=== PATIENT | male | born 1980 | race Caucasian/White ===

== ENCOUNTER 2020-10-02 13:58 | Inpatient (IN) | payer MEDICAID, OTHER ==
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
[2020-10-02 14:57] LABS: Appearance,Urine Clear (Clear); Bilirubin,Urine Negative (Negative); Blood,Urine Negative (Negative); Color,Urine Yellow; Glucose,Urine (UA) Negative (Negative); Ketones,Urine Negative (Negative); Leukocyte Esterase,Urine Negative (Negative); Nitrite,Urine Negative (Negative); PH, Urine 5.5 (5.0-8.0); Protein,Urine Negative (Negative); Specific Gravity,Urine 1.016 (1.001-1.035); Urobilinogen,Urine <2.0 mg/dL (<2.0)
[2020-10-02 15:08] LABS: Amphetamine Screen,Urine Not Detected (NotDetected); Benzodiazepines Screen,Urine Not Detected (NotDetected); Cocaine Screen,Urine Detected (NotDetected); Methadone Screen, Urine Detected (NotDetected); Opiate Screen,Urine Detected (NotDetected); Phencyclidine Screen,Urine Not Detected (NotDetected); Tricyclic Antidepressant,Urine Not Detected (NotDetected); Urn Cannabinoid Scrn Not Detected (NotDetected)
[2020-10-02 15:09] LABS: Barbiturate Screen,Urine Detected (NotDetected); Oxycodone Screen, Urine Not Detected (NotDetected)
[2020-10-02] MEDS ORDERED: LORazepam 2 MG/ML INJ IM STA (18:23)
[2020-10-02] MEDS ORDERED: diphenhydrAMINE 50 MG CAP PO STA (21:28)
[2020-10-02] MEDS ORDERED: LORazepam 1 MG TAB PO STA (21:28)
[2020-10-02] MEDS ORDERED: ACETAMINOPHEN TAB 325 MG TAB PO PRN (23:12)
[2020-10-02] MEDS ORDERED: MAG HYDROX/AL HYDROX/SIMETH 30 ML CUP PO PRN (23:12)
[2020-10-02] MEDS ORDERED: MAGNESIUM HYDROXIDE 2,400 MG/10 ML CUP PO PRN (23:12)
[2020-10-02] MEDS ORDERED: HALOPERIDOL LACTATE 5 MG/ML 1 ML VIAL IM PRN (23:15)
[2020-10-03] MEDS: LORazepam 1 MG TAB PO PRN ×3 (06:30→23:02)
[2020-10-03] MEDS: busPIRone HCl 10 MG TAB PO SCH ×2 (08:40→21:05)
[2020-10-03] MEDS: GABAPENTIN 300 MG CAP PO SCH ×3 (08:40→21:06)
[2020-10-03 08:43] LABS: Basophils # (A) 0.1 k/uL (0-0.2); Basophils % (A) 1 %; Eosinophils # (A) 0.1 k/uL (0-0.7); Eosinophils % (A) 1 %; HCT 44.5 % (39.0-53.0); HGB 14.8 gm/dL (13.0-17.5); Lymphocytes # (A) 1.2 k/uL (1.0-4.8); Lymphocytes % (A) 16 %; MCH 29.8 pg (25.0-35.0); MCHC 33.3 g/dL (31.0-37.0); MCV 89.6 fL (80.0-100.0); Mean Platelet Volume 6.5; Monocytes # (A) 0.3 k/uL (0-1.0); Monocytes % (A) 4 %; Neutrophils # (A) 5.9 k/uL (1.3-7.7); Neutrophils % (A) 77 %; Platelet Count 241 k/uL (150-450); RBC 4.97 m/uL (4.30-5.90); WBC 7.6 k/uL (3.8-10.6)
[2020-10-03] MEDS ORDERED: METHADONE HCL 10 MG/ML PO SCH (09:00)
[2020-10-03 09:03] LABS: ALT 24 U/L (4-49); AST 31 U/L (17-59); African American GFR (CKD) >90 (>60 ml/min/1.73 sqM); Albumin 4.4 g/dL (3.5-5.0); Alkaline Phosphatase 56 U/L (38-126); Anion Gap 5 mmol/L; Blood Urea Nitrogen 18 mg/dL (9-20); Calcium 9.3 mg/dL (8.4-10.2); Carbon Dioxide 25 mmol/L (22-30); Chloride 106 mmol/L (98-107); Cholesterol 159 mg/dL (<200); Glucose 122 mg/dL (74-99); HDL Cholesterol 56 mg/dL (40-60); LDL Cholesterol,Calculated 78 mg/dL (0-99); Non-African American GFR(CKD) >90 (>60 ml/min/1.73 sqM); Potassium 4.8 mmol/L (3.5-5.1); Sodium 136 mmol/L (137-145); Total Bilirubin 0.6 mg/dL (0.2-1.3); Total Protein 7.3 g/dL (6.3-8.2); Triglycerides 123 mg/dL (<150)
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
[2020-10-03] MEDS: FLUoxetine HCL 20 MG CAP PO SCH (10:28)
[2020-10-03 11:27] LABS: Appearance,Urine Clear (Clear); Bilirubin,Urine Negative (Negative); Blood,Urine Negative (Negative); Color,Urine Light Yellow; Glucose,Urine (UA) Negative (Negative); Ketones,Urine Negative (Negative); Leukocyte Esterase,Urine Negative (Negative); Nitrite,Urine Negative (Negative); Protein,Urine Negative (Negative); Specific Gravity,Urine 1.006 (1.001-1.035); Urobilinogen,Urine <2.0 mg/dL (<2.0)
[2020-10-03] MEDS: METHADONE 10 MG TAB PO SCH (12:42)
[2020-10-03] MEDS: METHADONE 5 MG TAB PO SCH (12:43)
[2020-10-03] MEDS: NICOTINE 14MG/24HR PATCH TRANSDERM SCH (15:08)
[2020-10-03 15:31] LABS: Hemoglobin A1C 5.6 % (4.0-6.0)
[2020-10-03] MEDS: OLANZapine 2.5 MG TAB PO SCH (21:06)
--- NOTE | 2020-10-04 00:21 | P.MDCNMH ---
History of Present Illness H&P Date: 10/03/20 Chief Complaint: Suicidal ideation 39-year-old male with hepatitis C, bipolar disorder, neuropathy Patient comes in due to suicidal ideation for a few days now he did not try anything however he has relapsed into using drugs again admits to using heroin injecting into to the neck veins. Before that he was clean for over a month, he takes methadone he is on 145 mg. Otherwise he denies any medical complaints at this time denies any symptoms suggestive of URI or GI symptoms denies any chest pain or trouble breathing He claims that his family is and friends are very supportive and he is hoping that he can get better and get rid of his addiction Review of Systems Pertinent positives as noted in HPI. All other systems were reviewed and are negative Past Medical History Additional Past Medical History / Comment(s): hep C History of Any Multi-Drug Resistant Organisms: None Reported Past Surgical History: Hernia Repair Past Psychological History: Anxiety, Depression Smoking Status: Current every day smoker Past Alcohol Use History: None Reported Past Drug Use History: None Reported - Past Family History family Family Medical History: No Reported History Medications and Allergies Home Medications Medication Instructions Recorded Confirmed Type Acetaminophen [Tylenol] 650 mg PO Q6H PRN 10/02/20 10/02/20 History Gabapentin 600 mg PO TID 10/02/20 10/02/20 History Gabapentin [Neurontin] 100 mg PO TID PRN 10/02/20 10/02/20 History Ibuprofen [Advil] 200 mg PO Q6H PRN 10/02/20 10/02/20 History busPIRone HCl [Buspar] 20 mg PO BID 10/02/20 10/02/20 History Methadone HCl [Methadone Intensol] 145 mg PO DAILY 10/03/20 10/03/20 History Allergies Allergy/AdvReac Type Severity Reaction Status Date / Time vancomycin Allergy Rash/Hives/ Verified 10/02/20 15:48 Swelling Physical Exam Vitals: Vital Signs Temp Pulse Resp BP 10/03/20 17:16 98.4 F 10/03/20 06:30 98.6 F 96 16 138/85 Constitutional: No acute distress, conversant, pleasant Eyes: Anicteric sclerae, moist conjunctiva, Pupils equal round reactive to light ENMT: NC/AT Oropharynx clear, no erythema, or exudates Neck: Supple, FROM, no masses, or JVD No carotid bruits No thyromegaly Lungs: Clear to auscultation Clear to percussion Normal respiratory effort, no accessory muscle use Cardiovascular: Heart regular in rate and rhythm, No murmurs, gallops, or rubs No peripheral edema Abdominal: Soft Nontender, no guarding, rebound or rigidity Abdomen moving with respiration Normoactive bowel sounds No hepatomegaly, No splenomegaly No palpable mass No abdominal wall hernia noted Skin: Normal temperature, tone, texture, turgor No induration No subcutaneous nodules No rash, lesions No ulcers Extremities: No digital cyanosis No clubbing Pedal pulses intact and symmetrical Radial pulses intact and symmetrical No calf tenderness Psychiatric: Alert and oriented to person, place and time Depressed affect fair judgement Neuro Muscles Strength 5/5 in all 4 extremities Sensation to light touch grossly present throughout Cranial nerves II-XII grossly intact No focal sensory deficits Lymphatics: no palpable cervical or supraclavicular , or inguinal lymph nodes Cranial Nerve Examination - Cranial Nerves Cranial Nerve II- Optic: Intact Cranial Nerve III- Oculomotor: Intact Cranial Nerve IV- Trochlear: Intact Cranial Nerve V- Trigeminal: Intact Cranial Nerve - Abducens: Intact Cranial Nerve VII- Facial: Intact Cranial Nerve VIII- Auditory: Intact Cranial Nerve IX- Glossopharyngeal: Intact Cranial Nerve X- Vagus: Intact Cranial Nerve XI- Accessory: Intact Cranial Nerve XII- Hypoglossal: Intact Results CBC & Chem 7: 10/03/20 07:57 10/03/20 07:57 Labs: Abnormal Lab Results - Last 24 Hours (Table) 10/03/20 Range/Units 07:57 Sodium 136 L (137-145) mmol/L Glucose 122 H (74-99) mg/dL TSH 0.408 L (0.465-4.680) mIU/L Assessment and Plan Assessment: Bipolar disorder Suicidal ideation Depression Management per psych Peripheral neuropathy Chronic bilateral hand pain Motrin when necessary Hep C Outpatient follow-up Substance abuse Counseled to quit drug of abuse Thank you for allowing us to participate in the care of this patient. We will follow peripherally. Do not hesitate to contact us with questions. Someone can be reached from the [facility] hospitalist group at all hours of the day at [phone].
[2020-10-04] MEDS: GABAPENTIN 300 MG CAP PO SCH ×3 (07:45→21:06)
[2020-10-04] MEDS: IBUPROFEN 600 MG TAB PO PRN (07:46)
[2020-10-04] MEDS: busPIRone HCl 10 MG TAB PO SCH ×3 (07:46→21:06)
[2020-10-04] MEDS: FLUoxetine HCL 20 MG CAP PO SCH (07:46)
[2020-10-04] MEDS: NICOTINE 14MG/24HR PATCH TRANSDERM SCH (07:47)
[2020-10-04] MEDS: METHADONE 10 MG TAB PO SCH (07:47)
[2020-10-04] MEDS: METHADONE 5 MG TAB PO SCH (07:48)
[2020-10-04] MEDS: LORazepam 1 MG TAB PO PRN (09:18)
--- NOTE | 2020-10-04 09:43 | P.PN ---
Progress Note - Text Progress Note Date: 10/04/20 Interval History: Patient was seen [wandering the hallways] and was directable and agreeable to speak with film writer in the office. Patient appears to be more cooperative with the film writer today and claims that his withdrawal symptoms have improved since being restarted on the methadone yesterday. She states that he was able to sleep better last night with the Zyprexa and wants to remain on the same dose. Patient has several questions about his medications and the doses. He claims that he is speaking with other patients on the unit and trying to go to groups as best as he can. He also claims that he spoke with access yesterday over the phone to try to arrange to go to rehab. He claims that his mood has been gradually improving however continues to endorse anxiety on the unit. He states that he has been eating his meals and has been showering. At this time patient denies any suicidal or homical ideations, intent or plan. Patient denies any auditory, visual hallucinations and denies any paranoia or delusions. Patient denies any side effects from the medications and has been compliant with meds. Mental Status Exam: General Appearance: Patient appears to be unwell, stated age is alert, directable, and attempts to cooperate. Patient appears to have improving hygiene and grooming. Behavior: Patient is seated without any agitated behavior. More cooperative today Speech: Patient's speech is fluent and nonpressured. Mood/Affect: Patient reports their mood is anxious, affect is congruent and constricted. Suicidality/Homicidality: Patient denies having any homicidal ideation intent or plan. Denies any suicidal ideations intent or plan Perceptions: Patient denies any visual hallucinations and denies any auditory hallucinations Though content/process: There is no evidence of any delusional thought content and thought process is linear and goal-directed. No delusions. Memory and concentration: AOX3, grossly intact for the purposes of this session Judgment and insight: poor, improving mildly Assessment Depressive disorder unspecified, rule out bipolar depression Opioid dependence, currently on agonist therapy Cocaine abuse Nicotine dependence Plan: -Patient is admitted under voluntary status to MHU for stabilization of psychiatric symptoms and safety. Patient has signed adult voluntary form and medication consent and is placed in patient's chart. -Medications : Will continue with Zyprexa 2.5 mg daily at bedtime for mood stabilization/insomnia. Increased Prozac 40 mg daily for mood. Continue with buspar 20 mg twice a day for anxiety. Added Vistaril every 8 hours 25 mg when necessary for anxiety. -Ativan and Haldol PRN for agitation/aggression -reviewed ekg. Continue with home dosing of methadone from [facility] at 145mg daily. -NRT - nicotine patch -SW on board for discharge planning. Encourage patient to participate in groups to work on coping skills. We'll ask licensed social worker to follow-up with Tal Borrego about possible intake date for patient to go to rehab.
[2020-10-04] MEDS: hydrOXYzine pamoate 25 MG CAP PO PRN (12:01)
[2020-10-04] MEDS: OLANZapine 2.5 MG TAB PO SCH (21:06)
[2020-10-05] MEDS: FLUoxetine HCL 20 MG CAP PO SCH (08:06)
[2020-10-05] MEDS: busPIRone HCl 10 MG TAB PO SCH ×3 (08:06→21:17)
[2020-10-05] MEDS: NICOTINE 14MG/24HR PATCH TRANSDERM SCH (08:06)
[2020-10-05] MEDS: METHADONE 10 MG TAB PO SCH (08:07)
[2020-10-05] MEDS: GABAPENTIN 300 MG CAP PO SCH ×3 (08:07→21:16)
[2020-10-05] MEDS: METHADONE 5 MG TAB PO SCH (08:09)
[2020-10-05] MEDS: IBUPROFEN 600 MG TAB PO PRN (08:09)
[2020-10-05] MEDS: LORazepam 1 MG TAB PO PRN ×2 (08:10→15:34)
--- NOTE | 2020-10-05 10:30 | P.PN ---
Progress Note - Text Progress Note Date: 10/05/20 Interval History: Patient was seen sitting in a group this morning and was directable and agreea ble to speak with newswriter in the office. Patient appears to be more cooperative with the newswriter today. He claims that he is doing overall better with regards to his medications however continues to state that he is been having racing thoughts and even an increase in goal-directed thinking. For example he spoke about wanting tasks the nurses for "cleaning supplies so I can clean the whole unit throughout the night". He states that he has not done this however has had continued struggles with racing thoughts. He was requesting to have his methadone decreased by 5 mg for tomorrow and states that his ultimate goal will be to decrease his methadone dose as low as he can. He states that he was able to sleep approximately 6 hours last night and claims that he woke up early and continued to have racing thoughts. He states that he has been trying to go to groups and participate as best as he can. He claims that he has not heard an update from access about his rehab placement. He claims that his mood has been gradually improving however continues to endorse anxiety on the unit. He states that he has been eating his meals and has been showering. At this time patient denies any suicidal or homical ideations, intent or plan. Patient denies any auditory, visual hallucinations. Patient denies any side effects from the medications and has been compliant with meds. Mental Status Exam: General Appearance: Patient appears to be stated age is alert, directable, and attempts to cooperate. Patient appears to have improving hygiene and grooming. Behavior: Patient is seated without any agitated behavior. More cooperative today Speech: Patient's speech is fluent and nonpressured. Mood/Affect: Patient reports their mood is anxious and depressed, affect is congruent and constricted. Suicidality/Homicidality: Patient denies having any homicidal ideation intent or plan. Denies any suicidal ideations intent or plan Perceptions: Patient denies any visual hallucinations and denies any auditory hallucinations Though content/process: There is no evidence of any delusional thought content and thought process is linear and goal-directed. No delusions. Racing thoughts and flight of ideas. Memory and concentration: AOX3, grossly intact for the purposes of this session Judgment and insight: poor, improving mildly Assessment Bipolar disorder, currently depressed Opioid dependence, currently on agonist therapy Cocaine abuse Nicotine dependence Plan: -Patient is admitted under voluntary status to MHU for stabilization of psychiatric symptoms and safety. Patient has signed adult voluntary form and medication consent and is placed in patient's chart. -Medications : Will increase Zyprexa 5 mg daily at bedtime for mood stabilization/insomnia. Increased Prozac 40 mg daily for mood. Continue with buspar 20 mg twice a day for anxiety. Continue with Vistaril every 8 hours 25 mg when necessary for anxiety. -Ativan and Haldol PRN for agitation/aggression -reviewed ekg. decreased methadone at patient's request to 140 mg daily. -NRT - nicotine patch -SW on board for discharge planning. Encourage patient to participate in groups to work on coping skills. We'll ask social media project manager to follow-up with [facility] about possible intake date for patient to go to rehab. likely discharge early next week.
[2020-10-05] MEDS: OLANZapine 5 MG TAB PO SCH (21:16)
[2020-10-05] MEDS: hydrOXYzine pamoate 25 MG CAP PO PRN (21:17)
[2020-10-06] MEDS: NICOTINE 14MG/24HR PATCH TRANSDERM SCH (07:44)
[2020-10-06] MEDS: FLUoxetine HCL 20 MG CAP PO SCH (07:44)
[2020-10-06] MEDS: busPIRone HCl 10 MG TAB PO SCH ×3 (07:44→20:51)
[2020-10-06] MEDS: GABAPENTIN 300 MG CAP PO SCH ×3 (07:44→20:51)
[2020-10-06] MEDS: METHADONE 10 MG TAB PO SCH (07:45)
[2020-10-06] MEDS: IBUPROFEN 600 MG TAB PO PRN (08:26)
[2020-10-06] MEDS: hydrOXYzine pamoate 25 MG CAP PO PRN ×2 (08:27→20:52)
--- NOTE | 2020-10-06 10:47 | P.PN ---
Progress Note - Text Progress Note Date: 10/06/20 Interval History: Patient was seen wandering the hallways this morning and was directable and ag reeable to speak with policy writer in the office. Patient appears to be more cooperative with the policy writer today. He claims that he is feeling much better today with regard to his mood and anxiety. He states that he feels more optimistic about the future as he was able to get into [facility] on Thursday. He states that his father will be coming to pick him up and taken straight from the hospital. He states that he was able to sleep approximately 9 hours last night on the Zyprexa and wanted to remain at the same dose. He states that he has been trying to go to groups and participate as best as he can. He states that he has been eating his meals and has been showering. At this time patient denies any suicidal or homical ideations, intent or plan. Patient denies any auditory, visual hallucinations. Patient denies any side effects from the medications and has been compliant with meds. Mental Status Exam: General Appearance: Patient appears to be stated age is alert, directable, and attempts to cooperate. Patient appears to have improving hygiene and grooming. Behavior: Patient is seated without any agitated behavior. More cooperative today Speech: Patient's speech is fluent and nonpressured. Mood/Affect: Patient reports their mood is improving, affect is congruent and constricted. Suicidality/Homicidality: Patient denies having any homicidal ideation intent or plan. Denies any suicidal ideations intent or plan Perceptions: Patient denies any visual hallucinations and denies any auditory hallucinations Though content/process: There is no evidence of any delusional thought content and thought process is linear and goal-directed. No delusions. More future oriented. Memory and concentration: AOX3, grossly intact for the purposes of this session Judgment and insight: improving mildly Assessment Bipolar disorder, currently depressed Opioid dependence, currently on agonist therapy Cocaine abuse Nicotine dependence Plan: -Patient is admitted under voluntary status to MHU for stabilization of psychiatric symptoms and safety. Patient has signed adult voluntary form and medication consent and is placed in patient's chart. -Medications : Will continue with Zyprexa 5 mg daily at bedtime for mood stabilization/insomnia. Continue with Prozac 40 mg daily for mood. Continue with buspar 20 mg twice a day for anxiety. Continue with Vistaril every 8 hours 25 mg when necessary for anxiety. -Ativan and Haldol PRN for agitation/aggression -reviewed ekg. continue with methadone at 140 mg daily. -NRT - nicotine patch -SW on board for discharge planning. Encourage patient to participate in groups to work on coping skills. Patient apparently has a bed at [facility] on Thursday and his father will be able to pick him up and drive him to the intake appointment.
[2020-10-06] MEDS: LORazepam 1 MG TAB PO PRN (13:26)
[2020-10-06] MEDS: OLANZapine 5 MG TAB PO SCH (20:51)
[2020-10-07] MEDS: METHADONE 10 MG TAB PO SCH (07:47)
[2020-10-07] MEDS: FLUoxetine HCL 20 MG CAP PO SCH (07:48)
[2020-10-07] MEDS: NICOTINE 14MG/24HR PATCH TRANSDERM SCH (07:48)
[2020-10-07] MEDS: GABAPENTIN 300 MG CAP PO SCH ×3 (07:48→20:42)
[2020-10-07] MEDS: busPIRone HCl 10 MG TAB PO SCH ×3 (07:48→20:42)
[2020-10-07] MEDS: IBUPROFEN 600 MG TAB PO PRN (08:29)
[2020-10-07] MEDS: LORazepam 1 MG TAB PO PRN ×3 (08:29→23:16)
[2020-10-07] MEDS: hydrOXYzine pamoate 25 MG CAP PO PRN ×2 (12:18→20:43)
--- NOTE | 2020-10-07 12:43 | P.PN ---
Progress Note - Text Progress Note Date: 10/07/20 Interval History: Patient was seen taking part in group this morning and was directable and agre eable to speak with sba underwriter in the office. Patient appears to be more cooperative with the sba underwriter today. He states that he was very thankful for getting treatment on the unit and claims that he is feeling much better terms of his anxiety and depression. He states that he still continues to deal with anxiety while being here on the unit however does state that the BuSpar and Vistaril have been helping and is going to take the Vistaril more frequently throughout the day. He states that he has been going to groups and participate as best as he can. He states that he feels more optimistic about the future as he was able to get into [facility] on Thursday. He had several questions about his medications and what he'll be taking at [facility]. He states that his father will be coming to pick him up and taken straight from the hospital. He states that he slept well last night throughout the night. He states that he has been eating his meals and has been showering. At this time patient denies any suicidal or homical ideations, intent or plan. Patient denies any auditory, visual hallucinations. Patient denies any side effects from the medications and has been compliant with meds. Mental Status Exam: General Appearance: Patient appears to be stated age is alert, directable, and attempts to cooperate. Patient appears to have improving hygiene and grooming. Behavior: Patient is seated without any agitated behavior. More cooperative today Speech: Patient's speech is fluent and nonpressured. Mood/Affect: Patient reports their mood is improving, affect is congruent and constricted. Suicidality/Homicidality: Patient denies having any homicidal ideation intent or plan. Denies any suicidal ideations intent or plan Perceptions: Patient denies any visual hallucinations and denies any auditory hallucinations Though content/process: There is no evidence of any delusional thought content and thought process is linear and goal-directed. No delusions. More future oriented. Memory and concentration: AOX3, grossly intact for the purposes of this session Judgment and insight: improving mildly Assessment Bipolar disorder, currently depressed Opioid dependence, currently on agonist therapy Cocaine abuse Nicotine dependence Plan: -Patient is admitted under voluntary status to MHU for stabilization of psychiatric symptoms and safety. Patient has signed adult voluntary form and medication consent and is placed in patient's chart. -Medications : Will continue with Zyprexa 5 mg daily at bedtime for mood stabilization/insomnia. Continue with Prozac 40 mg daily for mood. Continue with buspar 20 mg twice a day for anxiety. Continue with Vistaril every 8 hours 25 mg when necessary for anxiety. -Ativan and Haldol PRN for agitation/aggression -reviewed ekg. continue with methadone at 140 mg daily. -NRT - nicotine patch -SW on board for discharge planning. Encourage patient to participate in groups to work on coping skills. Patient apparently has a bed at [facility] on Thursday and his father will be able to pick him up and drive him to the intake appointment.
[2020-10-07] MEDS: OLANZapine 5 MG TAB PO SCH (20:42)
[2020-10-08] MEDS: GABAPENTIN 300 MG CAP PO SCH (08:01)
[2020-10-08] MEDS: busPIRone HCl 10 MG TAB PO SCH (08:01)
[2020-10-08] MEDS: NICOTINE 14MG/24HR PATCH TRANSDERM SCH (08:01)
[2020-10-08] MEDS: METHADONE 10 MG TAB PO SCH (08:02)
[2020-10-08] MEDS: FLUoxetine HCL 20 MG CAP PO SCH (08:02)
[2020-10-08 08:10] VITALS: BP 145/85; PULSE 89; RESP 20; TEMP 98.1
[2020-10-08] MEDS: IBUPROFEN 600 MG TAB PO PRN (08:50)
[2020-10-08] MEDS: hydrOXYzine pamoate 25 MG CAP PO PRN (08:51)
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
== END 2020-10-08 10:15 | DRG 885 ==
LOC: EC 13:58 → 3MHU 22:59
PROVIDERS: ADMIT Psychiatry & Neurology Psychiatry; ATTEND Psychiatry & Neurology Psychiatry
DX: F31.30 Bipolar disorder, current episode depressed, mild or moderate severity, unspecified (principal); F11.20 Opioid dependence, uncomplicated; R45.851 Suicidal ideations; F15.10 Other stimulant abuse, uncomplicated; F14.10 Cocaine abuse, uncomplicated; Z20.828 Contact with and (suspected) exposure to other viral communicable diseases; G62.9 Polyneuropathy, unspecified; G47.00 Insomnia, unspecified; F41.9 Anxiety disorder, unspecified; F17.200 Nicotine dependence, unspecified, uncomplicated; Z79.899 Other long term (current) drug therapy; Z71.41 Alcohol abuse counseling and surveillance of alcoholic; Z71.51 Drug abuse counseling and surveillance of drug abuser; Z71.6 Tobacco abuse counseling; Z87.19 Personal history of other diseases of the digestive system; Z98.890 Other specified postprocedural states; Z59.0 Homelessness; Z91.410 Personal history of adult physical and sexual abuse; Z91.411 Personal history of adult psychological abuse; W22.8XXA Striking against or struck by other objects, initial encounter; Z88.1 Allergy status to other antibiotic agents; Z81.8 Family history of other mental and behavioral disorders
CPT/HCPCS: 80053; 80061; 80306; 81003; 82075; 83036; 84439; 84443; 85025; 87635; 93005; 96372; 99285

== ENCOUNTER 2020-10-31 12:50 | Emergency (ER) | payer OTHER ==
--- NOTE | 2020-10-31 13:14 | ED ---
General Adult HPI - General Stated complaint: Mental Health Time Seen by Provider: 10/31/20 12:50 Source: patient, RN notes reviewed, old records reviewed - History of Present Illness Initial comments: This is a 39-year-old male who presents emergency Department with a past medical history significant for heroin abuse and methadone addiction. Patient states he went to [facility] about 22 days ago to get off of methadone. Patient states over the last 3 days he's been having suicidal thoughts and was thinking of stabbing himself with a scissors. Patient states today he felt like he might do something so he turned his physician and let them know he was having suicidal thoughts. Patient states in the past he tried overdosing on drugs and kill himself but he has never done anything else. Patient states he was here recently to mental health facility multiple medications but he doesn't believe they're working. Patient denies any physical complaints today. Patient denies any fever chills or cough. Patient denies any chest pain difficulty breathing or abdominal pain. - Related Data Home Medications Medication Instructions Recorded Confirmed Calcium/Magnesium/Zinc 2 tab PO TID PRN 10/31/20 10/31/20 [Vphpkwz-Yjilsxhlp-Xfac Tablet] Chlorpheniramine Maleate 4 mg PO Q4H PRN 10/31/20 10/31/20 [Chlor-Trimeton] Ibuprofen [Motrin] 600 mg PO Q6H PRN 10/31/20 10/31/20 Multivitamins, Thera [Multivitamin 1 tab PO DAILY 10/31/20 10/31/20 (formulary)] Thiamine [Vitamin B-1] 100 mg PO DAILY 10/31/20 10/31/20 Zofran 2mg/Ml 4 mg IM Q6H PRN 10/31/20 10/31/20 busPIRone HCl [Buspar] 10 mg PO TID PRN 10/31/20 10/31/20 cloNIDine HCL [Catapres] 0.1 mg PO Q4H PRN 10/31/20 10/31/20 ondansetron HCL [Zofran] 8 mg PO Q6H PRN 10/31/20 10/31/20 traZODone HCL 50 - 150 mg PO HS 10/31/20 10/31/20 Previous Rx's Medication Instructions Recorded Acetaminophen Tab [Tylenol] 650 mg PO Q4HR PRN tab 10/07/20 Allergies Allergy/AdvReac Type Severity Reaction Status Date / Time vancomycin Allergy Rash/Hives/ Verified 10/31/20 14:16 Swelling Review of Systems ROS Statement: Those systems with pertinent positive or pertinent negative responses have been documented in the HPI. ROS Other: All systems not noted in ROS Statement are negative. Past Medical History Additional Past Medical History / Comment(s): hep C History of Any Multi-Drug Resistant Organisms: None Reported Past Surgical History: Hernia Repair Past Psychological History: Anxiety, Depression Smoking Status: Current every day smoker Past Alcohol Use History: None Reported Past Drug Use History: None Reported - Past Family History family Family Medical History: No Reported History General Exam - General Exam Comments Initial Comments: GENERAL: Patient is well-developed and well-nourished. Patient is nontoxic and well- hydrated and is in no acute distress. ENT: Neck is soft and supple. No significant lymphadenopathy is noted. Oropharynx is clear. Moist mucous membranes. Neck has full range of motion without eliciting any pain. EYES: The sclera were anicteric and conjunctiva were pink and moist. Extraocular movements were intact and pupils were equal round and reactive to light. Eyelids were unremarkable. PULMONARY: Unlabored respirations. Good breath sounds bilaterally. No audible rales rhonchi or wheezing was noted. CARDIOVASCULAR: Femoral pulses are equal bilaterally ABDOMEN: Soft and nontender with normal bowel sounds. SKIN: Skin is clear with no lesions or rashes and otherwise unremarkable. NEUROLOGIC: Patient is alert and oriented x3. Cranial nerves II through XII are grossly intact. Motor and sensory are also intact. Normal speech, volume and content. Symmetrical smile. MUSCULOSKELETAL: Normal extremities with adequate strength and full range of motion. No lower extremity swelling or edema. No calf tenderness. LYMPHATICS: No significant lymphadenopathy is noted PSYCHIATRIC: Patient's having suicidal thoughts. Course Vital Signs 10/31/20 13:03 Temperature 98.4 F Pulse Rate 99 Respiratory 18 Rate Blood Pressure 142/81 O2 Sat by Pulse 99 Oximetry Medical Decision Making - Medical Decision Making Patient was evaluated by EPS and it was determined that the patient with the psychiatrist input that the patient could be followed up outpatient. The patient himself was comfortable with this and stated that it he is not suicidal at this time. - Lab Data Lab Results 12/30/20 Range/Units 13:31 Urine Opiates Screen Not Detected (NotDetected) Ur Oxycodone Screen Not Detected (NotDetected) Urine Methadone Screen Detected H (NotDetected) Ur Propoxyphene Screen Not Detected (NotDetected) Ur Barbiturates Screen Not Detected (NotDetected) U Tricyclic Antidepress Not Detected (NotDetected) Ur Phencyclidine Scrn Not Detected (NotDetected) Ur Amphetamines Screen Not Detected (NotDetected) U Methamphetamines Scrn Not Detected (NotDetected) U Benzodiazepines Scrn Not Detected (NotDetected) Urine Cocaine Screen Not Detected (NotDetected) U Marijuana (THC) Screen Not Detected (NotDetected) Disposition Clinical Impression: Depression Disposition: HOME SELF-CARE Condition: Good Instructions (If sedation given, give patient instructions): Depression (ED) Is patient prescribed a controlled substance at d/c from ED?: No Referrals: None,Stated [Primary Care Provider] - 1-2 days Time of Disposition: 17:02
[2020-10-31 13:51] LABS: Amphetamine Screen,Urine Not Detected (NotDetected); Barbiturate Screen,Urine Not Detected (NotDetected); Benzodiazepines Screen,Urine Not Detected (NotDetected); Cocaine Screen,Urine Not Detected (NotDetected); Methadone Screen, Urine Detected (NotDetected); Opiate Screen,Urine Not Detected (NotDetected); Oxycodone Screen, Urine Not Detected (NotDetected); Phencyclidine Screen,Urine Not Detected (NotDetected); Tricyclic Antidepressant,Urine Not Detected (NotDetected); Urn Cannabinoid Scrn Not Detected (NotDetected)
[2020-10-31] MEDS ORDERED: LORazepam 1 MG TAB PO STA (16:19)
[2020-10-31 17:43] VITALS: BP 123/83; PULSE 79; RESP 16; TEMP 97.7
== END 2020-10-31 17:44 | disposition home or self-care (01) ==
LOC: EC 12:50
DX: F32.9 Major depressive disorder, single episode, unspecified (principal); F41.9 Anxiety disorder, unspecified; F17.200 Nicotine dependence, unspecified, uncomplicated; Z79.899 Other long term (current) drug therapy; Z88.1 Allergy status to other antibiotic agents
CPT/HCPCS: 80306; 82075; 99285

== ENCOUNTER 2020-11-12 17:14 | Inpatient (IN) | payer MEDICAID, OTHER ==
[2020-11-12] MEDS ORDERED: ceFAZolin 1,000 MG VIAL (IM USE) IM STA (17:47)
[2020-11-12] MEDS ORDERED: LORazepam 2 MG/ML INJ IM STA (17:48)
[2020-11-12 18:21] LABS: Amphetamine Screen,Urine Detected (NotDetected); Barbiturate Screen,Urine Not Detected (NotDetected); Benzodiazepines Screen,Urine Not Detected (NotDetected); Cocaine Screen,Urine Detected (NotDetected); Methadone Screen, Urine Not Detected (NotDetected); Opiate Screen,Urine Detected (NotDetected); Oxycodone Screen, Urine Not Detected (NotDetected); Phencyclidine Screen,Urine Not Detected (NotDetected); Tricyclic Antidepressant,Urine Not Detected (NotDetected); Urn Cannabinoid Scrn Detected (NotDetected)
--- NOTE | 2020-11-12 19:12 | ED ---
Psych HPI - General Chief Complaint: Psychiatric Symptoms Stated Complaint: EPS eval Time Seen by Provider: 11/12/20 17:21 Source: patient Mode of arrival: ambulatory - History of Present Illness Initial Comments: This 39-year-old male presents complaining of depression with suicidal ideations. He states that he has had thoughts of overdosing on drugs as well as cutting himself as a plan to kill himself. He states that he has had these thoughts for the past several days. He relates a significant history of drug abuse. He currently is abusing methamphetamines, heroin, and cocaine. He states that he has been shooting up heroin intravenously all throughout his body and is complaining of some pain and swelling and his left hand where he was shooting up. He denies any injuries. He does feel as though he is going through some withdrawals. He does complain of anxiety as well. He denies any other complaints or modifying factors. - Related Data Home Medications Medication Instructions Recorded Confirmed busPIRone HCl [Buspar] 20 mg PO TID PRN 10/31/20 11/12/20 FLUoxetine HCL [PROzac] 40 mg PO DAILY 11/12/20 11/12/20 Gabapentin [Neurontin] 100 mg PO TID 11/12/20 11/12/20 Gabapentin [Neurontin] 300 mg PO BID PRN 11/12/20 11/12/20 Nicotine 14Mg/24Hr Patch [Habitrol] 1 patch TOPICAL DAILY 11/12/20 11/12/20 OLANZapine [ZyPREXA] 5 mg PO HS 11/12/20 11/12/20 hydrOXYzine pamoate [hydrOXYzine 25 mg PO TID PRN 11/12/20 11/12/20 PAMOATE] Allergies Allergy/AdvReac Type Severity Reaction Status Date / Time vancomycin Allergy Rash/Hives/ Verified 11/12/20 20:15 Swelling Review of Systems ROS Statement: Those systems with pertinent positive or pertinent negative responses have been documented in the HPI. ROS Other: All systems not noted in ROS Statement are negative. Past Medical History Additional Past Medical History / Comment(s): hep C History of Any Multi-Drug Resistant Organisms: None Reported Past Surgical History: Hernia Repair Past Psychological History: Anxiety, Depression Smoking Status: Current some day smoker Past Alcohol Use History: Occasional Past Drug Use History: Heroin, Methamphetamine - Past Family History family Family Medical History: No Reported History General Exam - General Exam Comments Initial Comments: Constitutional: Alert and oriented, no apparent distress Vitals: Reviewed, please see nursing notes HEENT: No gross trauma identified, trachea midline, no respiratory distress Neck: No tenderness, good range of motion Heart: Regular rate and rhythm without murmur Lungs: Clear to auscultation bilaterally, no wheezing rhonchi or rales Abdomen: No tenderness or peritoneal signs noted, nondistended Back: No tenderness Neurologic: No gross sensory or motor deficits identified Integumentary: There is erythema and slight swelling noted to the left hand more on the dorsal aspect proximal to the left metacarpophalangeal joint. No abscess is identified. There are multiple track alarcon noted into the hands, right neck, arms, and feet. Psychiatric: Alert and oriented, appears anxious. Limitations: no limitations Course Vital Signs 11/12/20 17:16 Temperature 99.5 F Pulse Rate 122 H Respiratory 18 Rate Blood Pressure 133/76 O2 Sat by Pulse 97 Oximetry Medical Decision Making - Medical Decision Making The patient was seen and examined. All diagnostics were reviewed. The urine drug screen is positive for cocaine, opiates, amphetamines, methamphetamines, and marijuana. It is felt as though he is cleared for further psychiatric evaluation. He is given Ancef 1 g IM as well as Ativan 1 mg IM. It is felt as though his left hand cellulitis is not severe and there is no evidence of abscess. It is felt as though this can be treated with oral antibiotics if inpatient psychiatric admission warranted. He is counseled regarding substance abuse. The psychiatric team evaluated the patient and case is discussed with the psychiatric nurse. They would like to admit him to the psychiatric unit for further treatment. It is felt as though he is medically cleared for this. It is felt as though he would benefit from antibiotic treatment for the left hand cellulitis and this will be ordered. - Lab Data Lab Results 11/12/20 Range/Units 17:35 Urine Opiates Screen Detected H (NotDetected) Ur Oxycodone Screen Not Detected (NotDetected) Urine Methadone Screen Not Detected (NotDetected) Ur Propoxyphene Screen Not Detected (NotDetected) Ur Barbiturates Screen Not Detected (NotDetected) U Tricyclic Antidepress Not Detected (NotDetected) Ur Phencyclidine Scrn Not Detected (NotDetected) Ur Amphetamines Screen Detected H (NotDetected) U Methamphetamines Scrn Detected H (NotDetected) U Benzodiazepines Scrn Not Detected (NotDetected) Urine Cocaine Screen Detected H (NotDetected) U Marijuana (THC) Screen Detected H (NotDetected) Disposition Clinical Impression: Suicidal ideation, Major depression, Polysubstance abuse, Cellulitis of left hand Disposition: ADMITTED IP TO THIS [facility] Condition: Fair Is patient prescribed a controlled substance at d/c from ED?: No Time of Disposition: 20:46 Decision Date: 11/12/20 Decision Time: 20:46
[2020-11-12] MEDS ORDERED: SULFAMETHOX-TMP 800-160MG 1 EACH TAB PO STA (20:46)
[2020-11-12] MEDS: SULFAMETHOX-TMP 800-160MG 1 EACH TAB PO SCH (21:04)
[2020-11-12] MEDS: CEPHALEXIN 500 MG CAP PO SCH (22:01)
[2020-11-12] MEDS ORDERED: MAGNESIUM HYDROXIDE 2,400 MG/10 ML CUP PO PRN (22:57)
[2020-11-12] MEDS ORDERED: MAG HYDROX/AL HYDROX/SIMETH 30 ML CUP PO PRN (22:57)
[2020-11-12] MEDS ORDERED: HALOPERIDOL LACTATE 5 MG/ML 1 ML VIAL IM PRN (22:59)
[2020-11-12] MEDS ORDERED: haloperidoL 5 MG TAB PO PRN (22:59)
[2020-11-12] MEDS ORDERED: LORazepam 2 MG/ML INJ IM PRN (23:15)
[2020-11-12] MEDS: NICOTINE 14MG/24HR PATCH TRANSDERM SCH (23:28)
[2020-11-13] MEDS: NICOTINE 14MG/24HR PATCH TRANSDERM SCH (08:17)
[2020-11-13] MEDS: SULFAMETHOX-TMP 800-160MG 1 EACH TAB PO SCH ×2 (08:17→20:55)
[2020-11-13] MEDS: CEPHALEXIN 500 MG CAP PO SCH ×4 (08:17→20:55)
[2020-11-13] MEDS ORDERED: ONDANSETRON 4 MG TAB PO PRN (09:35)
[2020-11-13] MEDS ORDERED: DIPHENOX-ATROP 2.5-0.025 MG 1 EACH TAB PO PRN (09:36)
[2020-11-13] MEDS: FLUoxetine HCL 20 MG CAP PO SCH (09:46)
[2020-11-13] MEDS: busPIRone HCl 10 MG TAB PO SCH ×2 (09:46→20:55)
[2020-11-13] MEDS: ACETAMINOPHEN TAB 325 MG TAB PO PRN ×2 (11:25→18:22)
[2020-11-13] MEDS: hydrOXYzine pamoate 25 MG CAP PO PRN ×2 (11:27→20:56)
--- NOTE | 2020-11-13 11:30 | P.HP ---
Psychiatric H&P - . H&P Date: 11/13/20 History & Physical: IDENTIFYING DATA: He is a 39-year-old male who presented to the psychiatric unit voluntarily with complaints of opiate withdrawal and suicidal thoughts. HISTORY OF PRESENT ILLNESS: We discharged him on 10/08/2020 with the diagnoses of bipolar disorder current episode depressed, opiate dependence on agonist therapy, and cocaine abuse. His discharge medications included BuSpar 20 mg 3 times a day, methadone 140 mg daily, Neurontin 600 mg 3 times a day, Prozac 40 mg daily, Vistaril 25 mg 3 times a day when necessary for anxiety and olanzapine 5 mg at bedtime. We assist him with admission to [facility] for treatment of his opiate use disorder including detoxification from chronic methadone use. He was in the [facility] program for 22 days during which she was tapered off methadone and prescribed Suboxone for opiate withdrawal symptoms. He stated that he was referred to a [facility] [place] after he left [facility] and was allegedly living in this [facility] until 3 days prior to admission. He presented to the ED on 10/31/2020 with complaints of suicidal ideation. According to medical record he told EPS nurse that he was meeting with his therapist, grabbed appear scissors and threatened to cut his thigh to stop "feeling the pain withdrawal." He returned the scissors to the therapist and apologize for behaviors. He told EPS nurse that he was anxious about going to the [facility] and "not having access to his medications." He withdrew his complaint of suicidal ideation during his conversation with EPS nurse and agreed to a safety plan. He would not explain why he left the [facility] 3 days ago. Since he left the [facility] he is been "living in the [facility]", injecting heroin, methamphetamine and cocaine. He is been purchasing drugs using his unemployment benefits. He presented to the ED on 11/12/2020 with complaints with complaints of suicidal ideation and thoughts of overdosing on drugs as well as cutting himself. In the ED was diagnosed with cellulitis of the hand and given Ancef 1 mg IM and prescribed Bactrim DS 1 tablet by mouth twice a day and Keflex 500 mg 4 times a day. During our interview he was markedly distressed, irritable and demanding. She was in obvious withdrawals with an elevated pulse rate (111-121), sweating, restlessness, tremor, irritability and piloerection. However, he denied that he is having withdrawal symptoms and was not interested in medications for opiate withdrawal with the exception of Ativan. He insisted on resuming his outpatient medications Prozac, Zyprexa, Vistaril and BuSpar. He became angry when I declined his request for Neurontin. I explained that there is no psychiatric indication for medication at this time. He complained of feeling depressed, anxious and "suicidal". He did not express a specific suicidal plan. He denied auditory, visual or olfactory hallucinations, ideas reference, thought insertion, thought broadcasting or thought control. His UDS was positive for opiates, amphetamines, methamphetamines, cocaine and marijuana. His breath alcohol level was 0. PAST PSYCHIATRIC HISTORY: He had one prior admission to this unit as described above. He alleged a history of bipolar illness and anxiety. He denied history of suicide attempts. PAST MEDICAL HISTORY: hepatitis C ALLERGIES: vancomycin SUBSTANCE USE HISTORY: I was unable to obtain a comprehensive substance abuse history. According to record he has a history of opiate, cocaine and marijuana use. He had been treated with methadone through [facility] where he was receiving 140 mg daily. According to the record he was discharged from another [facility] [place] due to behavioral problems. FAMILY PSYCHIATRIC/SUBSTANCE USE HISTORY: Depressive disorder LEGAL HISTORY: He is not on probation, parole or has pending charges. SOCIAL HISTORY: Since his discharge he has been unemployed and receiving unemployment assistance. Since he left [facility] he has had no stable housing. MENTAL STATUS EXAM: He presented as a disheveled, irritable and anxious 39-year-old male. He came to my office reluctantly. He made intermittent eye contact. He had a slight hand tremor and mild piloerection. Both his hands were swollen and erythematous with multiple punctate lesions. He had a distressed facial expression. He was alert and oriented to person, place and time. He was restless and tremulous. His speech was spontaneous with decreased rate and rhythm. His affect was irritable. He did not express suicidal ideation or wishes. He denied homicidal ideation. He complained of feeling hopeless, helpless and worthless. He did not express ideas reference, paranoid ideation or delusions. His thinking was concrete but his associations were coherent, logical and goal directed. He denied hallucinations did not appear to responding to internal stimuli. Global impression of intellect was average. He is aware of his illness and need for treatment. STRENGTHS: Stable income, past engagement with substance abuse services WEAKNESSES: Chronic substance use problems, lack of housing IMPRESSION: He is 39-year-old male who presented with complaints of suicidal ideation and relapse to heroin, methamphetamine and cocaine. His UDS on presentation to the ED was positive for opiates, amphetamines, methamphetamine, cocaine and marijuana. He had moderate opiate withdrawal symptoms with elevated resting pulse, sweating, restlessness, tremor irritability and piloerection. Since his discharge from our unit in October 2020 he spent 20 days at a residential substance abuse treatment program where he was detoxified from methadone. He was released to a [facility] and either left or was dismissed from the program 3 days prior to this admission. He should be treated inpatient basis with combination psychopharmacology and multimodal therapy. PRINCIPLE DIAGNOSIS: Opiate withdrawal, opiate use disorder severe, methamphetamine withdrawal, methamphetamine use disorder, cocaine use disorder, cannabis use disorder, substance-induced mood disorder, rule out bipolar disorder current episode depressed, lack of housing, possible antisocial p ersonality RECOMMENDATION: Admitted the psychiatric unit. Safety precautions. Consult medicine for initial physical exam and medical history. pillar worker to obtain initial psychosocial assessment and coordinate discharge and aftercare. Continue Bactrim DS 1 tablet by mouth twice a day and is Keflex 500 mg by mouth 4 times a day for treatment of cellulitis. Resume Zyprexa 5 mg at bedtime, Vistaril 25 mg by mouth 3 times a day when necessary for anxiety, BuSpar 10 mg twice a day, and fluoxetine 20 mg daily. Prescribed clonidine 0.2 mg 4 times a day when necessary, Lomotil one by mouth every 6 hours when necessary and Zofran 4 mg every 8 for opiate withdrawal symptoms. Encourage participation in therapeutic groups and activities. Evaluate clinical status response to treatment daily basis. Allergies Allergy/AdvReac Type Severity Reaction Status Date / Time vancomycin Allergy Rash/Hives/ Verified 11/12/20 20:15 Swelling Vital Signs Temp 98.5 F 11/12/20 22:54 Pulse 101 H 11/12/20 22:54 Resp 18 11/12/20 22:54 BP 140/78 11/12/20 22:54 Pulse Ox 96 11/12/20 22:54 Intake & Output 11/12/20 11/13/20 11/13/20 18:59 06:59 18:59 Weight 83.461 kg Laboratory Last Values Urine Opiates Screen Detected (NotDetected) H 11/12/20 17:35 Ur Oxycodone Screen Not Detected (NotDetected) 11/12/20 17:35 Urine Methadone Screen Not Detected (NotDetected) 11/12/20 17:35 Ur Propoxyphene Screen Not Detected (NotDetected) 11/12/20 17:35 Ur Barbiturates Screen Not Detected (NotDetected) 11/12/20 17:35 U Tricyclic Antidepress Not Detected (NotDetected) 11/12/20 17:35 Ur Phencyclidine Scrn Not Detected (NotDetected) 11/12/20 17:35 Ur Amphetamines Screen Detected (NotDetected) H 11/12/20 17:35 U Methamphetamines Scrn Detected (NotDetected) H 11/12/20 17:35 U Benzodiazepines Scrn Not Detected (NotDetected) 11/12/20 17:35 Urine Cocaine Screen Detected (NotDetected) H 11/12/20 17:35 U Marijuana (THC) Screen Detected (NotDetected) H 11/12/20 17:35 Coronavirus (PCR) Not Detected (Not Detectd) 11/12/20 20:41 11/13/20 08:59 11/13/20 11:24
[2020-11-13] MEDS: cloNIDine HCL 0.2 MG TAB PO PRN ×2 (18:22→23:29)
[2020-11-13] MEDS: LORazepam 1 MG TAB PO PRN (18:25)
[2020-11-13] MEDS: OLANZapine 5 MG TAB PO SCH (20:55)
--- NOTE | 2020-11-13 23:41 | P.MDCNMH ---
History of Present Illness H&P Date: 11/13/20 Chief Complaint: medical evaluation 39 year old male with depression patient comes in with depression and suicidal ideation for few days, he admits to polysubstance abuse, he shoot, meth , heroin, and cocain all over his body, he comes in with swollen hands with multiple red papules of injection sites. reports no numbness or tingling over his hands, but limited range of motion of the hand due to swelling. however, Per RN the erythema and range of motion is improving , no fever or chills. patient otherwise denies any URI symptoms, or GI changes he was started on keflex and bactrim in the ED and admitted to the Mental health unit Review of Systems Pertinent positives as noted in HPI. All other systems were reviewed and are negative Past Medical History Additional Past Medical History / Comment(s): hep C History of Any Multi-Drug Resistant Organisms: None Reported Past Surgical History: Hernia Repair Past Psychological History: Anxiety, Depression Smoking Status: Current some day smoker Past Alcohol Use History: Occasional Past Drug Use History: Heroin, Methamphetamine - Past Family History family Family Medical History: No Reported History Medications and Allergies Home Medications Medication Instructions Recorded Confirmed Type busPIRone HCl [Buspar] 20 mg PO TID PRN 10/31/20 11/12/20 History FLUoxetine HCL [PROzac] 40 mg PO DAILY 11/12/20 11/12/20 History Gabapentin [Neurontin] 100 mg PO TID 11/12/20 11/12/20 History Gabapentin [Neurontin] 300 mg PO BID PRN 11/12/20 11/12/20 History Nicotine 14Mg/24Hr Patch [Habitrol] 1 patch TOPICAL DAILY 11/12/20 11/12/20 History OLANZapine [ZyPREXA] 5 mg PO HS 11/12/20 11/12/20 History hydrOXYzine pamoate [hydrOXYzine 25 mg PO TID PRN 11/12/20 11/12/20 History PAMOATE] Allergies Allergy/AdvReac Type Severity Reaction Status Date / Time vancomycin Allergy Rash/Hives/ Verified 11/12/20 20:15 Swelling Physical Exam Vitals: Vital Signs Temp Pulse BP 11/13/20 23:31 97.8 F 95 132/70 11/13/20 18:23 109 H 133/80 11/13/20 18:15 98.2 F Constitutional: No acute distress, conversant, pleasant Eyes: Anicteric sclerae, moist conjunctiva, Pupils equal round reactive to light ENMT: NC/AT Oropharynx clear, no erythema, or exudates Neck: Supple, FROM, no masses, or JVD No carotid bruits No thyromegaly Lungs: Clear to auscultation Clear to percussion Normal respiratory effort, no accessory muscle use Cardiovascular: Heart regular in rate and rhythm, No murmurs, gallops, or rubs No peripheral edema Abdominal: Soft Nontender, no guarding, rebound or rigidity Abdomen moving with respiration Normoactive bowel sounds No hepatomegaly, No splenomegaly No palpable mass No abdominal wall hernia noted Skin: Normal temperature, tone, texture, turgor erythema over the dorsum of the left hand, with multiple red papular lesion (injection sites ) over his bilateral hands and left ankle , capillary refill is immediate, limited range of motion due to swelling. (per RN overall erythema is improving compared to yesterday ) Extremities: No digital cyanosis No clubbing Pedal pulses intact and symmetrical Radial pulses intact and symmetrical No calf tenderness Psychiatric: Alert and oriented to person, place and time depressed affect fair judgement Neuro Muscles Strength 5/5 in all 4 extremities (limited over the hand due to swelling ) Sensation to light touch grossly present throughout Cranial nerves II-XII grossly intact No focal sensory deficits Lymphatics: no palpable cervical or supraclavicular , or inguinal lymph nodes Cranial Nerve Examination - Cranial Nerves Cranial Nerve II- Optic: Intact Cranial Nerve III- Oculomotor: Intact Cranial Nerve IV- Trochlear: Intact Cranial Nerve V- Trigeminal: Intact Cranial Nerve - Abducens: Intact Cranial Nerve VII- Facial: Intact Cranial Nerve VIII- Auditory: Intact Cranial Nerve IX- Glossopharyngeal: Intact Cranial Nerve X- Vagus: Intact Cranial Nerve XI- Accessory: Intact Cranial Nerve XII- Hypoglossal: Intact Assessment and Plan Assessment: bilateral hand cellulitis left worse than right, erythema and swelling improving over all per RN continue bactrim and keflex check blood culture check CBC , cmp tylenol for fever afebrile motrin and warm compressors for pain and swelling PPI daily neurovascular monitoring of the hands depression and suicidal ideation management per psych polysubstance abuse counseled to quit drug of abuse nicotine replacement therapy follow up labs will follow up tomorrow to measure improvement in his hand swelling and erythema if patient becomes febrile or erythema and swelling worsens , will move to the medical side for IV antibiotics Thank you for allowing us to participate in the care of this patient. Do not hesitate to contact us with questions. Someone can be reached from the [facility] hospitalist group at all hours of the day at [phone].
--- NOTE | 2020-11-13 23:42 | P.PN ---
Progress Note - Text Progress Note Date: 11/13/20 notified of new consult , patient is currently medicated and sleeping
[2020-11-14] MEDS: IBUPROFEN 600 MG TAB PO SCH ×4 (00:04→21:02)
[2020-11-14 00:53] LABS: Basophils # (A) 0.1 k/uL (0-0.2); Basophils % (A) 1 %; Eosinophils # (A) 0.2 k/uL (0-0.7); Eosinophils % (A) 4 %; HCT 38.6 % (39.0-53.0); HGB 13.4 gm/dL (13.0-17.5); Lymphocytes # (A) 1.6 k/uL (1.0-4.8); Lymphocytes % (A) 31 %; MCH 30.1 pg (25.0-35.0); MCHC 34.6 g/dL (31.0-37.0); MCV 86.8 fL (80.0-100.0); Mean Platelet Volume 6.4; Monocytes # (A) 0.4 k/uL (0-1.0); Monocytes % (A) 8 %; Neutrophils # (A) 2.8 k/uL (1.3-7.7); Neutrophils % (A) 54 %; Platelet Count 217 k/uL (150-450); RBC 4.45 m/uL (4.30-5.90); RDW 13.7 % (11.5-15.5); WBC 5.2 k/uL (3.8-10.6)
[2020-11-14 00:59] LABS: ALT 74 U/L (4-49); AST 91 U/L (17-59); African American GFR (CKD) >90 (>60 ml/min/1.73 sqM); Albumin 3.4 g/dL (3.5-5.0); Alkaline Phosphatase 55 U/L (38-126); Anion Gap 6 mmol/L; Blood Urea Nitrogen 14 mg/dL (9-20); Calcium 8.6 mg/dL (8.4-10.2); Carbon Dioxide 24 mmol/L (22-30); Chloride 105 mmol/L (98-107); Glucose 103 mg/dL (74-99); Non-African American GFR(CKD) >90 (>60 ml/min/1.73 sqM); Potassium 3.8 mmol/L (3.5-5.1); Sodium 135 mmol/L (137-145); Total Bilirubin 0.4 mg/dL (0.2-1.3); Total Protein 6.2 g/dL (6.3-8.2)
[2020-11-14] MEDS: CEPHALEXIN 500 MG CAP PO SCH ×4 (08:31→21:03)
[2020-11-14] MEDS: FLUoxetine HCL 20 MG CAP PO SCH (08:31)
[2020-11-14] MEDS: PANTOPRAZOLE 40 MG TABLET PO SCH (08:31)
[2020-11-14] MEDS: NICOTINE 14MG/24HR PATCH TRANSDERM SCH (08:31)
[2020-11-14] MEDS: SULFAMETHOX-TMP 800-160MG 1 EACH TAB PO SCH ×2 (08:31→20:05)
[2020-11-14] MEDS: busPIRone HCl 10 MG TAB PO SCH ×2 (08:31→20:05)
[2020-11-14] MEDS: LORazepam 1 MG TAB PO PRN ×3 (08:33→23:34)
[2020-11-14] MEDS: cloNIDine HCL 0.2 MG TAB PO PRN ×2 (08:40→21:10)
--- NOTE | 2020-11-14 11:19 | P.PN ---
Progress Note - Text Progress Note Date: 11/14/20 Clinical Problems: Opiate withdrawal, opiate use disorder severe, methamphetamine withdrawal, methamphetamine use disorder, cocaine use disorder, cannabis use disorder, substance-induced mood disorder, rule out bipolar disorder current episode depressed, lack of housing Interim history: I reviewed the medical record, interviewed the patient and discussed his treatment and treatment plan during team meeting. Medical assessment appreciated. He complained of feeling anxious and experiencing heroin withdrawal. He complained of GI upset but denied nausea, loose stools, vomiting or diarrhea. He acknowledges that he was injecting heroin into his hands and feet. He denied that he was sharing needles during the 3 day. She participated as admission but admitted that he had shared needles with other users "recently." He alleged that he left a [facility] because the program did not offer therapeutic services. He complained that there are no groups and meetings. Ativan and Catapres have been effective in suppressing the withdrawal symptoms. We discussed aftercare and he expressed an interest in re-entering a residential substance abuse treatment program. She knew the telephone number to [facility] and made a phone call after our interview. He also again requested prescription for Neurontin. 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 After considerable discussion we agreed to begin duloxetine in place of Prozac. Mental status exam: He presented as a pale appearing moderately obese 39-year-old male who is irritable but cooperative. His pulse rate this morning was 100. He made eye contact and attended the interview. His hands were swollen and had multiple punctate lesions. He was not tremulous, restless or diaphoretic. He had punctate lesions on his feet but there is no evidence of infection. He had a angry facial expression. He showed psychomotor retardation but no abnormal movements. His speech was spontaneous with decreased rate and rhythm. His affect was depressed. He denied suicidal ideation and wishes. He expressed feelings of hopelessness and helplessness regarding his substance abuse. He ruminated about medications. He did not express ideas reference, paranoid ideation or delusions. His thinking was concrete but his associations were coherent, logical and goal directed. He denied experiencing hallucinations and did not appear to be responding to internal stimuli. Assessment: He is showing mild to moderate opiate withdrawal symptoms that respond to symptomatic treatment with Ativan and Catapres. He recognizes that he has substance abuse problem and expressed an interest in entering a treatment program. Plan: Continue inpatient treatment. Safety precautions. Close titrate fluoxetine with duloxetine. Continue other psychotropic medications-BuSpar 10 mg twice a day, Vistaril 25 mg every 8 hours when necessary for anxiety, Zyprexa 5 mg at bedtime. Continue Ativan, Catapres, Lomotil and Zofran for opiate with drawal symptoms. Ativan 1 mg IM/by mouth and/or Haldol 5 mg IM/by mouth for agitation or aggression. Social work to assist him with admission to a substance abuse treatment program. Encourage participation in therapeutic groups and activities. Evaluate clinical status response to treatment daily basis.
[2020-11-14] MEDS: hydrOXYzine pamoate 25 MG CAP PO PRN ×2 (13:07→21:07)
[2020-11-14] MEDS: ACETAMINOPHEN TAB 325 MG TAB PO PRN (13:08)
[2020-11-14 19:56] LABS: Hepatitis A Antibody IgM Non-Reactive (Non-Reactive); Hepatitis B Core IgM Non-Reactive (Non-Reactive); Hepatitis B Surface Antigen Non-Reactive (Non-Reactive); Hepatitis C IgG Antibody Reactive (Non-Reactive)
[2020-11-14] MEDS: OLANZapine 5 MG TAB PO SCH (20:05)
[2020-11-14 22:29] LABS: HIV 2 AB Non-Reactive (Non-Reactive); HIV AB P24 Non-Reactive (Non-Reactive); HIV P24 AG Non-Reactive (Non-Reactive)
--- NOTE | 2020-11-15 00:01 | P.PN ---
Subjective Progress Note Date: 11/14/20 Principal diagnosis: follow up for cellulitis of bilateral hands patient was seen and examined, no new complaints, swelling improving, range of motion improving , erythema almost gone, no fever over night , denies any numbness or tingling on his fingers Objective - Vital Signs Vital signs: Vital Signs Temp 98.4 F 11/14/20 18:28 Pulse 81 11/14/20 23:35 Resp 18 11/12/20 22:54 BP 113/59 11/14/20 23:35 Pulse Ox 96 11/12/20 22:54 - Exam Constitutional: vital signs stable, Not in acute distress, pleasant, conversant Lungs: Clear to auscultation bilaterally Cardiovascular: Regular rate and rhythm, no murmurs, no gallops, no rubs, no peripheral edema Extremities: swelling of bilateral hands, with improved range of motion over bilateral hands, no tenderness to passive or active range of motion, erythema resolved, capillary refill immediate over the fingers bilaterally , radial pulses palpable bilaterally and equal . bilateral erythematus papules unchanged , no discharge Psych: Alert, oriented to place, person and time, - Labs CBC & Chem 7: 11/14/20 00:36 11/14/20 00:36 Labs: Abnormal Lab Results - Last 24 Hours (Table) 11/14/20 11/14/20 11/14/20 Range/Units 00:36 00:36 00:36 Hct 38.6 L (39.0-53.0) % Sodium 135 L (137-145) mmol/L Glucose 103 H (74-99) mg/dL AST 91 H (17-59) U/L ALT 74 H (4-49) U/L Total Protein 6.2 L (6.3-8.2) g/dL Albumin 3.4 L (3.5-5.0) g/dL Hep C IgG Ab Reactive A (Non-Reactive) Assessment and Plan Assessment: bilateral hand cellulitis left worse than right, erythema and swelling improving over all continue bactrim and keflex blood culture no results yet no leukocytosis , no fever tylenol for fever as needed motrin and warm compressors for pain and swelling PPI daily neurovascular monitoring of the hands depression and suicidal ideation management per psych polysubstance abuse counseled to quit drug of abuse nicotine replacement therapy
[2020-11-15] MEDS: CEPHALEXIN 500 MG CAP PO SCH ×4 (07:41→21:39)
[2020-11-15] MEDS: NICOTINE 14MG/24HR PATCH TRANSDERM SCH (07:41)
[2020-11-15] MEDS: cloNIDine HCL 0.2 MG TAB PO PRN (07:41)
[2020-11-15] MEDS: LORazepam 1 MG TAB PO PRN ×3 (07:41→22:31)
[2020-11-15] MEDS: IBUPROFEN 600 MG TAB PO SCH ×3 (07:41→21:38)
[2020-11-15] MEDS: PANTOPRAZOLE 40 MG TABLET PO SCH (07:41)
[2020-11-15] MEDS: DULoxetine HCL 30 MG CAPSULE.DR PO SCH (07:42)
[2020-11-15] MEDS: busPIRone HCl 10 MG TAB PO SCH ×2 (07:42→20:48)
[2020-11-15] MEDS: SULFAMETHOX-TMP 800-160MG 1 EACH TAB PO SCH ×2 (07:43→20:48)
[2020-11-15] MEDS: FLUoxetine HCL 20 MG CAP PO SCH (07:43)
--- NOTE | 2020-11-15 11:03 | P.PN ---
Progress Note - Text Progress Note Date: 11/15/20 Clinical Problems: Opiate withdrawal, opiate use disorder severe, methamphetamine withdrawal, methamphetamine use disorder, cocaine use disorder, cannabis use disorder, substance-induced mood disorder, cellulitis of both hands improving, lack of housing Interim history: I reviewed the medical record, interviewed the patient and discussed his treatment and treatment plan during team meeting. Medical consult appreciated. He denied problems or concerns other than discharge. He completed the substance abuse access interview on Thursday and yesterday received an admission date for [facility] on 11/19/2019. He has minimum was signs and symptoms of opiate withdrawal he has "some" diarrhea and "occasionally" feels nauseous. Over the last 24 hours his pulse this range from 81-88. He continues to complain of anxiety and received Ativan and Catapres when necessary. He denied any side effects to the initial dose of Cymbalta. The first blood culture came back negative. Hepatitis C IgM antibody, hepatitis B surface antigen, hepatitis B core IgM antibody, HIV antigen/antibody were all negative. His hepatitis C IgG antibody was reactive. Mental status exam: He presented as a pale appearing moderately obese 39-year-old male who was superficially cooperative. He made eye contact and attended the interview. His hands were not recommended or inflamed. He was not tremulous, restless or diaphoretic. He had a blunted facial expression. He showed psychomotor retardation but no abnormal movements. His speech was spontaneous with decreased rate and rhythm. His affect was blunted. He denied suicidal ideation and wishes. He expressed feelings of hopelessness and helplessness regarding his substance abuse. He did not express ideas reference, paranoid ideation or delusions. His thinking was concrete but his associations were coherent, logical and goal directed. He denied experiencing hallucinations and did not appear to be responding to internal stimuli. Assessment: He is showing minimal opiate withdrawal symptoms that respond to symptomatic treatment with Ativan and Catapres. He has hepatitis C. He recognizes that he has substance abuse problem and expressed an interest in entering a treatment program. Plan: Discharge home on 11/16/2020. Safety precautions. Close titrate fluoxetine with duloxetine. Continue other psychotropic medications-BuSpar 10 mg twice a day, Vistaril 25 mg every 8 hours when necessary for anxiety, Zyprexa 5 mg at bedtime. Continue Ativan, Catapres, Lomotil and Zofran for opiate withdrawal symptoms. Ativan 1 mg IM/by mouth and/or Haldol 5 mg IM/by mouth for agitation or aggression. Social work to assist him with admission to a substance abuse treatment program. Encourage participation in therapeutic groups and activities. Evaluate clinical status response to treatment daily basis.
[2020-11-15] MEDS: hydrOXYzine pamoate 25 MG CAP PO PRN ×2 (12:50→20:49)
[2020-11-15] MEDS: OLANZapine 5 MG TAB PO SCH (20:48)
--- NOTE | 2020-11-16 00:25 | P.PN ---
Subjective Progress Note Date: 11/15/20 [place] patient [place] [facility] [place]. The patient noted that his hands continue to improve daily and that his ROM and swelling are significantly better. Denied fever, chills, nausea, vomiting. Objective - Vital Signs Vital signs: Vital Signs Temp 98.0 F 11/15/20 18:31 Pulse 88 11/15/20 07:46 Resp 16 11/15/20 07:16 BP 131/70 11/15/20 07:46 Pulse Ox 96 11/12/20 22:54 - Exam General: Non-toxic, in no acute distress, appears stated age, normal weight HEENT: NC/AT, anicteric sclerae, moist conjunctiva, no lid-lag, PERRLA Cardiovascular: S1/S2 wnl, no murmurs, rubs, or gallops Lungs: Clear to auscultation, normal respiratory effort, no accessory muscle use Abdominal: Soft, non-tender, non-distended, no guarding, rebound, or rigidity Extremities: Ari hand mild swelling, to mid-forearm, capillary refill intact of fingers ari, no erythema noted, needle alarcon of hands bis Psychiatric: Alert and oriented to person, place and time, appropriate affect Neuro: CN II-XII grossly intact, Strength 5/5 in all 4 extremities, Speech intact, Sensation to light touch grossly intact throughout - Labs CBC & Chem 7: 11/14/20 00:36 11/14/20 00:36 Labs: Microbiology - Last 24 Hours (Table) 11/14/20 00:36 Blood Culture - Preliminary Blood No Growth after 24 hours Assessment and Plan Plan: Ari hand cellulitis, improving -The patient had reportedly used standing puddle water when he tried to inject heroin -Strongly advised patient on importance of cessation from IVDU -C/w Keflex and Bactrim to complete 7 day course -No documented fevers -C/w neurovascular assessment of hands Depression and suicidal ideation -As per psychiatry
[2020-11-16 06:01] VITALS: TEMP 98.3
[2020-11-16] MEDS: CEPHALEXIN 500 MG CAP PO SCH (08:14)
[2020-11-16] MEDS: DULoxetine HCL 30 MG CAPSULE.DR PO SCH (08:14)
[2020-11-16] MEDS: NICOTINE 14MG/24HR PATCH TRANSDERM SCH (08:14)
[2020-11-16] MEDS: busPIRone HCl 10 MG TAB PO SCH (08:14)
[2020-11-16] MEDS: FLUoxetine HCL 20 MG CAP PO SCH (08:14)
[2020-11-16] MEDS: PANTOPRAZOLE 40 MG TABLET PO SCH (08:14)
[2020-11-16] MEDS: IBUPROFEN 600 MG TAB PO SCH (08:15)
[2020-11-16] MEDS: SULFAMETHOX-TMP 800-160MG 1 EACH TAB PO SCH (08:15)
[2020-11-16] MEDS: LORazepam 1 MG TAB PO PRN (08:16)
[2020-11-16 08:17] VITALS: BP 129/73; PULSE 92; RESP 20
--- NOTE | 2020-11-16 09:19 | P.DS ---
Providers Date of admission: 11/12/20 22:50 Expected date of discharge: 11/16/20 Attending physician: Richard Garcia MD Consults: 11/12/20 22:57 Consult Physician Routine Consulting Provider: Zachariah Enriquez Consult Reason/Comments: H&P and medical and cellulitis Do you want consulting provider notified?: Yes Primary care physician: Stated None - Discharge Diagnosis(es) (1) Bipolar disorder current episode depressed Current Visit: Yes Status: Acute Priority: High (2) Opioid use disorder Current Visit: Yes Status: Acute Priority: High (3) Methamphetamine abuse Current Visit: Yes Status: Acute Priority: High (4) Cocaine abuse Current Visit: Yes Status: Acute Priority: High (5) Lack of housing Current Visit: Yes Status: Acute Priority: Medium Hospital Course: Admission HPI: Admission note was completed by Dr. Garcia "He is a 39-year-old male who presented to the psychiatric unit voluntarily with complaints of opiate withdrawal and suicidal thoughts. We discharged him on 10/08/2020 with the diagnoses of bipolar disorder current episode depressed, opiate dependence on agonist therapy, and cocaine abuse. His discharge medications included BuSpar 20 mg 3 times a day, methadone 140 mg daily, Neurontin 600 mg 3 times a day, Prozac 40 mg daily, Vistaril 25 mg 3 times a day when necessary for anxiety and olanzapine 5 mg at bedtime. We assist him with admission to [facility] for treatment of his opiate use disorder including detoxification from chronic methadone use. He was in the [facility] program for 22 days during which she was tapered off methadone and prescribed Suboxone for opiate withdrawal symptoms. He stated that he was referred to a [facility] [place] after he left [facility] and was allegedly living in this [facility] house until 3 days prior to admission. He presented to the ED on 10/31/2020 with complaints of suicidal ideation. According to medical record he told EPS nurse that he was meeting with his therapist, grabbed appear scissors and threatened to cut his thigh to stop "feeling the pain withdrawal." He returned the scissors to the therapist and apologize for behaviors. He told EPS nurse that he was anxious about going to the [facility] house and "not having access to his medications." He withdrew his complaint of suicidal ideation during his conversation with EPS nurse and agreed to a safety plan. He would not explain why he left the [facility] house 3 days ago. Since he left the [facility] house he is been "living in the [facility]", injecting heroin, methamphetamine and cocaine. He is been purchasing drugs using his unemployment benefits. He presented to the ED on 11/12/2020 with complaints with complaints of suicidal ideation and thoughts of overdosing on drugs as well as cutting himself. In the ED was diagnosed with cellulitis of the hand and given Ancef 1 mg IM and prescribed Bactrim DS 1 tablet by mouth twice a day and Keflex 500 mg 4 times a day. During our interview he was markedly distressed, irritable and demanding. She was in obvious withdrawals with an elevated pulse rate (111-121), sweating, restlessness, tremor, irritability and piloerection. However, he denied that he is having withdrawal symptoms and was not interested in medications for opiate withdrawal with the exception of Ativan. He insisted on resuming his outpatient medications Prozac, Zyprexa, Vistaril and BuSpar. He became angry when I declined his request for Neurontin. I explained that there is no psychiatric indication for medication at this time. He complained of feeling depressed, anxious and "suicidal". He did not express a specific suicidal plan. He denied auditory, visual or olfactory hallucinations, ideas reference, thought insertion, thought broadcasting or thought control. His UDS was positive for opiates, amphetamines, methamphetamines, cocaine and marijuana. His breath alcohol level was 0." Hospital course: Upon admission to the unit patient was initially depressed and going through substance withdrawal. Patient was however directable and agreeable to commence treatment and signed adult voluntary form. Patient got along well with other patients on the unit and followed unit protocol. Patient was compliant with the medications and denied any side effects throughout hospital course. Patient was started on Cymbalta 30 mg daily and was titrated off of Prozac while on the unit. Patient was also started on Zyprexa 5 mg daily at bedtime for mood stabilization/insomnia, BuSpar 10 mg twice a day for anxiety, Vistaril 25 mg when necessary for anxiety, Catapres, Ativan, Lomotil and Zofran for opiate withdrawal symptoms. Patient spoke of his stressors and engaged in therapy both group and individual. Patient was also seen by medical team for history and physical exam. Patient had bilateral hand cellulitis from intravenous drug use and was seen by internal medicine and started on Bactrim and Keflex, this had improved while on the unit and patient was asked to continue on the antibiotic and follow-up with his PCP. Throughout the course of the hospitalization patient gradually improved with regards to mood, anxiety, sleep and became more future oriented with improved insight and judgment. On the day of discharge patient denied any suicidal or homicidal ideations intent or plan denied any auditory or visual hallucinations. Patient endorsed wanting to live for his future and his sobriety. The patient denied any access to guns or weapons. Evelin ferreira denied any paranoia and did not endorse any delusions. Patient does have a significant history of substance abuse and was counseled on abstaining from all substances including alcohol and marijuana. Patient was offered inpatient substance rehab and agreed and will be going to [facility] for his intake appointment on Thursday. Patient was also counseled on the medications and need for regular compliance and was encouraged to follow-up with their outpatient appointment for mental health and also for primary care. Prior to discharge a family meeting will be arranged by sr. social media & mobile manager to answer any questions and ensure safety upon discharge. Mental status exam: General Appearance: Patient appears to be normal stature, stated age is alert, pleasant, and cooperative. Patient is in no acute distress and has improved hygiene and grooming Behavior: Patient is calmly seated without any agitated behavior. Cooperative. Speech: Patient's speech is fluent and nonpressured. Mood/Affect: Patient reports their mood is "better", affect is congruent Suicidality/Homicidality: Patient denies having any suicidal or homicidal ideation intent or plan. Perceptions: Patient denies any auditory or visual hallucinations. Though content/process: There is no evidence of any delusional thought content and thought process is linear and goal-directed. more future oriented Memory and concentration: AOX3, grossly intact for the purposes of this session. Can spell "WORLD" backwards correctly. Judgment and insight: chronically poor, however has improved with guarded prognosis Impression: Opiate use disorder severe, methamphetamine use disorder, cocaine use disorder, cannabis use disorder, bipolar disorder current episode depressed, lack of housing Plan: -Continue with discharge today as patient has improved and stabilized psychiatrically and is not currently an imminent threat to himself and/or others. Patient will remain at chronically elevated risk for harm to self and/or others due to his impulsivity and polysubstance abuse. -Continue medications: Continue with Cymbalta 30 mg daily for mood/anxiety, BuSpar 10 mg twice a day for anxiety, Vistaril when necessary for anxiety, Zyprexa 5 mg daily at bedtime for mood stabilization/insomnia. Patient will also continue on Bactrim and Keflex antibiotics for bilateral hand cellulitis as recommended by internal medicine and patient will be following up with his PCP for this and seek urgent medical attention if this worsens. -Patient was counseled on the need for medication compliance and appropriate follow-up at mental health and also primary care for medical issues. Patient verbalized understanding and agreed. -Social work to arrange for and conduct family meeting to ensure safety upon discharge and answer any questions/concerns. Social work also to arrange for patients follow up appointments for psychiatric care along with follow up with primary care provider. -Patient counseled on abstaining from recreational drugs and marijuana and alcohol. Was informed/educated on the adverse effects on their physical and mental health. Patient verbally agreed and understood. Patient will be going to [facility] for rehab on Thursday and will be driven there by his mother. -Patient will be discharged to his mother's home today -Patient was instructed to return to the hospital or seek immediate medical care if their psychiatric or medical symptoms do worsen or reoccur. Allergies Allergy/AdvReac Type Severity Reaction Status Date / Time vancomycin Allergy Rash/Hives/ Verified 11/12/20 20:15 Swelling Laboratory Results WBC 5.2 k/uL (3.8-10.6) 11/14/20 00:36 RBC 4.45 m/uL (4.30-5.90) 11/14/20 00:36 Hgb 13.4 gm/dL (13.0-17.5) 11/14/20 00:36 Hct 38.6 % (39.0-53.0) L 11/14/20 00:36 MCV 86.8 fL (80.0-100.0) 11/14/20 00:36 MCH 30.1 pg (25.0-35.0) 11/14/20 00:36 MCHC 34.6 g/dL (31.0-37.0) 11/14/20 00:36 RDW 13.7 % (11.5-15.5) 11/14/20 00:36 Plt Count 217 k/uL (150-450) 11/14/20 00:36 MPV 6.4 11/14/20 00:36 Neutrophils % 54 % 11/14/20 00:36 Lymphocytes % 31 % 11/14/20 00:36 Monocytes % 8 % 11/14/20 00:36 Eosinophils % 4 % 11/14/20 00:36 Basophils % 1 % 11/14/20 00:36 Neutrophils # 2.8 k/uL (1.3-7.7) 11/14/20 00:36 Lymphocytes # 1.6 k/uL (1.0-4.8) 11/14/20 00:36 Monocytes # 0.4 k/uL (0-1.0) 11/14/20 00:36 Eosinophils # 0.2 k/uL (0-0.7) 11/14/20 00:36 Basophils # 0.1 k/uL (0-0.2) 11/14/20 00:36 Sodium 135 mmol/L (137-145) L 11/14/20 00:36 Potassium 3.8 mmol/L (3.5-5.1) 11/14/20 00:36 Chloride 105 mmol/L (98-107) 11/14/20 00:36 Carbon Dioxide 24 mmol/L (22-30) 11/14/20 00:36 Anion Gap 6 mmol/L 11/14/20 00:36 BUN 14 mg/dL (9-20) 11/14/20 00:36 Creatinine 0.82 mg/dL (0.66-1.25) 11/14/20 00:36 Est GFR (CKD-EPI)AfAm >90 (>60 ml/min/1.73 sqM) 11/14/20 00:36 Est GFR (CKD-EPI)NonAf >90 (>60 ml/min/1.73 sqM) 11/14/20 00:36 Glucose 103 mg/dL (74-99) H 11/14/20 00:36 Calcium 8.6 mg/dL (8.4-10.2) 11/14/20 00:36 Total Bilirubin 0.4 mg/dL (0.2-1.3) 11/14/20 00:36 AST 91 U/L (17-59) H 11/14/20 00:36 ALT 74 U/L (4-49) H 11/14/20 00:36 Alkaline Phosphatase 55 U/L (38-126) 11/14/20 00:36 Total Protein 6.2 g/dL (6.3-8.2) L 11/14/20 00:36 Albumin 3.4 g/dL (3.5-5.0) L 11/14/20 00:36 Urine Opiates Screen Detected (NotDetected) H 11/12/20 17:35 Ur Oxycodone Screen Not Detected (NotDetected) 11/12/20 17:35 Urine Methadone Screen Not Detected (NotDetected) 11/12/20 17:35 Ur Propoxyphene Screen Not Detected (NotDetected) 11/12/20 17:35 Ur Barbiturates Screen Not Detected (NotDetected) 11/12/20 17:35 U Tricyclic Antidepress Not Detected (NotDetected) 11/12/20 17:35 Ur Phencyclidine Scrn Not Detected (NotDetected) 11/12/20 17:35 Ur Amphetamines Screen Detected (NotDetected) H 11/12/20 17:35 U Methamphetamines Scrn Detected (NotDetected) H 11/12/20 17:35 U Benzodiazepines Scrn Not Detected (NotDetected) 11/12/20 17:35 Urine Cocaine Screen Detected (NotDetected) H 11/12/20 17:35 U Marijuana (THC) Screen Detected (NotDetected) H 11/12/20 17:35 Coronavirus (PCR) Not Detected (Not Detectd) 11/12/20 20:41 Hepatitis A IgM Ab Non-Reactive (Non-Reactive) 11/14/20 00:36 Hep Bs Antigen Non-Reactive (Non-Reactive) 11/14/20 00:36 Hep B Core IgM Ab Non-Reactive (Non-Reactive) 11/14/20 00:36 Hep C IgG Ab Reactive (Non-Reactive) A 11/14/20 00:36 HIV-1 Antibody Non-Reactive (Non-Reactive) 11/14/20 00:36 HIV Ag/Ab Interpret 11/14/20 00:36 HIV p24 Antibody Non-Reactive (Non-Reactive) 11/14/20 00:36 HIV-2 Antibody Non-Reactive (Non-Reactive) 11/14/20 00:36 HIV P24 Antigen Non-Reactive (Non-Reactive) 11/14/20 00:36 Vital Signs Temp 98.3 F 11/16/20 05:37 Pulse 92 11/16/20 08:17 Resp 20 11/16/20 08:17 BP 129/73 11/16/20 08:17 Pulse Ox 96 11/12/20 22:54 Patient Condition at Discharge: Stable Plan - Discharge Summary New Discharge Prescriptions: New Sulfamethox-Tmp 800-160Mg [Bactrim DS 800-160 mg] 1 each PO BID #28 tab busPIRone HCl [Buspar] 10 mg PO BID #60 tab DULoxetine HCL [Cymbalta] 30 mg PO DAILY #30 capsule. Cephalexin [Keflex] 500 mg PO QID #56 cap hydrOXYzine pamoate [Vistaril] 25 mg PO Q8HR PRN #90 cap PRN Reason: Anxiety Continue Nicotine 14Mg/24Hr Patch [Habitrol] 1 patch TOPICAL DAILY OLANZapine [ZyPREXA] 5 mg PO HS #30 tab Discontinued busPIRone HCl [Buspar] 20 mg PO TID PRN PRN Reason: Anxiety Gabapentin [Neurontin] 100 mg PO TID hydrOXYzine pamoate [hydrOXYzine PAMOATE] 25 mg PO TID PRN PRN Reason: Anxiety FLUoxetine HCL [PROzac] 40 mg PO DAILY Gabapentin [Neurontin] 300 mg PO BID PRN PRN Reason: Pain Discharge Medication List Nicotine 14Mg/24Hr Patch [Habitrol] 1 patch TOPICAL DAILY 11/12/20 [History] Cephalexin [Keflex] 500 mg PO QID #56 cap 11/15/20 [Rx] DULoxetine HCL [Cymbalta] 30 mg PO DAILY #30 capsule. 11/15/20 [Rx] OLANZapine [ZyPREXA] 5 mg PO HS #30 tab 11/15/20 [Rx] Sulfamethox-Tmp 800-160Mg [Bactrim DS 800-160 mg] 1 each PO BID #28 tab 11/15/20 [Rx] busPIRone HCl [Buspar] 10 mg PO BID #60 tab 11/15/20 [Rx] hydrOXYzine pamoate [Vistaril] 25 mg PO Q8HR PRN #90 cap 11/15/20 [Rx] Follow up Appointment(s)/Referral(s): [facility] [Outside] - 11/19/20 11:45 am Patient Instructions/Handouts: How to Stop Smoking (DC), Bipolar Disorder (DC), Depression (DC) Activity/Diet/Wound Care/Special Instructions: Activity and diet as tolerated. Avoid the use of street drugs and alcohol. Take all medications as prescribed. When you are in need of refills on your medications please contact your medical provider and/or outpatient psychiatrist to have this done. Please go to scheduled outpatient appointment for aftercare treatment. If symptoms return or become worse, call the crisis line at and/or go to the nearest emergency room for evaluation. Discharge Disposition: HOME SELF-CARE
== END 2020-11-16 09:56 | disposition home or self-care (01) | DRG 897 ==
LOC: EC 17:14 → 3MHU 22:50
PROVIDERS: ADMIT Psychiatry & Neurology Psychiatry; ATTEND Psychiatry & Neurology Psychiatry
DX: F11.23 Opioid dependence with withdrawal (principal); R45.851 Suicidal ideations; F31.30 Bipolar disorder, current episode depressed, mild or moderate severity, unspecified; L03.114 Cellulitis of left upper limb; L03.113 Cellulitis of right upper limb; F19.94 Other psychoactive substance use, unspecified with psychoactive substance-induced mood disorder; F15.13 Other stimulant abuse with withdrawal; F14.10 Cocaine abuse, uncomplicated; Z20.822 Contact with and (suspected) exposure to COVID-19; F17.200 Nicotine dependence, unspecified, uncomplicated; F41.9 Anxiety disorder, unspecified; B19.20 Unspecified viral hepatitis C without hepatic coma; F12.10 Cannabis abuse, uncomplicated; G47.00 Insomnia, unspecified; R45.87 Impulsiveness; Z79.899 Other long term (current) drug therapy; Z98.890 Other specified postprocedural states; Z56.0 Unemployment, unspecified; Z59.0 Homelessness; Z88.1 Allergy status to other antibiotic agents; Z81.8 Family history of other mental and behavioral disorders
CPT/HCPCS: 80053; 80074; 80306; 82075; 85025; 87040; 87390; 87635; 96372; 99285

== ENCOUNTER 2020-12-12 20:05 | Inpatient (IN) | payer MEDICAID, OTHER ==
--- NOTE | 2020-12-12 20:57 | ED ---
Psych HPI - General Chief Complaint: Psychiatric Symptoms Stated Complaint: Mental Health Time Seen by Provider: 12/12/20 20:14 Source: patient Mode of arrival: ambulatory - History of Present Illness Initial Comments: 39 year-old male patient presents to the emergency department for evaluation of suicidal ideation. Patient states he has been trying to kill himself for the last three days by overdosing on heroin. Patient admits to IV injection of heroin, cocaine, and methamphetamines. His any hallucinations. Patient states he lost his position at a [employer] and is now homeless which is making him feel like he wants to . Patient states he feels like he has nothing to live for. Patient has been admitted to mental health unit in the past. Denies currently taking any medications for depression or other medical conditions. Denies any current injuries or wounds. Patient denies any recent rash, fever, chills, cough, shortness of breath, chest pain, abdominal pain, nausea, vomiting, diarrhea, constipation, back pain, numbness, tingling, dizziness, weakness, hematuria, dysuria, urinary urgency, urinary frequency, headache, visual changes, or any other complaints. - Related Data Home Medications Medication Instructions Recorded Confirmed Nicotine 14Mg/24Hr Patch [Habitrol] 1 patch TOPICAL DAILY 11/12/20 12/12/20 Gabapentin [Neurontin] 100 mg PO TID 12/12/20 12/12/20 Previous Rx's Medication Instructions Recorded DULoxetine HCL [Cymbalta] 30 mg PO DAILY #30 capsule. 11/15/20 OLANZapine [ZyPREXA] 5 mg PO HS #30 tab 11/15/20 busPIRone HCl [Buspar] 10 mg PO BID #60 tab 11/15/20 hydrOXYzine pamoate [Vistaril] 25 mg PO Q8HR PRN #90 cap 11/15/20 Allergies Allergy/AdvReac Type Severity Reaction Status Date / Time vancomycin Allergy Rash/Hives/ Verified 12/12/20 20:09 Swelling Review of Systems ROS Statement: Those systems with pertinent positive or pertinent negative responses have been documented in the HPI. ROS Other: All systems not noted in ROS Statement are negative. Past Medical History Additional Past Medical History / Comment(s): hep C History of Any Multi-Drug Resistant Organisms: None Reported Past Surgical History: Hernia Repair Past Psychological History: Anxiety, Depression Smoking Status: Current every day smoker Past Alcohol Use History: None Reported, Occasional Past Drug Use History: Cocaine, Heroin, Methamphetamine - Past Family History family Family Medical History: No Reported History General Exam Limitations: no limitations General appearance: alert, in no apparent distress, other (This is a well- developed, well-nourished adult male patient in mild distress related to anxiety. Vital signs upon presentation are temperature 98.6F, pulse 105, respirations 18, blood pressure 160/79, pulse ox 95% on room air.) Eye exam: Present: normal appearance, PERRL, EOMI. Absent: scleral icterus, conjunctival injection, periorbital swelling ENT exam: Present: normal exam, normal oropharynx, mucous membranes moist Neck exam: Present: other (track alarcon over the bilateral external jugular region) Respiratory exam: Present: normal lung sounds bilaterally. Absent: respiratory distress, wheezes, rales, rhonchi, stridor Cardiovascular Exam: Present: regular rate, normal rhythm, normal heart sounds. Absent: systolic murmur, diastolic murmur, rubs, gallop, clicks GI/Abdominal exam: Present: soft, normal bowel sounds. Absent: distended, tenderness, guarding, rebound, rigid Neurological exam: Present: alert, oriented X3, CN II-XII intact Psychiatric exam: Present: depressed, anxious, suicidal ideation. Absent: homicidal ideation Skin exam: Present: warm, dry, intact, normal color. Absent: rash Course Vital Signs 12/12/20 20:10 Temperature 98.6 F Pulse Rate 105 H Respiratory 18 Rate Blood Pressure 160/79 O2 Sat by Pulse 95 Oximetry Medical Decision Making - Medical Decision Making 39-year-old male patient presents to the emergency department today for evalu ation of suicidal ideation. Patient's plan is to overdose on street drugs. Patient was cleared medically. Evaluated by emergency psychiatric services. He will be admitted to the hospital for detox and mental health treatment. He is agreeable this plan. My attending is Dr. Emanuel. Disposition Clinical Impression: Suicidal ideation, Polysubstance abuse Disposition: TRANSFER TO PSYCH HOSP/UNIT Condition: Serious Referrals: None,Stated [Primary Care Provider] - 1-2 days - Out of Hospital Transfer - Req. Specs Out of Hospital Transfer - Requested Specifics: Psychiatric Non-ICU ([facility])
[2020-12-12] MEDS ORDERED: LORazepam 1 MG TAB PO STA (22:50)
[2020-12-13 00:51] LABS: Amphetamine Screen,Urine Not Detected (NotDetected); Barbiturate Screen,Urine Not Detected (NotDetected); Benzodiazepines Screen,Urine Not Detected (NotDetected); Cocaine Screen,Urine Detected (NotDetected); Methadone Screen, Urine Not Detected (NotDetected); Opiate Screen,Urine Detected (NotDetected); Oxycodone Screen, Urine Not Detected (NotDetected); Phencyclidine Screen,Urine Not Detected (NotDetected); Tricyclic Antidepressant,Urine Not Detected (NotDetected); Urn Cannabinoid Scrn Not Detected (NotDetected)
[2020-12-13] MEDS ORDERED: MAGNESIUM HYDROXIDE 2,400 MG/10 ML CUP PO PRN (01:51)
[2020-12-13] MEDS ORDERED: MAG HYDROX/AL HYDROX/SIMETH 30 ML CUP PO PRN (01:51)
[2020-12-13] MEDS ORDERED: haloperidoL 5 MG TAB PO PRN (01:58)
[2020-12-13] MEDS ORDERED: HALOPERIDOL LACTATE 5 MG/ML 1 ML VIAL IM PRN (01:58)
[2020-12-13] MEDS ORDERED: ONDANSETRON 4 MG TAB PO PRN (02:00)
[2020-12-13] MEDS ORDERED: LOPERAMIDE 2 MG CAP PO PRN (02:01)
--- NOTE | 2020-12-13 04:02 | P.CONS ---
History of Present Illness - Reason for Consult Consult date: 12/13/20 medical eval Requesting physician: Richard Garcia - Chief Complaint medical eval - History of Present Illness 39-year-old male with polysubstance abuse and IV drug abuse Patient well-known to this unit this is his fourth visit over the past few months. This time he comes in with his brother as he found him and one of the abandoned houses in [place] so he brought him to the hospital for evaluation patient is known to have depression and IV drug abuse patient is homeless. He currently is sedated and medicated unable to provide any meaningful history However he does have a lump over his right neck due to IV drug abuse he currently denies any fevers chills chest pain or trouble breathing Review of Systems ROS unobtainable: due to mental status Past Medical History Additional Past Medical History / Comment(s): hep C History of Any Multi-Drug Resistant Organisms: None Reported Past Surgical History: Hernia Repair Past Psychological History: Anxiety, Depression Smoking Status: Current every day smoker Past Alcohol Use History: None Reported, Occasional Past Drug Use History: Cocaine, Heroin, Methamphetamine - Past Family History family Family Medical History: No Reported History Medications and Allergies Home Medications Medication Instructions Recorded Confirmed Type Nicotine 14Mg/24Hr Patch [Habitrol] 1 patch TOPICAL DAILY 11/12/20 12/12/20 History DULoxetine HCL [Cymbalta] 30 mg PO DAILY #30 capsule. 11/15/20 12/12/20 Rx OLANZapine [ZyPREXA] 5 mg PO HS #30 tab 11/15/20 12/12/20 Rx busPIRone HCl [Buspar] 10 mg PO BID #60 tab 11/15/20 12/12/20 Rx hydrOXYzine pamoate [Vistaril] 25 mg PO Q8HR PRN #90 cap 11/15/20 12/12/20 Rx Gabapentin [Neurontin] 100 mg PO TID 12/12/20 12/12/20 History Allergies Allergy/AdvReac Type Severity Reaction Status Date / Time vancomycin Allergy Rash/Hives/ Verified 12/12/20 20:09 Swelling Physical Exam Vitals: Vital Signs Temp Pulse Resp BP Pulse Ox 12/12/20 20:10 98.6 F 105 H 18 160/79 95 Intake and Output 12/12/20 12/12/20 12/13/20 14:59 22:59 06:59 Other: Weight 83.915 kg Limited exam due to patient mental status is currently very sedated I examined the lump over the right neck, felt like firm lump over the right anterior triangle of the neck attached to the skin mobile slightly tender no drainage erythematous with slight induration, the lump measures 2 x 2 centimeter. no open wounds or cuts no drainage no palpable lymph nodes there is similar fullness to the left anterior neck triangle to a lesser degree which is also an area where the patient uses to inject IV drugs No leg edema bilaterally no calf muscle tenderness Lungs clear to auscultation bilaterally no wheezes rhonchi or rales Cardiovascular capillary refill is immediate over bilateral fingers and toes, normal S1 and S2 regular rate and rhythm no murmurs gallops or rubs Results Labs: Abnormal Lab Results - Last 24 Hours (Table) 12/12/20 Range/Units 21:10 Urine Opiates Screen Detected H (NotDetected) Urine Cocaine Screen Detected H (NotDetected) Assessment and Plan Assessment: Polysubstance abuse IV drug abuse Lump over his right anterior triangle of the neck suspicious for cellulitis Patient recently admitted to the hospital with cellulitis of bilateral hand due to IV drug abuse We'll start the patient on Bactrim double strength twice a day Monitor for fever Follow-up labs Check blood culture depression homeless management per psych Thank you for allowing us to participate in the care of this patient. We will follow peripherally. Do not hesitate to contact us with questions. Someone can be reached from the [facility] hospitalist group at all hours of the day at [phone].
[2020-12-13] MEDS: NICOTINE 14MG/24HR PATCH TRANSDERM SCH (08:35)
[2020-12-13] MEDS: ACETAMINOPHEN TAB 325 MG TAB PO PRN ×3 (08:35→16:34)
[2020-12-13] MEDS: SULFAMETHOX-TMP 800-160MG 1 EACH TAB PO SCH ×2 (08:35→21:46)
[2020-12-13] MEDS: LORazepam 1 MG TAB PO PRN ×3 (08:37→21:47)
[2020-12-13] MEDS: FLUoxetine HCL 20 MG CAP PO SCH (13:27)
[2020-12-13] MEDS: busPIRone HCl 10 MG TAB PO SCH ×2 (13:27→21:47)
[2020-12-13] MEDS: cloNIDine HCL 0.1 MG TAB PO PRN (13:28)
[2020-12-13 16:52] LABS: Basophils % (A) 1 %; Eosinophils # (A) 0.2 k/uL (0-0.7); Eosinophils % (A) 5 %; HGB 13.9 gm/dL (13.0-17.5); Lymphocytes # (A) 1.6 k/uL (1.0-4.8); Lymphocytes % (A) 35 %; MCH 28.9 pg (25.0-35.0); MCHC 33.1 g/dL (31.0-37.0); MCV 87.3 fL (80.0-100.0); Mean Platelet Volume 6.4; Monocytes # (A) 0.4 k/uL (0-1.0); Monocytes % (A) 9 %; Neutrophils # (A) 2.3 k/uL (1.3-7.7); Neutrophils % (A) 49 %; Platelet Count 229 k/uL (150-450); RBC 4.82 m/uL (4.30-5.90); RDW 13.8 % (11.5-15.5); WBC 4.6 k/uL (3.8-10.6)
[2020-12-13 16:56] LABS: ALT 23 U/L (4-49); AST 29 U/L (17-59); African American GFR (CKD) >90 (>60 ml/min/1.73 sqM); Albumin 3.6 g/dL (3.5-5.0); Alkaline Phosphatase 53 U/L (38-126); Anion Gap 5 mmol/L; Blood Urea Nitrogen 13 mg/dL (9-20); Calcium 8.9 mg/dL (8.4-10.2); Carbon Dioxide 29 mmol/L (22-30); Chloride 104 mmol/L (98-107); Glucose 121 mg/dL (74-99); Non-African American GFR(CKD) >90 (>60 ml/min/1.73 sqM); Potassium 4.1 mmol/L (3.5-5.1); Sodium 138 mmol/L (137-145); Total Bilirubin 0.3 mg/dL (0.2-1.3); Total Protein 6.1 g/dL (6.3-8.2)
--- NOTE | 2020-12-13 17:10 | HP ---
HISTORY AND PHYSICAL DATE OF SERVICE: 12/13/2020 IDENTIFYING DATA: Donell Benítez is a male who is currently homeless, has a history of polysubstance abuse and bipolar disorder. HISTORY OF PRESENT ILLNESS: This patient was hospitalized several times within the past 2 months for psychiatric issues, including bipolar disorder and relapsing on polysubstances. The patient was recently discharged last month and apparently had been in rehab at [place]; however, had relapsed once again and then got kicked out. The patient's UDS was positive for cocaine and heroin. The patient was seen today by investment underwriter and agreeable to speak in the office. Patient appeared to be going through opiate withdrawal and appeared to be visibly ill and lethargic. He states that he is feeling anxious and depressed along with having suicidal thoughts for the past few days. He states that he has had poor sleep as well for the past 3 days. He claims that he was having an increase in his back pain and apparently "self-medicated with heroin." He states that he was kicked out of the [address] [place] [address] in November and has been homeless since. He states that his medications were not helping him and specifically pointed out the Cymbalta, which he was started on in his previous admission. He claims that he has been using heroin and crack cocaine. He also states that he has been using a "research chemical like methamphetamine." He states that his sleep has been poor and he has poor energy level. He claims that he is "sick of using drugs." At this time he is denying any suicidal or homicidal ideation, intent or plan. He is denying any auditory or visual hallucinations. MENTAL STATUS EXAM: The patient appears to be visibly ill and malnourished. He appears to be disheveled in appearance and lethargic. The patient has been attempting to cooperate with interview; however, he was irritable at times. Patient's speech is fluent and concrete. His thought process is logical and he is preoccupied with his medications and using drugs. He is denying any delusions or paranoia at this time. He is denying any auditory or visual hallucinations and denying any suicidal or homicidal ideations, intent or plan. He claims that his mood is "depressed" and is admitting to anxiety at this time. Affect is congruent. The patient's judgment and insight are poor/impulsive. He is alert and oriented x3 with fair concentration. PAST PSYCHIATRIC HISTORY: The patient has a reported history of bipolar disorder, depression and anxiety. He was previously on Lexapro, Cymbalta, Effexor. He has been hospitalized several times in the past 2 months, with his last psychiatric admission being in November 2020. The patient is following up with [facility] at this time. He denies any history of suicide attempts. PAST MEDICAL HISTORY: Hernia repair. FAMILY HISTORY: He claims that his father has depression. SOCIAL HISTORY: He states that he was born and raised in [place], [place], and also claims that he moved to [place]. He states that he completed high school and some college. He is currently homeless and is single and denying any legal history. Strengths: The patient does have access to health care and supportive family. Weaknesses: The patient has chronic mental illness and polysubstance abuse and is impulsive. IMPRESSION: 1. Major depressive disorder, recurrent, severe, without psychotic features. 2. Cocaine abuse. 3. Opioid dependence. 4. Nicotine dependence. PLAN: At this time the patient is admitted under voluntary status to the mental health unit for psychiatric treatment. The patient signed medication consent and voluntary form. Will start patient on Prozac 20 mg daily for mood/anxiety. Patient is also agreeable to start Zyprexa 5 mg at bedtime for mood stabilization/depression/insomnia. The patient also is agreeable to start BuSpar b.i.d. for anxiety. Started clonidine 0.1 mg t.i.d. p.r.n. for opioid withdrawal. Internal Medicine for history and physical exam. Counseled patient on substance abuse, and patient claims that he would like to either go to rehab at [place] versus going to [facility] upon discharge and stabilization. Encourage patient to attend groups and participate in milieu. Haldol and Ativan p.o. and IM p.r.n. for agitation/psychosis. MMSWATIL / ARELYN: [id number] /
[2020-12-13] MEDS ORDERED: OLANZapine 5 MG TAB PO SCH (21:00)
[2020-12-14] MEDS: SULFAMETHOX-TMP 800-160MG 1 EACH TAB PO SCH ×2 (08:25→20:36)
[2020-12-14] MEDS: busPIRone HCl 10 MG TAB PO SCH (08:25)
[2020-12-14] MEDS: FLUoxetine HCL 20 MG CAP PO SCH (08:25)
[2020-12-14] MEDS: NICOTINE 14MG/24HR PATCH TRANSDERM SCH (08:25)
[2020-12-14] MEDS: LORazepam 1 MG TAB PO PRN ×3 (08:27→22:53)
[2020-12-14] MEDS: GABAPENTIN 300 MG CAP PO SCH (09:35)
[2020-12-14] MEDS: cloNIDine HCL 0.1 MG TAB PO PRN (09:38)
--- NOTE | 2020-12-14 10:11 | P.PN ---
Progress Note - Text Progress Note Date: 12/14/20 Interval history: Patient was seen wandering the hallways and was directable and agreeable to s peak with development writer. Patient continues to appear to look like he is in mild distress secondary to withdrawal from polysubstances. He states that he was going to get clonidine from the medication window as he is feeling withdrawal symptoms. He states that he had a difficult time sleeping last night and requested to have his Zyprexa increased. He also states he is still having ongoing pain during the day and requested to be back on his gabapentin. He states that he has been trying to go to groups however is finding it difficult to concentrate due to his pain. He states that his mood has been mildly improving and is okay with having his Prozac increased for tomorrow. He states that he has poor appetite at this time. At this time patient denies any suicidal or homicidal ideations intent or plan. Denies any Auditory or visual hallucinations. Patient denies any side effects from the medications and has been compliant with meds. Mental status exam: General Appearance: Patient appears to be in mild distress secondary to withdrawal, stated age is alert, directable, and attempts to be cooperative. Poor hygiene and grooming Behavior: No agitated behavior. Patient is calm and directable Speech: Patient's speech is fluent and nonpressured. Mood/Affect: Mood is improving mildly, affect is congruent and constricted. Suicidality/Homicidality: Patient denies having any suicidal or homicidal ideation intent or plan. Perceptions: Patient denies any auditory or visual hallucinations. Though content/process: There is no evidence of any delusional thought content and thought process is linear and goal-directed. Focused on his medications. Memory and concentration: AOX3, grossly intact for the purposes of this session Judgment and insight: Poor Assessment/Plan: Continue with current diagnosis. Patient continues to meet criteria for inpatient psychiatric admission for symptom stabilization and safety. We will increase patient's Zyprexa to 7.5 mg daily at bedtime for mood stabilization. Will also increase patient's Prozac to 40 mg daily for tomorrow for anxiety/mood. MAPS was checked regarding patient's Neurontin and patient was previously prescribed 300 mg daily for 30 days back in early December. Will resume 300 mg daily for pain. BuSpar increased to 50 mg twice a day for anxiety. Monitor for medication compliance and for any psychotropic medication side effects. Will continue to monitor ongoing response to treatment. Encouraged participation in milieu.
[2020-12-14] MEDS: ACETAMINOPHEN TAB 325 MG TAB PO PRN (16:39)
[2020-12-14] MEDS: busPIRone HCl 5 MG TAB PO SCH (20:35)
[2020-12-14] MEDS: OLANZapine 7.5 MG TAB PO SCH (20:36)
[2020-12-15] MEDS: NICOTINE 14MG/24HR PATCH TRANSDERM SCH (07:46)
[2020-12-15] MEDS: busPIRone HCl 5 MG TAB PO SCH ×2 (07:46→20:21)
[2020-12-15] MEDS: GABAPENTIN 300 MG CAP PO SCH (07:46)
[2020-12-15] MEDS: FLUoxetine HCL 20 MG CAP PO SCH (07:47)
[2020-12-15] MEDS: SULFAMETHOX-TMP 800-160MG 1 EACH TAB PO SCH ×2 (07:47→20:21)
[2020-12-15] MEDS: LORazepam 1 MG TAB PO PRN ×3 (08:19→23:40)
[2020-12-15] MEDS: ACETAMINOPHEN TAB 325 MG TAB PO PRN ×2 (08:19→13:18)
[2020-12-15] MEDS: cloNIDine HCL 0.1 MG TAB PO PRN ×2 (13:17→20:21)
--- NOTE | 2020-12-15 14:55 | P.PN ---
Progress Note - Text Progress Note Date: 12/15/20 Clinical Problems: Unspecified depressive disorder, rule out major depressive disorder recurrent severe without psychotic features, rule out substance-induced mood disorder, cocaine use disorder severe, opiate use disorder severe, tobacco use Interim history: I reviewed the medical record and interviewed the patient. He is a 39-year-old male who was readmitted to the psychiatric unit with complaints of depression, hopelessness and relapse to heroin and cocaine. We discharged him on 11/16/2020 to [facility] for residential substance abuse treatment. He was dismissed from [facility] after he relapsed to heroin and cocaine. Today, we complains of fatigue, anxiety and mild opiate withdrawal symptoms. He is frequently requesting when necessary Ativan and i clonidine for opiate withdrawal symptoms. He frequently tends therapeutic groups and activities. He slept 7 hours last night. Mental status exam: He presented as a casually groomed 39-year-old male who is laying in bed. He made eye contact and appeared to attend to interview. He had a flat facial expression. He had marked psychomotor retardation but no abnormal involuntary movements. Her speech was not spontaneous and had decreased rate and rhythm. His affect was blunted. He denied suicidal ideation or wishes. He did not express ideas reference, paranoid ideation or delusions. His the was concrete but his associations were coherent and logical. He denied hallucinations did not appear to be responding to internal stimuli. Assessment: He continues to have signs and symptoms of opiate withdrawal. Plan: Continue inpatient treatment. Safety precautions. Continue current medic ations including BuSpar 50 mg twice a day, Catapres 0.1 mg every 8 hours when necessary for withdrawal, Prozac 40 mg daily, Neurontin 300 mg at bedtime, Ativan 1 mg 3 times a day when necessary for anxiety and her opiate withdrawal and Zyprexa 7.5 mg at bedtime. Zofran and Imodium when necessary for nausea and diarrhea. Haldol 5 mg IM/by mouth for agitation or acute psychosis. Encourage participation in therapeutic groups and activities. Evaluate clinical status response to treatment daily basis.
[2020-12-15] MEDS: OLANZapine 7.5 MG TAB PO SCH (20:22)
[2020-12-16] MEDS: busPIRone HCl 5 MG TAB PO SCH ×2 (08:16→21:17)
[2020-12-16] MEDS: FLUoxetine HCL 20 MG CAP PO SCH (08:16)
[2020-12-16] MEDS: NICOTINE 14MG/24HR PATCH TRANSDERM SCH (08:16)
[2020-12-16] MEDS: ACETAMINOPHEN TAB 325 MG TAB PO PRN ×2 (08:17→15:23)
[2020-12-16] MEDS: GABAPENTIN 300 MG CAP PO SCH (08:17)
[2020-12-16] MEDS: SULFAMETHOX-TMP 800-160MG 1 EACH TAB PO SCH ×2 (08:17→21:17)
[2020-12-16] MEDS: LORazepam 1 MG TAB PO PRN ×3 (08:18→22:30)
[2020-12-16] MEDS: cloNIDine HCL 0.1 MG TAB PO PRN ×2 (09:35→16:47)
--- NOTE | 2020-12-16 12:25 | P.PN ---
Progress Note - Text Progress Note Date: 12/16/20 Clinical Problems: Unspecified depressive disorder, rule out major depressive disorder recurrent severe without psychotic features, rule out substance-induced mood disorder, cocaine use disorder severe, opiate use disorder severe, tobacco use Interim history: I reviewed the medical record and interviewed the patient. He was uncooperative today. He would not answer questions or make eye contact. He is frequently requesting Ativan and clonidine for complaints of opiate withdrawal. He does not attend therapeutic groups and activities. He slept 4 hours last night. Mental status exam: He presented as a casually groomed 39-year-old male who is laying in bed. He did not make eye contact. He hit his face under his blanket. He had marked psychomotor retardation but no abnormal involuntary movements. He would not speak. His affect was blunted. He did not appear to be responding to internal stimuli. Assessment: He continues to have signs and symptoms of opiate withdrawal. Plan: Continue inpatient treatment. Safety precautions. Continue current medications including BuSpar 50 mg twice a day, Catapres 0.1 mg every 8 hours when necessary for withdrawal, Prozac 40 mg daily, Neurontin 300 mg at bedtime, Ativan 1 mg 3 times a day when necessary for anxiety and her opiate withdrawal and Zyprexa 7.5 mg at bedtime. Zofran and Imodium when necessary for nausea and diarrhea. Haldol 5 mg IM/by mouth for agitation or acute psychosis. Encourage participation in therapeutic groups and activities. Evaluate clinical status response to treatment daily basis.
[2020-12-16] MEDS: OLANZapine 7.5 MG TAB PO SCH (21:17)
[2020-12-17] MEDS: LORazepam 1 MG TAB PO PRN (07:12)
[2020-12-17] MEDS: cloNIDine HCL 0.1 MG TAB PO PRN (07:12)
[2020-12-17] MEDS: ACETAMINOPHEN TAB 325 MG TAB PO PRN (07:12)
[2020-12-17 07:16] VITALS: BP 136/75; PULSE 115; RESP 18; TEMP 98.4
[2020-12-17] MEDS: FLUoxetine HCL 20 MG CAP PO SCH (08:10)
[2020-12-17] MEDS: NICOTINE 14MG/24HR PATCH TRANSDERM SCH (08:10)
[2020-12-17] MEDS: GABAPENTIN 300 MG CAP PO SCH (08:10)
[2020-12-17] MEDS: SULFAMETHOX-TMP 800-160MG 1 EACH TAB PO SCH (08:10)
[2020-12-17] MEDS: busPIRone HCl 5 MG TAB PO SCH (08:11)
--- NOTE | 2020-12-17 13:36 | P.DS ---
Providers Date of admission: 12/13/20 01:50 Attending physician: Richard Garcia MD Primary care physician: Stated None - Discharge Diagnosis(es) (1) Substance induced mood disorder Status: Acute Priority: Medium (2) Cocaine use disorder, severe, dependence Status: Chronic Priority: High (3) Opioid use disorder, severe, dependence Status: Chronic Priority: High (4) Tobacco use Status: Chronic Priority: Medium Hospital Course: HISTORY: Obesity 39-year-old male readmitted to the psychiatric unit with complaints of depression, suicidal ideation and relapse to cocaine and heroin. We discharged him for unit on 11/16/2020 with a referral for residential substance abuse treatment at [facility] on . He was dismissed from the program after he relapsed to both cocaine and heroin while he was in the program. His urine drug screen on admission was positive for opiates and cocaine. HOSPITAL COURSE: We admitted him voluntarily to the psychiatric unit under care of this consumer loan underwriter. We provided a comprehensive biopsychosocial assessment. The environmental consultant charge master specialist completed initial physical exam and medical history and diagnosed a possible cellulitis of the right anterior triangle of the neck and of both hands that were likely due to IV injection. The hospitalist started him on Bactrim DS twice a day for the treatment of the cellulitis. We treated his opiate withdrawal symptoms with a combination of Ativan when necessary, Catapres 0.5 mg every 8 when necessary, Zofran and Imodium. We treated his mood symptoms with combination of Prozac 20 mg daily and Zyprexa 5 mg at bedtime. We prescribed BuSpar for treatment of his anxiety and potentially a titrated dose to 20 mg twice a day. He claimed complained of opiate withdrawal symptoms throughout much of this hospitalization. He did not participate in therapeutic groups and activities. He spends time in bed coming out for medications or meals. He posed no management problem and had no episodes of behavioral dyscontrol. He agreed to resume outpatient treatment and arrange for an intake assessment into a methadone maintenance program. MENTAL STATUS ON DISCHARGE: At time of discharge he presented as a disheveled appearing 39-year-old male who was alert and cooperative. He made eye contact and appeared to attend to the interview. He had a flat facial expression. He was alert and oriented to person, place and time. He had psychomotor retardation but no abnormal involuntary movements. Her speech was not spontaneous and had decreased rate and rhythm. His affect was flat. He denied suicidal ideation and wishes. He denied homicidal ideation. He did not express feelings of hopelessness, helplessness or worthlessness. He did not express ideas reference, paranoid ideation or delusions. His thinking was concrete. Associations were coherent, logical and goal directed. He denied hallucinations and did not appear to be responding to internal stimuli. DISPOSITION: He is discharged was former address. His discharge medications include Habitrol 1 patch daily for smoking cessation, gabapentin 300 mg daily, Prozac 40 mg daily, Zyprexa 7.5 mg at bedtime, BuSpar 10 mg twice a day, Habitrol 14 mg every 24 hours for smoking cessation, He has an appointment scheduled with [facility] for methadone treatment on 11/19/2020. Patient Condition at Discharge: Serious Plan - Discharge Summary Discharge Rx Participant: No New Discharge Prescriptions: New Gabapentin [Neurontin] 300 mg PO DAILY #30 cap FLUoxetine HCL [PROzac] 40 mg PO DAILY #60 cap OLANZapine [ZyPREXA] 7.5 mg PO HS #30 tab Continue Nicotine 14Mg/24Hr Patch [Habitrol] 1 patch TOPICAL DAILY busPIRone HCl [Buspar] 10 mg PO BID #60 tab Discontinued DULoxetine HCL [Cymbalta] 30 mg PO DAILY #30 capsule. hydrOXYzine pamoate [Vistaril] 25 mg PO Q8HR PRN #90 cap PRN Reason: Anxiety OLANZapine [ZyPREXA] 5 mg PO HS #30 tab Gabapentin [Neurontin] 100 mg PO TID Discharge Medication List Nicotine 14Mg/24Hr Patch [Habitrol] 1 patch TOPICAL DAILY 11/12/20 [History] FLUoxetine HCL [PROzac] 40 mg PO DAILY #60 cap 12/17/20 [Rx] Gabapentin [Neurontin] 300 mg PO DAILY #30 cap 12/17/20 [Rx] OLANZapine [ZyPREXA] 7.5 mg PO HS #30 tab 12/17/20 [Rx] busPIRone HCl [Buspar] 10 mg PO BID #60 tab 12/17/20 [Rx] Follow up Appointment(s)/Referral(s): Rehab, [facility] [Other] - 12/18/20 10:00 am (Intake) [facility] [NON-STAFF] - 1 Week Patient Instructions/Handouts: How to Stop Smoking (DC), Depression (DC), Opioid Use Disorder (DC) Activity/Diet/Wound Care/Special Instructions: Activity and diet as tolerated. Avoid the use of street drugs and alcohol. Take all medications as prescribed. When you are in need of refills on your medications please contact your medical provider and/or outpatient psychiatrist to have this done. Please go to scheduled outpatient appointment for aftercare treatment. If symptoms return or become worse, call the crisis line at and/or go to the nearest emergency room for evaluation. Discharge Disposition: HOME SELF-CARE
== END 2020-12-17 12:22 | disposition home or self-care (01) | DRG 897 ==
LOC: EC 20:05 → 3MHU 12-13 01:50
PROVIDERS: ADMIT Psychiatry & Neurology Psychiatry; ATTEND Psychiatry & Neurology Psychiatry
DX: F19.94 Other psychoactive substance use, unspecified with psychoactive substance-induced mood disorder (principal); R45.851 Suicidal ideations; L03.221 Cellulitis of neck; F14.20 Cocaine dependence, uncomplicated; F11.23 Opioid dependence with withdrawal; Z20.822 Contact with and (suspected) exposure to COVID-19; B19.20 Unspecified viral hepatitis C without hepatic coma; F41.9 Anxiety disorder, unspecified; G47.00 Insomnia, unspecified; M54.9 Dorsalgia, unspecified; R45.87 Impulsiveness; E66.9 Obesity, unspecified; Z68.26 Body mass index [BMI] 26.0-26.9, adult; F17.210 Nicotine dependence, cigarettes, uncomplicated; Z71.6 Tobacco abuse counseling; Z59.0 Homelessness; Z79.899 Other long term (current) drug therapy; Z87.19 Personal history of other diseases of the digestive system; Z98.890 Other specified postprocedural states; Z88.1 Allergy status to other antibiotic agents; Z81.8 Family history of other mental and behavioral disorders
CPT/HCPCS: 80053; 80306; 82075; 84443; 85025; 87040; 87635; 99285

== ENCOUNTER 2021-02-18 10:51 | Inpatient (IN) | payer MEDICAID, OTHER ==
--- NOTE | 2021-02-18 11:52 | ED ---
General Adult HPI - General Chief complaint: Psychiatric Symptoms Stated complaint: EPS eval Time Seen by Provider: 02/18/21 11:03 Source: patient, RN notes reviewed, old records reviewed Mode of arrival: wheelchair Limitations: no limitations - History of Present Illness Initial comments: 40-year-old male presenting for evaluation of depression and suicidal ideation. She states he plans to use a knife. He states he does have history of mental illness including bipolar depression. He denies alcohol use. He states he is currently homeless. He denies a suicidal attempt. Denies physical complaint. - Related Data Home Medications Medication Instructions Recorded Confirmed Gabapentin 600 mg PO TID 02/18/21 02/18/21 OLANZapine [OLANZapine Odt] 15 mg PO HS 02/18/21 02/18/21 buPROPion XL [Wellbutrin Xl] 150 mg PO DAILY 02/18/21 02/18/21 busPIRone HCL 15 mg PO TID 02/18/21 02/18/21 Allergies Allergy/AdvReac Type Severity Reaction Status Date / Time vancomycin Allergy Rash/Hives/ Verified 02/18/21 11:02 Swelling Review of Systems ROS Statement: Those systems with pertinent positive or pertinent negative responses have been documented in the HPI. ROS Other: All systems not noted in ROS Statement are negative. Past Medical History Additional Past Medical History / Comment(s): hep C History of Any Multi-Drug Resistant Organisms: None Reported Past Surgical History: Hernia Repair Past Psychological History: Anxiety, Depression Smoking Status: Current every day smoker Past Alcohol Use History: None Reported, Occasional Past Drug Use History: Cocaine, Heroin, Methamphetamine - Past Family History family Family Medical History: No Reported History Additional Family Medical History / Comment(s): hx of scioliosis General Exam Limitations: no limitations General appearance: alert, in no apparent distress Head exam: Present: atraumatic, normocephalic Eye exam: Present: normal appearance, PERRL ENT exam: Present: normal exam Neck exam: Present: normal inspection. Absent: tenderness, meningismus Respiratory exam: Present: normal lung sounds bilaterally. Absent: respiratory distress, wheezes Cardiovascular Exam: Present: regular rate, normal rhythm GI/Abdominal exam: Present: soft. Absent: distended, tenderness, guarding Extremities exam: Present: other (Erythema, soft tissue swelling of bilateral hands) Neurological exam: Present: alert. Absent: motor sensory deficit Psychiatric exam: Present: depressed, flat affect, suicidal ideation Skin exam: Present: warm, dry Course Vital Signs 02/18/21 11:00 Temperature 97.5 F L Pulse Rate 99 Respiratory 18 Rate Blood Pressure 122/82 O2 Sat by Pulse 94 L Oximetry - Reevaluation(s) Reevaluation #1: 02/18/21 1500 Patient awaiting EPS and mobile crisis evaluation. Case signed out to Dr. Anna at shift change. Medical Decision Making - Medical Decision Making Patient has been evaluated by EPS, will be admitted to this institution for further psychiatric evaluation and treatment. He has signed himself in. Disposition Clinical Impression: Suicidal ideation, Lack of housing, Depression Disposition: ADMITTED IP TO THIS [facility] Condition: Stable Is patient prescribed a controlled substance at d/c from ED?: No Referrals: None,Stated [Primary Care Provider] - 1-2 days Decision to Admit Reason: Admit from EC Decision Date: 02/18/21 Decision Time: 15:13
[2021-02-18] MEDS ORDERED: MAGNESIUM HYDROXIDE 2,400 MG/10 ML CUP PO PRN (18:18)
[2021-02-18] MEDS ORDERED: ACETAMINOPHEN TAB 325 MG TAB PO PRN (18:18)
[2021-02-18] MEDS ORDERED: MAG HYDROX/AL HYDROX/SIMETH 30 ML CUP PO PRN (18:18)
[2021-02-18] MEDS ORDERED: LORazepam 2 MG/ML INJ IM PRN (18:19)
[2021-02-18] MEDS ORDERED: HALOPERIDOL LACTATE 5 MG/ML 1 ML VIAL IM PRN (18:19)
[2021-02-18] MEDS ORDERED: haloperidoL 5 MG TAB PO PRN (18:19)
[2021-02-18] MEDS: OLANZapine ODT 5 MG TAB PO SCH (20:57)
[2021-02-18] MEDS: LORazepam 1 MG TAB PO PRN (20:58)
[2021-02-19] MEDS: NICOTINE 14MG/24HR PATCH TRANSDERM SCH ×2 (01:45→08:17)
--- NOTE | 2021-02-19 05:02 | P.MDCNMH ---
History of Present Illness H&P Date: 02/19/21 Chief Complaint: Medical evaluation 40-year-old male with bipolar disorder, history of IV drug abuse Comes in due to suicidal ideation and depression he was planning on cutting himself with a knife. He currently denies any medical concerns or any physical complaints except for some discomfort in his bilateral calf muscles however he is homeless and he's been walking a lot. He denies any recent traveling or trauma to his legs. He denies any recent history of immobility he denies any history of blood clots. He denies any swelling in his bilateral calf muscles or any warmth or or erythema. Otherwise patient denies any fevers or chills denies any nausea vomiting denies any abdominal pain denies any chest pain or trouble breathing denies any GI bleeding Review of Systems Pertinent positives as noted in HPI. All other systems were reviewed and are negative Past Medical History Past Medical History: No Reported History Additional Past Medical History / Comment(s): hep C per previous admission History of Any Multi-Drug Resistant Organisms: None Reported Past Surgical History: Hernia Repair Past Anesthesia/Blood Transfusion Reactions: No Reported Reaction Past Psychological History: Anxiety, Depression Smoking Status: Current every day smoker Past Alcohol Use History: None Reported Past Drug Use History: Cocaine, Heroin - Past Family History family Family Medical History: No Reported History Additional Family Medical History / Comment(s): hx of scioliosis Medications and Allergies Home Medications Medication Instructions Recorded Confirmed Type Gabapentin 600 mg PO TID 02/18/21 02/18/21 History OLANZapine [OLANZapine Odt] 15 mg PO HS 02/18/21 02/18/21 History buPROPion XL [Wellbutrin Xl] 150 mg PO DAILY 02/18/21 02/18/21 History busPIRone HCL 15 mg PO TID 02/18/21 02/18/21 History Allergies Allergy/AdvReac Type Severity Reaction Status Date / Time vancomycin Allergy Rash/Hives/ Verified 02/18/21 11:02 Swelling Physical Exam Vitals: Vital Signs Temp Pulse Pulse Resp BP BP Pulse Ox 02/18/21 19:52 97.6 F 86 14 139/88 98 02/18/21 18:25 97.5 F L 96 18 122/82 94 L 02/18/21 11:00 97.5 F L 99 18 122/82 94 L Intake and Output 0402/18/21 02/19/21 14:59 22:59 06:59 Other: Weight 81.647 kg 87.543 kg Constitutional: No acute distress, conversant, pleasant Eyes: Anicteric sclerae, moist conjunctiva, Pupils equal round reactive to light ENMT: NC/AT Oropharynx clear, no erythema, or exudates Neck: Supple, FROM, no masses, or JVD No carotid bruits No thyromegaly Lungs: Clear to auscultation Clear to percussion Normal respiratory effort, no accessory muscle use Cardiovascular: Heart regular in rate and rhythm, No murmurs, gallops, or rubs No peripheral edema Abdominal: Soft Nontender, no guarding, rebound or rigidity Abdomen moving with respiration Normoactive bowel sounds No hepatomegaly, No splenomegaly No palpable mass No abdominal wall hernia noted Skin: Normal temperature, tone, texture, turgor No induration No subcutaneous nodules No rash, lesions No ulcers Extremities: No digital cyanosis No clubbing Pedal pulses intact and symmetrical Radial pulses intact and symmetrical No calf tenderness , Sofi sign negative, no swelling nor erythema no warmth to touch over bilateral calf muscles Psychiatric: Alert and oriented to person, place and time Avoiding eye contact Neuro Muscles Strength 5/5 in all 4 extremities Sensation to light touch grossly present throughout Cranial nerves II-XII grossly intact No focal sensory deficits Lymphatics: no palpable cervical or supraclavicular , or inguinal lymph nodes Cranial Nerve Examination - Cranial Nerves Cranial Nerve II- Optic: Intact Cranial Nerve III- Oculomotor: Intact Cranial Nerve IV- Trochlear: Intact Cranial Nerve V- Trigeminal: Intact Cranial Nerve - Abducens: Intact Cranial Nerve VII- Facial: Intact Cranial Nerve VIII- Auditory: Intact Cranial Nerve IX- Glossopharyngeal: Intact Cranial Nerve X- Vagus: Intact Cranial Nerve XI- Accessory: Intact Cranial Nerve XII- Hypoglossal: Intact Assessment and Plan Assessment: Depression suicidal ideation Management per psych History of IV drug abuse Currently denying any active use Complaint of bilateral calf muscle pain most likely due to excessive walking patient is homeless Check d-dimer and if positive we'll check bilateral ultrasound of the legs to rule out DVTs however it is unlikely based on the physical exam Follow-up labs Thank you for allowing us to participate in the care of this patient. We will follow peripherally. Do not hesitate to contact us with questions. Someone can be reached from the [facility] hospitalist group at all hours of the day at [phone].
[2021-02-19] MEDS: LORazepam 1 MG TAB PO PRN ×3 (08:19→21:25)
[2021-02-19] MEDS ORDERED: buPROPion XL 150 MG TAB.ER.24H PO SCH (09:00)
--- NOTE | 2021-02-19 11:25 | P.HP ---
Psychiatric H&P - . H&P Date: 02/19/21 History & Physical: Allergies Allergy/AdvReac Type Severity Reaction Status Date / Time vancomycin Allergy Rash/Hives/ Verified 02/18/21 11:02 Swelling Vital Signs Temp 98.0 F 02/19/21 06:53 Pulse 94 02/19/21 08:15 Resp 18 02/19/21 06:53 BP 139/79 02/19/21 08:15 Pulse Ox 98 02/19/21 06:53 Intake & Output 02/18/21 02/19/21 02/19/21 18:59 06:59 18:59 Weight 81.647 kg 87.543 kg Laboratory Last Values Coronavirus (PCR) Not Detected (Not Detectd) 02/18/21 16:23 02/19/21 11:13 IDENTIFYING DATA: Patient is a single, unemployed, homeless, male with a significant history of polysubstance abuse and bipolar disorder who was admitted for suicidal ideation. HPI: Patient presented to the hospital on 02/19/2021 with a chief complaint of suicidal ideation with a plan to cut himself with a knife. The patient reports that over the past weekend, he was staying at a [facility] house was kicked out due to using crack cocaine and drinking alcohol. He reports that since then he has been homeless. He states that once he was kicked out, he went on a nicole and ended up drinking more alcohol. He reports drinking up to a fifth of liquor shortly after waking up on a slab of pavement after being kicked out of the home. He reports then he became very suicidal with thoughts of hurting himself and cutting himself. Currently, the patient is not reporting any suicidal or homicidal ideation, intention, and/or plan. He reports that his primary struggle is with his substance abuse. He states that he has been adherent with his medications and feels like he is on a good regimen of gabapentin, Wellbutrin, BuSpar, and Zyprexa. He denies any significant symptoms of bipolar disorder. He is not reporting any increased goal-directed activity, mood swings, impulsivity, pressured speech, or grandiosity. He denies any auditory or visual hallucinations. He denies any paranoia or other delusions. The patient states that he really wants to be sober but continues to struggle with maintaining sobriety. He expresses that prior to this episode he was sober for 1-1/2 months. Since his relapse began when he started using some Fioricet from a another tenant at the [facility]. PAST PSYCHIATRIC HISTORY: Patient states that he has been previously diagnosed with bipolar disorder, depression, and anxiety. He also has polysubstance use disorder.. He is currently on a home regimen of Wellbutrin, BuSpar, Zyprexa, and gabapentin. Previous trials of medications include Lexapro, Cymbalta, and Effexor. The patient has had multiple inpatient psychiatric hospitalizations; with this one being the fourth admission onto this unit since October 2020. She was discharged with follow-up with the [facility]. Patient denies any history of suicide attempts in the past. PMH: Past Medical History: No Reported History Additional Past Medical History / Comment(s): hep C per previous admission History of Any Multi-Drug Resistant Organisms: None Reported Past Surgical History: Hernia Repair Past Anesthesia/Blood Transfusion Reactions: No Reported Reaction Past Psychological History: Anxiety, Depression Smoking Status: Current every day smoker Past Alcohol Use History: None Reported Past Drug Use History: Cocaine, Heroin ALLERGIES: Vancomycin CHEMICAL DEPENDENCY HISTORY: Patient admits to recent crack cocaine use (approximately 2-3 days ago), heavy alcohol use, and he has a history of IV heroin abuse. The patient is currently on the injectable form of Suboxone. He received his last injection approximately a week and a half ago. FAMILY PSYCHIATRIC/SUBSTANCE USE HISTORY: Patient was that his father has been diagnosed with depression. SOCIAL HISTORY: Patient was born and raised in [place], [place]. He is currently homeless after being kicked out of the [facility] due to drug use. His previous [facility] was in [place], [place]. He is currently employed for a [employer] company based out of [place], [place]. He is single without any children. He completed high school and has some college. MENTAL STATUS EXAM: General Appearance: Patient appears to be stated age is alert, directable, and attempts to cooperate. Patient appears to have poor hygiene and grooming. Patient appears disheveled. Behavior: Patient is seated without any agitated behavior. Slightly lethargic. Good eye contact. Speech: Patient's speech is fluent and nonpressured. Spontaneous, slightly slurred, low in volume. Mood/Affect: Patient reports their mood is depressed, affect is congruent and withdrawn. Suicidality/Homicidality: Patient denies having any homicidal ideation intent or plan. Denies any current suicidal ideations intent or plan Perceptions: Patient denies any visual hallucinations and denies any auditory hallucinations. Though content/process: There is no evidence of any delusional thought content and thought process is linear and goal-directed. Memory and concentration: AOX3, grossly intact for the purposes of this session. Can spell "WORLD" backwards Judgment and insight: poor STRENGTHS/WEAKNESSES: Strength is that patient is future oriented and wishing to see substance abuse help. Weakness is that patient engages in polysubstance abuse and is impulsive. INTELLECT: average IMPRESSIONS: Major depressive disorder, recurrent, severe Polysubstance abuse - cocaine, opioid, alcohol Nicotine dependence PLAN: -Patient is admitted under voluntary status to [facility] for stabilization of psychiatric symptoms and safety. Patient signed adult voluntary form and medication consent and is placed in patient's chart. -Medications : Gabapentin 300 mg by mouth 3 times a day for anxiety/off label use for alcohol use disorder Zyprexa 15 mg by mouth at bedtime for mood augmentation Increase Wellbutrin to 300 mg by mouth daily for depression -Ativan and Haldol PRN for agitation/aggression -Patient was counselled on substance abuse and desired to cut back on use -Patient was informed of the risks, benefits and side effects of the medication and patient verbally consented to taking the medications. Patient signed med consent form and was placed in chart. -Internal Medicine consult to perform medical evaluation and physical. -NRT - nicotine patch -SW on board for discharge planning. Encourage patient to participate in groups to work on coping skills.
[2021-02-19] MEDS: GABAPENTIN 300 MG CAP PO SCH ×2 (15:32→21:24)
[2021-02-19] MEDS: OLANZapine ODT 5 MG TAB PO SCH (21:24)
[2021-02-20] MEDS: NICOTINE 14MG/24HR PATCH TRANSDERM SCH (08:01)
[2021-02-20] MEDS: GABAPENTIN 300 MG CAP PO SCH (08:01)
[2021-02-20] MEDS: buPROPion XL 300 MG TAB.ER.24H PO SCH (08:01)
[2021-02-20] MEDS: LORazepam 1 MG TAB PO PRN ×3 (08:01→22:31)
--- NOTE | 2021-02-20 10:21 | P.PN ---
Progress Note - Text Progress Note Date: 02/20/21 Interval History: Patient was seen attending group and was directable and agreeable to speak with science writer in the office. Patient reports that he is feeling better. He states that he was able to sleep last night but was experiencing some odd dreams and nightmares. He is currently not reporting any suicidal or homicidal ideation, intention, and/or plan. He is not reporting auditory or visualizations. He is denying any paranoia or other delusions. He has been in here with his medications and does not report any significant side effects at this time. He does continue to endorse some elevated anxiety. The patient states that he thinks that he needs to go straight to [place] from this in inpatient psychiatric unit. When informed if this is not possible, the provider asked the patient where he would be going. The patient responds that he is not sure and expresses concern that if he was to be discharged into the community that he may have difficulty with his addiction and with his mood. Mental Status Exam: General Appearance: Patient appears to be stated age is alert, directable, and cooperative. The patient continues to appear somewhat disheveled with poor hygiene and grooming. Behavior: Patient is calmly seated without any agitated behavior. Less lethargic today. Good eye contact. Speech: Patient's speech is fluent and nonpressured. Spontaneous with normal rate, tone, and volume. Mood/Affect: Mood is improving mildly, affect is congruent and constricted. Suicidality/Homicidality: Patient denies having any suicidal or homicidal ideation intent or plan. Perceptions: Patient denies any visual hallucinations and denies any auditory soto llucinations Though content/process: There is no evidence of any delusional thought content and thought process is linear and goal-directed. Memory and concentration: AOX3, grossly intact for the purposes of this session Judgment and insight: Improving mildly Assessment Major depressive disorder, recurrent, severe Polysubstance abuse - cocaine, opioid, alcohol Nicotine dependence Plan: -Patient continues to meet criteria for inpatient psychiatric admission for symptom stabilization and safety. Patient has signed adult voluntary form and medication consent and was placed in patient's chart. -Medications: Increase gabapentin to 400 mg by mouth 3 times a day for anxiety/overt abuse from alcohol use disorder Continue Zyprexa 15 mg by mouth at bedtime for mood augmentation Continue Wellbutrin 300 mg by mouth daily for depression -Patient states that he'll call the access number for [place]. -When necessary Ativan and Haldol for agitation/aggression. -NRT - nicotine patch -SW on board for discharge planning. Encouraged the patient to participate in milieu.
[2021-02-20] MEDS: GABAPENTIN 400 MG CAP PO SCH ×2 (15:34→20:59)
[2021-02-20] MEDS: OLANZapine ODT 5 MG TAB PO SCH (20:58)
[2021-02-21] MEDS: NICOTINE 14MG/24HR PATCH TRANSDERM SCH (08:15)
[2021-02-21] MEDS: buPROPion XL 300 MG TAB.ER.24H PO SCH (08:16)
[2021-02-21] MEDS: LORazepam 1 MG TAB PO PRN ×3 (08:17→23:06)
[2021-02-21] MEDS: GABAPENTIN 400 MG CAP PO SCH (08:17)
--- NOTE | 2021-02-21 10:57 | P.PN ---
Progress Note - Text Progress Note Date: 02/21/21 Interval History: Patient was seen wandering the halls and was directable and agreeable to speak with typewriter mechanic in the office. The patient is reporting his feeling significantly better on his medication regimen. He is not reporting any suicidal or homicidal ideation, intention, and/or plan. He is not reporting any auditory or visual hallucinations. He states he must go to rehabilitation for his substance abuse shortly after discharge. He is denying any issues with sleep or appetite. He denies any side effects of his medications and has been adherent. Prior to this admission, patient was receiving gabapentin 600 mg 3 times a day and the patient is wondering if he can go back to his home dose. He is not reporting any paranoia or other delusions. He reports strong desire to return to work as well. Mental Status Exam: General Appearance: Patient appears to be stated age is alert, directable, and cooperative. Improved hygiene and grooming. Behavior: Patient is calmly seated without any agitated behavior. Good eye contact. Speech: Patient's speech is fluent and nonpressured. Spontaneous with normal rate, tone, and volume. Mood/Affect: Mood is improving mildly, affect is congruent and constricted. Suicidality/Homicidality: Patient denies having any suicidal or homicidal ideation intent or plan. Perceptions: Patient denies any visual hallucinations and denies any auditory hallucinations Though content/process: There is no evidence of any delusional thought content and thought process is linear and goal-directed. Memory and concentration: AOX3, grossly intact for the purposes of this session Judgment and insight: Improving mildly Assessment Major depressive disorder, recurrent, severe Polysubstance abuse - cocaine, opioid, alcohol Nicotine dependence Plan: -Patient continues to meet criteria for inpatient psychiatric admission for sym ptom stabilization and safety. Patient has signed adult voluntary form and medication consent and was placed in patient's chart. -Medications: Increase gabapentin to 600 mg by mouth 3 times a day for anxiety/off label use for alcohol use disorder Continue Zyprexa 15 mg by mouth at bedtime for mood augmentation Continue Wellbutrin 300 mg by mouth daily for depression -Patient states that he'll call the access number for [place]. -When necessary Ativan and Haldol for agitation/aggression. -NRT - nicotine patch -SW on board for discharge planning. Encouraged the patient to participate in [facility].
[2021-02-21] MEDS ORDERED: LORazepam 1 MG TAB PO STA (12:54)
[2021-02-21] MEDS: NEOMYCIN-BACITRACIN-POLY OINT 14 GM TUBE TOPICAL SCH ×2 (13:27→20:55)
[2021-02-21] MEDS: GABAPENTIN 300 MG CAP PO SCH ×2 (15:12→20:57)
[2021-02-21 17:55] LABS: Amphetamine Screen,Urine Not Detected (NotDetected); Barbiturate Screen,Urine Not Detected (NotDetected); Benzodiazepines Screen,Urine Detected (NotDetected); Cocaine Screen,Urine Not Detected (NotDetected); Methadone Screen, Urine Not Detected (NotDetected); Opiate Screen,Urine Not Detected (NotDetected); Oxycodone Screen, Urine Not Detected (NotDetected); Phencyclidine Screen,Urine Not Detected (NotDetected); Tricyclic Antidepressant,Urine Not Detected (NotDetected); Urn Cannabinoid Scrn Not Detected (NotDetected)
[2021-02-21] MEDS: OLANZapine ODT 5 MG TAB PO SCH (20:55)
[2021-02-22 06:33] VITALS: BP 121/77; PULSE 92; RESP 16; TEMP 97.7
[2021-02-22] MEDS: GABAPENTIN 300 MG CAP PO SCH (07:46)
[2021-02-22] MEDS: buPROPion XL 300 MG TAB.ER.24H PO SCH (07:47)
[2021-02-22] MEDS: LORazepam 1 MG TAB PO PRN (07:47)
[2021-02-22] MEDS: NICOTINE 14MG/24HR PATCH TRANSDERM SCH (07:47)
[2021-02-22] MEDS: NEOMYCIN-BACITRACIN-POLY OINT 14 GM TUBE TOPICAL SCH (08:09)
--- NOTE | 2021-02-22 11:36 | P.DS ---
Providers Date of admission: 02/18/21 18:00 Expected date of discharge: 02/22/21 Attending physician: Miquel Delgado MD Consults: 02/18/21 18:18 Consult Physician Routine Consulting Provider: Zachariah Enriquez Consult Reason/Comments: H&P and medical Do you want consulting provider notified?: Yes Primary care physician: Stated None - Discharge Diagnosis(es) (1) Major depressive disorder Current Visit: Yes Status: Acute Priority: High (2) Alcohol abuse Current Visit: Yes Status: Chronic Priority: Medium (3) Cocaine abuse Current Visit: Yes Status: Chronic Priority: Medium (4) Opioid dependence on agonist therapy Current Visit: Yes Status: Chronic Priority: Medium (5) Tobacco use Current Visit: Yes Status: Chronic Priority: Medium Hospital Course: Admission HPI: Patient is a single, unemployed, homeless, male with a significant history of polysubstance abuse and bipolar disorder who was admitted for suicidal ideation. Patient presented to the hospital on 02/19/2021 with a chief complaint of suicidal ideation with a plan to cut himself with a knife. The patient reports that over the past weekend, he was staying at a [facility] house was kicked out due to using crack cocaine and drinking alcohol. He reports that since then he has been homeless. He states that once he was kicked out, he went on a nicole and ended up drinking more alcohol. He reports drinking up to a fifth of liquor shortly after waking up on a slab of pavement after being kicked out of the home. He reports then he became very suicidal with thoughts of hurting himself and cutting himself. Currently, the patient is not reporting any suicidal or homicidal ideation, intention, and/or plan. He reports that his primary struggle is with his substance abuse. He states that he has been adherent with his medications and feels like he is on a good regimen of gabapentin, Wellbutrin, BuSpar, and Zyprexa. He denies any significant symptoms of bipolar disorder. He is not reporting any increased goal-directed activity, mood swings, impulsivity, pressured speech, or grandiosity. He denies any auditory or visual hallucinations. He denies any paranoia or other delusions. The patient states that he really wants to be sober but continues to struggle with maintaining sobriety. He expresses that prior to this episode he was sober for 1-1/2 months. Since his relapse began when he started using some Fioricet from a another tenant at the [facility]. Patient states that he has been previously diagnosed with bipolar disorder, depression, and anxiety. He also has polysubstance use disorder.. He is currently on a home regimen of Wellbutrin, BuSpar, Zyprexa, and gabapentin. Previous trials of medications include Lexapro, Cymbalta, and Effexor. The patient has had multiple inpatient psychiatric hospitalizations; with this one being the fourth admission onto this unit since October 2020. She was discharged with follow-up with the [facility]. Patient denies any history of suicide attempts in the past. Hospital course: Upon admission to the unit patient was initially presenting as depressed, disheveled, and slightly intoxicated and was slurring his words. Patient was however agreeable to initiate treatment. The patient was started on his home medication regimen of gabapentin, Zyprexa, and Wellbutrin. Wellbutrin was increased to address depressive symptoms. The patient was also evaluated by the medical team for history and physical exam during this admission. Over the course of the hospitalization, the patient's medications were gradually titrated to the final doses. The patient gradually improved in regards to his mood, anxiety, and desire to quit substances. The night prior to discharge, the patient did express extreme anxiety and began superficially scratching his forearm because he was concerned about where he would be going after discharge. The following day on the day of discharge, the patient is not reporting any suicidal or homicidal ideation, intention, and/or plan. He is denying any Firearms or other weapons. He reports that he has no desire to harm himself and that he is not feeling as anxious as before. He is denying any auditory or visual hallucinations. He denies any paranoia or other delusions. The patient does have a significant history of substance abuse and was counselor great length on avoiding all substances including alcohol, nicotine, cocaine, and opiates. The patient is scheduled for inpatient rehab at [facility] on Thursday. The patient was counseled on his medications and need for regular compliance. Prior to discharge, family meeting will be arranged by the social security specialist to address any safety issues. Mental status exam: General Appearance: Patient appears to be stated age is alert, pleasant, and cooperative. Patient is in no acute distress and has fair hygiene and grooming patient has a well-groomed hair and alicia. Behavior: Patient is calmly seated without any agitated behavior. Normal psychomotor activity. Speech: Patient's speech is fluent and nonpressured. Mood/Affect: Patient reports their mood is "much better", affect is congruent and euthymic. Suicidality/Homicidality: Patient denies having any suicidal or homicidal ideation intent or plan. Perceptions: Patient denies any auditory or visual hallucinations. Though content/process: There is no evidence of any delusional thought content and thought process is linear and goal-directed. more future oriented Memory and concentration: AOX3, grossly intact for the purposes of this session. Can spell "WORLD" backwards correctly. Judgment and insight: Improved with guarded prognosis Impression: Major depressive disorder, recurrent, severe Polysubstance abuse - cocaine, opioid, alcohol Nicotine dependence Plan: -Continue with discharge today as patient has improved and stabilized p sychiatrically and is not currently an imminent threat to himself and/or others. Patient will remain at chronically elevated risk for harm to self and/or others due to his impulsivity and polysubstance abuse. -Continue medications: Neurontin 600 mg by mouth 3 times a day for off label use for anxiety and alcohol cessation Wellbutrin XL 300 mg by mouth daily for depression Zyprexa 15 mg by mouth at bedtime for mood stabilization/augmentation Habitrol patches -Patient was counseled on the need for medication compliance and appropriate follow-up at mental health and also primary care for medical issues. Patient verbalized understanding and agreed. -Social work to arrange for and conduct family meeting to ensure safety upon discharge and answer any questions/concerns. Social work also to arrange for patients follow up appointments with [facility] for substance abuse care along with follow up with primary care provider. -Patient counseled on abstaining from recreational drugs and marijuana and alcohol. Was informed/educated on the adverse effects on their physical and mental health. Patient verbally agreed and understood. The patient is scheduled for his intake at [facility] on 02/26/2021. -Patient was instructed to return to the hospital or seek immediate medical care if their psychiatric or medical symptoms do worsen or reoccur. -Psychoeducation and supportive therapy provided to patient. Risks and benefits of pharmacological treatment versus the risks and benefits of nontreatment weight and discussed. Informed consent discussion held. Common side effects of psychotropics discussed such as, but not limited to headache, GI disturbance, sexual dysfunction, movement disorders, sedation, and orthostatic hypotension. Life threatening and blackbox warnings of prescribed medications also discussed. Potential risks of operating a vehicle or heavy machinery discussed with patient at length. Advised on importance of compliance and a reliable and responsible manner. Patient advised to review FDA consumer labeling of all medications prior to taking. Patient verbalized understanding of potential risks, and agrees with current treatment plan. Patient advised to medically contact physician/emergency personnel if any acute changes in condition occur. Laboratory Results Urine Opiates Screen Not Detected (NotDetected) 02/21/21 17:06 Ur Oxycodone Screen Not Detected (NotDetected) 02/21/21 17:06 Urine Methadone Screen Not Detected (NotDetected) 02/21/21 17:06 Ur Propoxyphene Screen Not Detected (NotDetected) 02/21/21 17:06 Ur Barbiturates Screen Not Detected (NotDetected) 02/21/21 17:06 U Tricyclic Antidepress Not Detected (NotDetected) 02/21/21 17:06 Ur Phencyclidine Scrn Not Detected (NotDetected) 02/21/21 17:06 Ur Amphetamines Screen Not Detected (NotDetected) 02/21/21 17:06 U Methamphetamines Scrn Not Detected (NotDetected) 02/21/21 17:06 U Benzodiazepines Scrn Detected (NotDetected) H 02/21/21 17:06 Urine Cocaine Screen Not Detected (NotDetected) 02/21/21 17:06 U Marijuana (THC) Screen Not Detected (NotDetected) 02/21/21 17:06 Coronavirus (PCR) Not Detected (Not Detectd) 02/18/21 16:23 Vital Signs Temp 97.7 F 02/22/21 06:32 Pulse 92 02/22/21 06:32 Resp 16 02/22/21 06:32 BP 121/77 02/22/21 06:32 Pulse Ox 98 02/19/21 06:53 Allergies Allergy/AdvReac Type Severity Reaction Status Date / Time vancomycin Allergy Rash/Hives/ Verified 02/18/21 11:02 Swelling Patient Condition at Discharge: Stable Plan - Discharge Summary Discharge Rx Participant: No New Discharge Prescriptions: New Gabapentin [Neurontin] 600 mg PO TID 30 Days cap buPROPion XL [Wellbutrin XL] 300 mg PO DAILY 30 Days tab.er.24h OLANZapine ODT [ZyPREXA Zydis] 15 mg PO HS 30 Days tab Nicotine 14Mg/24Hr Patch [Habitrol] 1 patch TRANSDERM DAILY 30 Days patch Discontinued busPIRone HCL 15 mg PO TID buPROPion XL [Wellbutrin Xl] 150 mg PO DAILY Gabapentin 600 mg PO TID OLANZapine [OLANZapine Odt] 15 mg PO HS Discharge Medication List Gabapentin [Neurontin] 600 mg PO TID 30 Days cap 02/22/21 [Rx] Nicotine 14Mg/24Hr Patch [Habitrol] 1 patch TRANSDERM DAILY 30 Days patch 02/22/21 [Rx] OLANZapine ODT [ZyPREXA Zydis] 15 mg PO HS 30 Days tab 02/22/21 [Rx] buPROPion XL [Wellbutrin XL] 300 mg PO DAILY 30 Days tab.er.24h 02/22/21 [Rx] Follow up Appointment(s)/Referral(s): [facility] [Outside] - 02/26/21 11:00 am (Intake appointment for [facility] scheduled for ThursdayFebruary 26 at 11am.) None,Stated [Primary Care Provider] - 1-2 days Patient Instructions/Handouts: Mood Disorders (DC), Depression (DC), Polysubstance Abuse (ED), Suicide Prevention (DC) Activity/Diet/Wound Care/Special Instructions: Activity and diet as tolerated. Avoid the use of street drugs and alcohol. Take all medications as prescribed. When you are in need of refills on your medications please contact your medical provider and/or outpatient psychiatrist to have this done. Please go to scheduled outpatient appointment for aftercare treatment. If symptoms return or become worse, call the crisis line at and/or go to the nearest emergency room for evaluation. Discharge Disposition: HOME SELF-CARE
== END 2021-02-22 13:15 | disposition home or self-care (01) | DRG 885 ==
LOC: EC 10:51 → 3MHU 18:00
PROVIDERS: ADMIT Psychiatry & Neurology Psychiatry; ATTEND Psychiatry & Neurology Psychiatry
DX: F31.30 Bipolar disorder, current episode depressed, mild or moderate severity, unspecified (principal); F11.20 Opioid dependence, uncomplicated; R45.851 Suicidal ideations; F10.10 Alcohol abuse, uncomplicated; F14.10 Cocaine abuse, uncomplicated; F17.200 Nicotine dependence, unspecified, uncomplicated; F41.9 Anxiety disorder, unspecified; Z59.0 Homelessness; Z79.899 Other long term (current) drug therapy; Z81.8 Family history of other mental and behavioral disorders; Z20.822 Contact with and (suspected) exposure to COVID-19
CPT/HCPCS: 80306; 82075; 87635; 99285

== ENCOUNTER 2023-01-22 09:59 | Emergency (ER) | payer MEDICAID, OTHER ==
[2023-01-22 10:04] VITALS: RESP 18
--- NOTE | 2023-01-22 10:17 | ED ---
General Adult HPI - General Chief complaint: Extremity Problem,Nontraumatic Stated complaint: R/O Blood Clot in Arm Time Seen by Provider: 01/22/23 10:05 Source: patient, RN notes reviewed, old records reviewed Mode of arrival: ambulatory Limitations: no limitations - History of Present Illness Initial comments: 42-year-old male presents for evaluation of right arm pain and swelling. Patient had blood drawn in the right antecubital fossae he also had an EMG done over the past week. He had some swelling and pain in the right arm and was concern for DVT. Prior history of DVT which was related to IV drug use. He is no longer using IV drugs. No fever. No chest pain or shortness of breath. - Related Data Previous Rx's Medication Instructions Recorded Gabapentin [Neurontin] 600 mg PO TID 30 Days cap 02/22/21 Nicotine 14Mg/24Hr Patch [Habitrol] 1 patch TRANSDERM DAILY 30 Days 02/22/21 patch OLANZapine ODT [ZyPREXA Zydis] 15 mg PO HS 30 Days tab 02/22/21 buPROPion XL [Wellbutrin XL] 300 mg PO DAILY 30 Days tab.er.24h 02/22/21 Allergies Allergy/AdvReac Type Severity Reaction Status Date / Time vancomycin Allergy Rash/Hives/ Verified 01/22/23 10:04 Swelling Review of Systems ROS Statement: Those systems with pertinent positive or pertinent negative responses have been documented in the HPI. ROS Other: All systems not noted in ROS Statement are negative. Past Medical History Past Medical History: No Reported History Additional Past Medical History / Comment(s): hep C per previous admission, blood clot in right arm History of Any Multi-Drug Resistant Organisms: None Reported Past Surgical History: Hernia Repair Past Anesthesia/Blood Transfusion Reactions: No Reported Reaction Past Psychological History: Anxiety, Depression Smoking Status: Current every day smoker, Vaper Past Alcohol Use History: None Reported Past Drug Use History: Cocaine, Heroin - Past Family History family Family Medical History: No Reported History Additional Family Medical History / Comment(s): hx of scioliosis General Exam Limitations: no limitations General appearance: alert, in no apparent distress Head exam: Present: atraumatic, normocephalic Eye exam: Present: normal appearance, PERRL ENT exam: Present: normal exam Neck exam: Present: normal inspection. Absent: tenderness, meningismus Respiratory exam: Present: normal lung sounds bilaterally. Absent: respiratory distress, wheezes Cardiovascular Exam: Present: regular rate, normal rhythm GI/Abdominal exam: Present: soft. Absent: distended, tenderness Extremities exam: Present: tenderness (Tenderness in the antecubital fossa right arm, normal range of motion, no significant erythema and no induration, distal pulses intact), other Course Vital Signs 01/22/23 10:00 Temperature 98 F Pulse Rate 86 Respiratory 18 Rate Blood Pressure 134/81 O2 Sat by Pulse 96 Oximetry Medical Decision Making - Medical Decision Making Was pt. sent in by a medical professional or institution (, [facility], [facility], urgent care, hospital, or [facility]...) When possible be specific @ -No Did you speak to anyone other than the patient for history (EMS, parent, family, police, friend...)? What history was obtained from this source @ -No Did you review nursing and triage notes (agree or disagree)? Why? @ -I reviewed and agree with nursing and triage notes Were old charts reviewed (outside hosp., previous admission, EMS record, old EKG, old radiological studies, urgent care reports/EKG's, [facility] records)? Report findings @ -No old charts were reviewed Differential Diagnosis (chest pain, altered mental status, abdominal pain women, abdominal pain men, vaginal bleeding, weakness, fever, dyspnea, syncope, headache, dizziness, GI bleed, back pain, seizure, CVA, palpatations, mental health, musculoskeletal)? @ -DVT, cellulitis, biceps strain EKG interpreted by me (3pts min.). @ -As above X-rays interpreted by me (1pt min.). @ -None done CT interpreted by me (1pt min.). @ -None done U/S interpreted by me (1pt. min.). @ -Ultrasound negative for DVT What testing was considered but not performed or refused? (CT, X-rays, U/S, labs)? Why? @ -None What meds were considered but not given or refused? Why? @ -None Did you discuss the management of the patient with other professionals (professionals i.e. [facility] Girard, [facility], lab, RT, psych nurse, nursing home social worker, hand scraper, teacher, crime prevention police officer, keycase assembler)? Give summary @ -No Was smoking cessation discussed for >3mins.? @ -No Was critical care preformed (if so, how long)? @ -No Were there social determinants of health that impacted care today? How? (Homelessness, low income, unemployed, alcoholism, drug addiction, transportation, low edu. Level, literacy, decrease access to med. care, prison, rehab)? @ -No Was there de-escalation of care discussed even if they declined (Discuss DNR or withdrawal of care, Hospice)? DNR status @ -No What co-morbidities impacted this encounter? (DM, HTN, Smoking, COPD, CAD, Cancer, CVA, ARF, Chemo, Hep., AIDS, mental health diagnosis, sleep apnea, morbid obesity)? @ -None Was patient admitted / discharged? Hospital course, mention meds given and route, prescriptions, significant lab abnormalities, going to OR and other pertinent info. @ -42-year-old male with concern for DVT, history of previous DVT in the right upper extremity. There is no signs of infection. There is a previous venous puncture site without cellulitis or induration. Normal range of motion, distal pulses intact, ultrasound performed which is negative for DVT per patient reassured and will follow up with primary care physician. Undiagnosed new problem with uncertain prognosis? @ -No Drug Therapy requiring intensive monitoring for toxicity (Heparin, Nitro, Insulin, Cardizem)? @ -No Were any procedures done? @ -No Diagnosis/symptom? @ -Right arm pain Acute, or Chronic, or Acute on Chronic? @ -[Acute Uncomplicated (without systemic symptoms) or Complicated (systemic symptoms)? @ -default Side effects of treatment? @ -No Exacerbation, Progression, or Severe Exacerbation? @ -No Poses a threat to life or bodily function? How? (Chest pain, USA, OR, pneumonia, PE, COPD, DKA, ARF, appy, cholecystitis, CVA, Diverticulitis, Homicidal, Suicidal, threat to staff... and all critical care pts) @ -No Disposition Clinical Impression: Right arm pain Disposition: HOME SELF-CARE Condition: Good Additional Instructions: Ultrasound is negative for DVT. Is patient prescribed a controlled substance at d/c from ED?: No Referrals: Bautista Gomez MD [Primary Care Provider] - 1-2 days Time of Disposition: 11:26
--- NOTE | 2023-01-22 11:15 | US ---
EXAMINATION TYPE: US venous doppler duplex UE RT DATE OF EXAM: 01/22/2023 COMPARISON: NONE CLINICAL HISTORY: 42-year-old male pain/swelling. Right arm tenderness SIDE PERFORMED: Right TECHNIQUE: Grayscale, color doppler, spectral doppler imaging performed of the deep veins of the upp er extremities FINDINGS: There is normal flow, compressibility and vascular waveforms. Right Arm: Appears negative for DVT IMPRESSION: No sonographic evidence for right upper extremity DVT.
[2023-01-22 11:36] VITALS: BP 135/80; PULSE 67; TEMP 97.8
== END 2023-01-22 11:36 | disposition home or self-care (01) ==
LOC: EC 09:59
DX: M79.601 Pain in right arm (principal); F17.290 Nicotine dependence, other tobacco product, uncomplicated; F14.90 Cocaine use, unspecified, uncomplicated; F11.90 Opioid use, unspecified, uncomplicated
CPT/HCPCS: 99284

== ENCOUNTER 2024-11-30 18:44 | Observation (INO) | payer BC, OTHER ==
[2024-11-30] MEDS: SODIUM CHLORIDE 0.9% 1,000 ML IV STA (19:06)
[2024-11-30 19:20] LABS: Basophils % (A) 0 %; Eosinophils # (A) 0.1 k/uL (0-0.7); Eosinophils % (A) 1 %; HCT 42.8 % (39.0-53.0); HGB 14.8 gm/dL (13.0-17.5); Lymphocytes # (A) 1.2 k/uL (1.0-4.8); Lymphocytes % (A) 13 %; MCH 29.8 pg (25.0-35.0); MCHC 34.6 g/dL (31.0-37.0); MCV 86.3 fL (80.0-100.0); Mean Platelet Volume 6.9; Monocytes # (A) 0.4 k/uL (0-1.0); Monocytes % (A) 5 %; Neutrophils # (A) 7.2 k/uL (1.3-7.7); Neutrophils % (A) 80 %; Platelet Count 300 k/uL (150-450); RBC 4.96 m/uL (4.30-5.90); RDW 13.1 % (11.5-15.5); WBC 8.9 k/uL (3.8-10.6)
[2024-11-30] MEDS: ASPIRIN 81 MG PO STA (19:22)
[2024-11-30] MEDS: NITROGLYCERIN SL TABS 0.4 MG TAB SUBLINGUAL STA ×2 (19:23→19:53)
[2024-11-30] MEDS: ONDANSETRON 4 MG/2 ML VIAL IVP STA (19:24)
[2024-11-30 19:31] LABS: INR 0.9 (<1.2); Partial Thromboplastin Time 23.7 sec (22.0-30.0); Prothrombin Time 10.2 sec (10.0-12.5)
--- NOTE | 2024-11-30 19:32 | XR ---
EXAMINATION TYPE: XR chest 2V DATE OF EXAM: 11/30/2024 7:18 PM COMPARISON: Chest radiographs from 11/30/2024 CLINICAL INDICATION: Male, 43 years old with history of Chest Pain; TECHNIQUE: XR chest 2V Frontal and lateral views of the chest. FINDINGS: Lungs/Pleura: There is no evidence of pleural effusion, focal consolidation, or pneumothorax. Pulmonary vascularity: Unremarkable. Heart/mediastinum: Cardiomediastinal silhouette is unremarkable. Musculoskeletal: No acute osseous pathology. IMPRESSION: No acute cardiopulmonary disease/process. [facility], , 11/30/2024 7:29 PM
[2024-11-30] MEDS: LIDOCAINE VISCOUS 2% 15 ML CUP PO ONE (20:21)
[2024-11-30] MEDS: MAG HYDROX/AL HYDROX/SIMETH 30 ML CUP PO PRN (20:22)
[2024-11-30] MEDS: LORazepam 2 MG/ML INJ IV STA (20:24)
[2024-11-30 20:38] LABS: ALT 14 U/L (4-49); AST 17 U/L (17-59); African American GFR (CKD) >90 (>60 ml/min/1.73 sqM); Albumin 4.1 g/dL (3.5-5.0); Alkaline Phosphatase 52 U/L (38-126); Anion Gap 9 mmol/L; Blood Urea Nitrogen 14 mg/dL (9-20); Calcium 9.1 mg/dL (8.4-10.2); Carbon Dioxide 29 mmol/L (22-30); Chloride 97 mmol/L (98-107); Glucose 92 mg/dL (74-99); Lipase 44 U/L (23-300); Non-African American GFR(CKD) >90 (>60 ml/min/1.73 sqM); Potassium 4.1 mmol/L (3.5-5.1); Sodium 135 mmol/L (137-145); Total Bilirubin 0.5 mg/dL (0.2-1.3); Total Protein 6.3 g/dL (6.3-8.2)
[2024-11-30] MEDS ORDERED: NALOXONE 0.4 MG/ML 1 ML VIAL IV PRN (20:56)
[2024-11-30] MEDS ORDERED: ONDANSETRON 4 MG/2 ML VIAL IVP PRN (20:56)
--- NOTE | 2024-11-30 20:56 | ED ---
General Adult HPI - General Chief complaint: Chest Pain Stated complaint: Chest pain Time Seen by Provider: 11/30/24 18:55 Source: patient, EMS, RN notes reviewed, old records reviewed Mode of arrival: EMS - History of Present Illness Initial comments: Patient is a 43-year-old male who presents emergency department complaint of chest pain. Has a history of polysubstance abuse, clean for the last 3 years. No cardiac history. Does have a history of acid reflux. Does have a history of anxiety. States he is not sure what is going on but had sudden onset of chest pain around 5 or 530 when he got out of work. Does work at a stressful job and states he was under a lot of stress today. States it is a burning pressure sensation substernally. Does not radiate. He felt nauseous with it. No diaphoresis. No shortness of breath with it. States it has subsided somewhat but is still approximately 6 out of 10. No known family cardiac history. Presents for further evaluation at this time. Does not take any medications every day other than psychiatric medications. - Related Data Previous Rx's Medication Instructions Recorded Gabapentin [Neurontin] 600 mg PO TID 30 Days cap 02/22/21 Nicotine 14Mg/24Hr Patch [Habitrol] 1 patch TRANSDERM DAILY 30 Days 02/22/21 patch OLANZapine ODT [ZyPREXA Zydis] 15 mg PO HS 30 Days tab 02/22/21 buPROPion XL [Wellbutrin XL] 300 mg PO DAILY 30 Days tab.er.24h 02/22/21 Allergies Allergy/AdvReac Type Severity Reaction Status Date / Time vancomycin Allergy Rash/Hives/ Verified 11/30/24 18:58 Swelling Review of Systems ROS Statement: Those systems with pertinent positive or pertinent negative responses have been documented in the HPI. Review of Systems: CONST: Denies fever EYES: Denies blurry vision ENT: Denies nasal congestion C/V: Endorses chest pain RESP: Denies shortness of breath GI: Denies abdominal pain : Denies dysuria SKIN: Denies rash. MSK: Denies joint pain. NEURO: Denies headache ROS Other: All systems not noted in ROS Statement are negative. 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 HEAD: Normal with no signs of head trauma. EYES: PERRLA, EOMI, conjunctiva normal, no discharge. ENT: Hearing grossly intact, normal oropharynx. RESPIRATORY: Clear breath sounds bilaterally. No wheezes, rales, or rhonchi. C/V: Regular rate and rhythm. S1 and S2 auscultated, no edema, peripheral pulses 2+ and intact throughout chest pain not reproducible on palpation. ABD: Abd is soft, nontender, nondistended EXT: Normal range of motion, no obvious deformity SKIN: No rashes or lesions observed on exposed skin. NEURO: Alert and oriented x 4. Course Vital Signs 11/30/24 11/30/24 18:49 19:01 Temperature 98.6 F Pulse Rate 70 Pulse Rate [ 67 Heel Room Supervisor ] Respiratory 22 Rate Blood Pressure 136/98 O2 Sat by Pulse 99 Oximetry Medical Decision Making - Medical Decision Making Was pt. sent in by a medical professional or institution (, PA, FENCE REPAIRMAN, urgent care, hospital, or retirement...) When possible be specific @ -No Did you speak to anyone other than the patient for history (EMS, parent, family, police, friend...)? What history was obtained from this source @ -No Did you review nursing and triage notes (agree or disagree)? Why? @ -I reviewed and agree with nursing and triage notes Were old charts reviewed (outside hosp., previous admission, EMS record, old EKG, old radiological studies, urgent care reports/EKG's, retirement records)? Report findings @ -. Reviewed prior EKG from 2019 which showed J-point elevation. Differential Diagnosis (chest pain, altered mental status, abdominal pain women, abdominal pain men, vaginal bleeding, weakness, fever, dyspnea, syncope, headache, dizziness, GI bleed, back pain, seizure, CVA, palpatations, mental health, musculoskeletal)? @ -Differential Chest Pain: Stable Angina, Unstable Angina, STEMI, NSTEMI Aortic Dissection, Pneumothorax, Musculoskeletal, Esophageal Spasm GERD, Cholecystitis, Pancreatitis, Zoster, this is not meant to be an all-inclusive list. EKG interpreted by me (3pts min.). @ -As above X-rays interpreted by me (1pt min.). @ -Chest x-ray reveals no obvious acute cardiopulmonary process. CT interpreted by me (1pt min.). @ -None done U/S interpreted by me (1pt. min.). @ -None done What testing was considered but not performed or refused? (CT, X-rays, U/S, labs)? Why? @ -None What meds were considered but not given or refused? Why? @ -None Did you discuss the management of the patient with other professionals (wilfrid maciel i.e. , PA, FENCE REPAIRMAN, lab, RT, psych nurse, social services counselor, retail loan officer, teacher, v/stol landing signal officer, case hardener)? Give summary @ -Discussed EKG findings with cardiology Dr. Paniagua who evaluated them. Was in agreement with plan for workup and no STEMI activation criteria at this time. Discussed with Dr. Amezcua of [facility] who accepted the admission. Was smoking cessation discussed for >3mins.? @ -No Was critical care preformed (if so, how long)? @ -No Were there social determinants of health that impacted care today? How? (Homelessness, low income, unemployed, alcoholism, drug addiction, transportation, low edu. Level, literacy, decrease access to med. care, long term, rehab)? @ -No Was there de-escalation of care discussed even if they declined (Discuss DNR or withdrawal of care, Hospice)? DNR status @ -No What co-morbidities impacted this encounter? (DM, HTN, Smoking, COPD, CAD, Cancer, CVA, ARF, Chemo, Hep., AIDS, mental health diagnosis, sleep apnea, morbid obesity)? @ -Substance abuse history Was patient admitted / discharged? Hospital course, mention meds given and rout e, prescriptions, significant lab abnormalities, going to OR and other pertinent info. @ -Patient presents with chest pain. No cardiac history. Polysubstance abuse history. Will obtain cardiopulmonary workup. Patient will be administered 324 mg of aspirin as well as nitro. Patient was in agreement this plan. Started on IV fluid bolus. Nitro 2 doses did nothing for the pain and patient will be given a dose of Ativan as he states he feels anxious as well as Maalox and viscous lidocaine. E KGs upon arrival did show findings concerning for possible Brugada syndrome. I discussed the results with Dr. Gaspar who reviewed the EKGs and stated there was no STEMI activation criteria at this time was in agreement plan for cardiac workup. Chest x-ray revealed no obvious acute cardiopulmonary process. Laboratory studies returned unremarkable including undetectable troponin. On reevaluation, pain has been improved following the Ativan as well as the acid reflux cocktail. Discussed results with patient. Due to the concerning findings of possible Brugada syndrome on EKG, as well as his chest pain we will admit the patient for cardiac observation. Patient was in agreement this plan. I spoke with the admitting provider, Dr. Amezcua who accepted the admission. Undiagnosed new problem with uncertain prognosis? @ -No Drug Therapy requiring intensive monitoring for toxicity (Heparin, Nitro, Insulin, Cardizem)? @ -No Were any procedures done? @ -No Diagnosis/symptom? @ -Chest pain Acute, or Chronic, or Acute on Chronic? @ -Acute Uncomplicated (without systemic symptoms) or Complicated (systemic symptoms)? @ -Complicated Side effects of treatment? @ -No Exacerbation, Progression, or Severe Exacerbation? @ -No Poses a threat to life or bodily function? How? (Chest pain, USA, ID, pneumonia, PE, COPD, DKA, ARF, appy, cholecystitis, CVA, Diverticulitis, Homicidal, Suicidal, threat to staff... and all critical care pts) @ -Possibly, yes - Lab Data Result diagrams: 11/30/24 19:08 11/30/24 20:03 Lab Results 11/30/24 11/30/24 11/30/24 Range/Units 19:08 19:08 19:08 WBC 8.9 (3.8-10.6) k/uL RBC 4.96 (4.30-5.90) m/uL Hgb 14.8 (13.0-17.5) gm/dL Hct 42.8 (39.0-53.0) % MCV 86.3 (80.0-100.0) fL MCH 29.8 (25.0-35.0) pg MCHC 34.6 (31.0-37.0) g/dL RDW 13.1 (11.5-15.5) % Plt Count 300 (150-450) k/uL MPV 6.9 Neutrophils % 80 % Lymphocytes % 13 % Monocytes % 5 % Eosinophils % 1 % Basophils % 0 % Neutrophils # 7.2 (1.3-7.7) k/uL Lymphocytes # 1.2 (1.0-4.8) k/uL Monocytes # 0.4 (0-1.0) k/uL Eosinophils # 0.1 (0-0.7) k/uL Basophils # 0.0 (0-0.2) k/uL PT 10.2 (10.0-12.5) sec INR 0.9 (<1.2) APTT 23.7 (22.0-30.0) sec Sodium (137-145) mmol/L Potassium (3.5-5.1) mmol/L Chloride (98-107) mmol/L Carbon Dioxide (22-30) mmol/L Anion Gap mmol/L BUN (9-20) mg/dL Creatinine (0.66-1.25) mg/dL Est GFR (CKD-EPI)AfAm (>60 ml/min/1.73 sqM) Est GFR (CKD-EPI)NonAf (>60 ml/min/1.73 sqM) Glucose (74-99) mg/dL Calcium (8.4-10.2) mg/dL Magnesium (1.6-2.3) mg/dL Total Bilirubin (0.2-1.3) mg/dL AST (17-59) U/L ALT (4-49) U/L Alkaline Phosphatase (38-126) U/L Troponin I <0.012 (0.000-0.034) ng/mL Total Protein (6.3-8.2) g/dL Albumin (3.5-5.0) g/dL Lipase (23-300) U/L 11/30/24 Range/Units 20:03 WBC (3.8-10.6) k/uL RBC (4.30-5.90) m/uL Hgb (13.0-17.5) gm/dL Hct (39.0-53.0) % MCV (80.0-100.0) fL MCH (25.0-35.0) pg MCHC (31.0-37.0) g/dL RDW (11.5-15.5) % Plt Count (150-450) k/uL MPV Neutrophils % % Lymphocytes % % Monocytes % % Eosinophils % % Basophils % % Neutrophils # (1.3-7.7) k/uL Lymphocytes # (1.0-4.8) k/uL Monocytes # (0-1.0) k/uL Eosinophils # (0-0.7) k/uL Basophils # (0-0.2) k/uL PT (10.0-12.5) sec INR (<1.2) APTT (22.0-30.0) sec Sodium 135 L (137-145) mmol/L Potassium 4.1 (3.5-5.1) mmol/L Chloride 97 L (98-107) mmol/L Carbon Dioxide 29 (22-30) mmol/L Anion Gap 9 mmol/L BUN 14 (9-20) mg/dL Creatinine 0.74 (0.66-1.25) mg/dL Est GFR (CKD-EPI)AfAm >90 (>60 ml/min/1.73 sqM) Est GFR (CKD-EPI)NonAf >90 (>60 ml/min/1.73 sqM) Glucose 92 (74-99) mg/dL Calcium 9.1 (8.4-10.2) mg/dL Magnesium 2.0 (1.6-2.3) mg/dL Total Bilirubin 0.5 (0.2-1.3) mg/dL AST 17 (17-59) U/L ALT 14 (4-49) U/L Alkaline Phosphatase 52 (38-126) U/L Troponin I (0.000-0.034) ng/mL Total Protein 6.3 (6.3-8.2) g/dL Albumin 4.1 (3.5-5.0) g/dL Lipase 44 (23-300) U/L - EKG Data -: EKG Interpreted by [facility] EKG Comments: 12-lead Electrocardiogram Interpretation Note EKG was reviewed and interpreted by myself. 12-lead ECG performed at 1851. Is interpreted by me as revealing normal sinus rhythm at a rate of 68 beats per minute. [place] is normal. ME interval is 173 ms, QRS durations 118 ms, QTc is 415 ms.. Patient has what may be a Brugada type findings in lead V2. Patient does have chronic J-point elevation seen on prior EKGs from 2019.. R wave progression across the precordium was satisfactory.. 12-lead Electrocardiogram Interpretation Note EKG was reviewed and interpreted by myself. 12-lead ECG performed at 1909 is interpreted by me as revealing normal sinus rhythm at a rate of 70 beats per minute. [place] is normal. ME interval is 169 ms, QRS durations 112 ms, QTc is 415 ms.. Redemonstration of the satellite findings in lead V2 with slightly more elevation in V3 that could represent a type II Brugada pattern.. R wave progression across the precordium was satisfactory.. Disposition Clinical Impression: Chest pain Disposition: ADMITTED IP TO THIS HOSP Condition: Stable Referrals: Debra Glasgow MD [Primary Care Provider] - 1-2 days Time of Disposition: 20:55
--- NOTE | 2024-11-30 22:53 | P.HPIM ---
History of Present Illness H&P Date: 11/30/24 Chief Complaint: Chest pain Patient is a 43-year-old male with a PMH of right arm DVT (12 years ago), anxiety, PTSD, depression presents to the ER with a sudden onset centrally located chest pain that started this evening. Patient reports that when he was leaving work for home in the evening he felt burning type, 8 out of 10, central chest pain which he describes it as " funny feeling" followed by numbness in the right shoulder radiating into the right arm. He was also mildly diaphoretic and felt nauseated with dry heaving. He continued to be symptomatic while he was driving back home. 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 Patient reports that he works at a [email or web address] and his job is very demanding and stressful. Patient has been experiencing sporadic episodes of similar type chest pain lasting between 1 to 2 minutes since past 1 year and attributes it to the life stressors. Patient denies use of illicit drugs such as cocaine. Although he has a history of cocaine use in the past and have underwent rehab. Last used 4 years ago. Patient also reports that he was recently treated for pneumonia outpatiently with 2 rounds of antibiotic initially with Zithromax and then made Augmentin. He denies any shortness of breath, fever, chills, cough. Patient denies headache, acute vision changes, shortness of breath, abdominal pain, constipation, diarrhea, weakness in upper or lower extremities. At the time of the interview is still experiencing 4 out of 10 centralized chest pain with some mild numbness and tingling in the right upper extremity. Laboratory data: WBC 8.9, hemoglobin 14.8, hematocrit 42.8, MCV 86.3, platelet count 300, PT 10.2, INR 0.9, APTT 23.7, sodium 135, potassium 4.1, chloride 97, bicarb 29, BUN 14, creatinine 0.74, glucose 92, total bili 0.5, AST 70, ALT 14, lipase 44 Troponin I less than 0.012 Images: Chest x-ray in the ED interpreted independently showed no acute cardiopulmonary process EKG done in the ER interpreted independently shows normal sinus rhythm with ventricular rate of 70 bpm, NV interval 169 ms, QRS duration 112 and second, QTc 450 ms. Type II Brugada pattern in V2 and V3 noted. Vitals: Tmax 98.6 F, heart rate 70, respiratory 22, blood pressure 136/98, oxygen saturation 99% of room air Review of systems: Pertinent positives and negatives as discussed in HPI, a complete review of systems was performed and all other systems are negative. Social history: Tobacco: Vaping x 5 years, 1 to 2 cigarettes/day x 20 years Alcohol: No Recreational drugs: History of cocaine abuse. Last use 4 years ago Travel: None Occupation: Clerical job [employer] Family History: Hypertension in father Physical examination: Vital signs reviewed General: non toxic, no distress, appears at stated age, normal weight Derm: no unusual rashes/lesions, warm Head: atraumatic, normocephalic, symmetric Eyes: EOMI, no lid lag, anicteric sclera, pupils equal round reactive to light ENT: Nose and ears atraumatic Neck: No cervical lymphadenopathy, trachea midline, supple Mouth: no lip lesion, mucus membranes moist Cardiovascular: S1S2 reg, no murmur, positive dorsalis pedis pulse bilateral, no edema Lungs: CTA bilateral, no rhonchi, no rales, no accessory muscle use Abdominal: soft, nontender to palpation, no guarding Ext: muscle strength 5 out of 5 in all 4 extremities grossly, no gross muscle atrophy, no contractures, Neuro: CN II-XI grossly intact, no gross focal neuro deficits Psych: Alert, oriented, appropriate affect Assessment/Plan: Patient is a 43-year-old male with a PMH of right arm DVT (not on anticoagulation), anxiety, PTSD, depression presents to the ER with a sudden onset central chest pain that started this evening. EKG in the ER showed that patient has Brugada pattern. Case was discussed with the Emergency Room provider and decision was made to admit the patient for further evaluation for chest pain in the setting of possible Brugada syndrome. #Atypical chest pain, rule out ACS #Brugada pattern noted in V2 and V3 on EKG done in the ER Patient given stat dose of aspirin 324 mg p.o. Consult cardiology Order echocardiogram Continue cardiac telemetry Initial troponin negative; continue to trend troponin Heart score: 2 for low risk #Euvolemic hyponatremia Sodium 135 Continue monitor sodium level Chronic condition: Anxiety/depression: Resume olanzapine 15 mg p.o. at bedtime Neuropathy: Resume Neurontin 600 mg p.o. 3 times daily DVT prophylaxis: Heparin 5000 units subcu every 8 hours GI prophylaxis: None F: P.o. E: Replete as needed N: Heart healthy diet A: Ambulatory baseline The patient is admitted with an anticipated less than 2 midnight stay for evaluation of chest pain and Brugada syndrome CODE STATUS: Full code Discussed with: Patient Anticipated discharge place: Pending clinical course Dictation was produced using [employer] dictation software. Please excuse any grammatical, word or spelling errors. 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 Past Anesthesia/Blood Transfusion Reactions: No Reported Reaction Past Psychological History: ADD/ADHD, Anxiety, Bipolar, Depression, PTSD Smoking Status: Current every day smoker, Vaper Past Alcohol Use History: Rare Past Drug Use History: Cocaine, Heroin, IV Drug Use - Past Family History family Family Medical History: No Reported History Additional Family Medical History / Comment(s): hx of scioliosis Medications and Allergies Home Medications Medication Instructions Recorded Confirmed Type Gabapentin [Neurontin] 600 mg PO TID 30 Days cap 02/22/21 Rx Nicotine 14Mg/24Hr Patch [Habitrol] 1 patch TRANSDERM DAILY 30 Days 02/22/21 Rx patch OLANZapine ODT [ZyPREXA Zydis] 15 mg PO HS 30 Days tab 02/22/21 Rx buPROPion XL [Wellbutrin XL] 300 mg PO DAILY 30 Days tab.er.24h 02/22/21 Rx Allergies Allergy/AdvReac Type Severity Reaction Status Date / Time vancomycin Allergy Rash/Hives/ Verified 11/30/24 18:58 Swelling Physical Exam Vitals: Vital Signs Temp Pulse Pulse Resp BP Pulse Ox 11/30/24 21:57 58 L 16 129/79 96 11/30/24 19:01 67 11/30/24 18:49 98.6 F 70 22 136/98 99 Intake and Output 11/30/24 11/30/24 11/30/24 06:59 14:59 22:59 Other: Weight 68.039 kg Results CBC & Chem 7: 11/30/24 19:08 11/30/24 20:03 Labs: Abnormal Lab Results - Last 24 Hours (Table) 11/30/24 Range/Units 20:03 Sodium 135 L (137-145) mmol/L Chloride 97 L (98-107) mmol/L
[2024-12-01] MEDS: GABAPENTIN 300 MG CAP PO SCH (00:26)
[2024-12-01] MEDS: HEPARIN SODIUM,PORCINE 5,000 UNIT/ML 1 ML VIAL SQ SCH (00:26)
[2024-12-01 08:32] LABS: Basophils # (A) 0.04 X 10*3/uL (0.00-0.10); Basophils % (A) 0.3 %; Eosinophils # (A) 0.06 X 10*3/uL (0.04-0.35); Eosinophils % (A) 0.5 %; HCT 43.5 % (39.6-50.0); HGB 14.6 g/dL (13.0-17.0); Lymphocytes # (A) 2.79 X 10*3/uL (0.90-5.00); Lymphocytes % (A) 22.5 %; MCH 29.6 pg (27.0-32.0); MCHC 33.6 g/dL (32.0-37.0); MCV 88.1 FL (80.0-97.0); Mean Platelet Volume 9.4 FL (9.5-12.2); Monocytes % (A) 8.9 %; NRBC Per 100 WBC 0 X 10*3/uL (0.00-0.01); Neutrophils # (A) 8.35 X 10*3/uL (1.80-7.70); Neutrophils % (A) 67.5 %; Platelet Count 315 X 10*3/uL (140-440); RBC 4.94 X 10*6/uL (4.40-5.60); WBC 12.38 X 10*3/uL (4.50-10.00)
[2024-12-01 09:02] LABS: ALT 15 U/L (10-49); AST 15 U/L (14-35); Albumin 4.3 g/dL (3.8-4.9); Albumin/Globulin Ratio 2.26 Ratio (1.60-3.17); Alkaline Phosphatase 43 U/L (41-126); BUN/Creat Ratio 11.75 Ratio (12.00-20.00); Blood Urea Nitrogen 9.4 mg/dL (9.0-27.0); Calcium 9.1 mg/dL (8.7-10.3); Carbon Dioxide 26.4 mmol/L (21.6-31.8); Chloride 105 mmol/L (96-109); Globulin 1.9 g/dL (1.6-3.3); Glucose 90 mg/dL (70-110); Potassium 4.7 mmol/L (3.5-5.5); Sodium 142 mmol/L (135-145); Total Bilirubin 0.4 mg/dL (0.3-1.2); Total Protein 6.2 g/dL (6.2-8.2)
--- NOTE | 2024-12-01 11:18 | CA ---
Transthoracic Echo Report Name: Donell Benítez Age: 43 Gender: M : 1980 Exam Date: 12/01/2024 08:19 Exam Location: [facility] Ht (in): 69 Wt (lb): 150 Ordering Physician: Paul Wen MD Attending/Referring Phys: Brick Carrier Izzy Birmingham RDCS Procedure CPT: Indications: Chest Pain Cardiac Hx: Technical Quality: Good Contrast 1: Total Dose (mL): Contrast 2: Total Dose (mL): MEASUREMENTS (Male / Female) Normal Values 2D ECHO LV Diastolic Diameter PLAX 5.0 cm 4.2 - 5.9 / 3.9 - 5.3 cm LV Systolic Diameter PLAX 3.0 cm IVS Diastolic Thickness 0.7 cm 0.6 - 1.0 / 0.6 - 0.9 cm LVPW Diastolic Thickness 0.7 cm 0.6 - 1.0 / 0.6 - 0.9 cm LV Relative Wall Thickness 0.3 LVOT Diameter 2.1 cm LV Diastolic Volume MOD BP 119.5 cm??? 67 - 155 / 56 - 104 cm??? LV Systolic Volume MOD BP 49.8 cm??? 22 - 58 / 19 - 49 cm??? LV Ejection Fraction MOD BP 58.3 % >= 55 % LV Cardiac Index MOD BP 2296.8 cm???/min???m??? LV Diastolic Volume MOD 4C 121.4 cm??? LV Systolic Volume MOD 4C 53.4 cm??? LV Ejection Fraction MOD 4C 56.0 % LV Cardiac Index MOD 4C 2240.0 cm???/min???m??? LV Diastolic Length 4C 8.7 cm LV Systolic Length 4C 7.2 cm LV Diastolic Volume MOD 2C 117.7 cm??? LV Systolic Volume MOD 2C 42.5 cm??? LV Ejection Fraction MOD 2C 63.9 % LV Cardiac Index MOD 2C 2480.8 cm???/min???m??? LV Diastolic Length 2C 8.7 cm LV Systolic Length 2C 6.6 cm LA Volume 48.5 cm??? 18 - 58 / 22 - 52 cm??? LA Volume Index 26.7 cm???/m??? 16 - 28 cm???/m??? DOPPLER AV Peak Velocity 133.8 cm/s AV Peak Gradient 7.2 mmHg AV Mean Velocity 92.2 cm/s AV Mean Gradient 3.8 mmHg AV Velocity Time Integral 27.7 cm LVOT Peak Velocity 109.5 cm/s LVOT Peak Gradient 4.8 mmHg LVOT Velocity Time Integral 21.5 cm LVOT Stroke Volume 73.7 cm??? LVOT Stroke Volume Index 40.3 ml/m??? LVOT Cardiac Index 2430.5 cm???/min???m??? AV Area Cont Eq vti 2.7 cm??? AV Area Cont Eq pk 2.8 cm??? MV Area PHT 4.7 cm??? Mitral E Point Velocity 76.0 cm/s Mitral A Point Velocity 49.7 cm/s Mitral E to A Ratio 1.5 MV Deceleration Time 162.8 ms PV Peak Velocity 100.9 cm/s PV Peak Gradient 4.1 mmHg FINDINGS Left Ventricle Left ventricular ejection fraction is estimated at 55-60 %. Left ventricular cavity size normal. Left ventricular wall thickness normal. No obvious regional wall motion abnormalities. Right Ventricle Normal right ventricular size and function. Unable to estimate the right ventricular systolic pressure. Right Atrium Normal right atrial size. Left Atrium Normal left atrial size. Mitral Valve Structurally normal mitral valve. No evidence for mitral valve prolapse. No mitral stenosis. Trace mitral regurgitation. Aortic Valve Trileaflet aortic valve. No aortic valve stenosis or regurgitation. Tricuspid Valve Structurally normal tricuspid valve. No tricuspid stenosis. Trace tricuspid regurgitation. Pulmonic Valve Structurally normal pulmonic valve. No pulmonic stenosis. No pulmonic regurgitation. Pericardium No pericardial effusion. Aorta Normal size aortic root and proximal ascending aorta. CONCLUSIONS Indication: angina pectoris LVEF 55 to 60% No obvious regional wall motion abnormality RV size and systolic function No significant valvular dysfunction Previewed by: Dr Odin Connell (Electronically Signed) Final Date: 01 December 2024 11:17
--- NOTE | 2024-12-01 13:17 | P.PN ---
Subjective Progress Note Date: 12/01/24 Hospital course: Patient is a 43-year-old male with a PMH of right arm DVT (12 years ago), anxiety, PTSD, depression presents to the ER with a sudden onset centrally located chest pain that started this evening. Patient reports that when he was leaving work for home in the evening he felt burning type, 8 out of 10, central chest pain which he describes it as " funny feeling" followed by numbness in the right shoulder radiating into the right arm. He was also mildly diaphoretic and felt nauseated with dry heaving. He continued to be symptomatic while he was driving back home. However, he had to discovery guide into a parking lot of a [employer] and called EMS who brought him into the ER. Patient reports that he works at a [employer] and his job is very demanding and stressful. Patient has been experiencing sporadic episodes of similar type chest pain lasting between 1 to 2 minutes since past 1 year and attributes it to the life stressors. Patient denies use of illicit drugs such as cocaine. Although he has a history of cocaine use in the past and have underwent rehab. Last used 4 years ago. Patient also reports that he was recently treated for pneumonia ou tpatiently with 2 rounds of antibiotic initially with Zithromax and then made Augmentin. He denies any shortness of breath, fever, chills, cough. Patient denies headache, acute vision changes, shortness of breath, abdominal pain, constipation, diarrhea, weakness in upper or lower extremities. At the time of the interview is still experiencing 4 out of 10 centralized chest pain with some mild numbness and tingling in the right upper extremity. Laboratory data: WBC 8.9, hemoglobin 14.8, hematocrit 42.8, MCV 86.3, platelet count 300, PT 10.2, INR 0.9, APTT 23.7, sodium 135, potassium 4.1, chloride 97, bicarb 29, BUN 14, creatinine 0.74, glucose 92, total bili 0.5, AST 70, ALT 14, lipase 44 Troponin I less than 0.012 Images: Chest x-ray in the ED interpreted independently showed no acute cardiopulmonary process EKG done in the ER interpreted independently shows normal sinus rhythm with ventricular rate of 70 bpm, CO interval 169 ms, QRS duration 112 and second, QTc 450 ms. Type II Brugada pattern in V2 and V3 noted. Vitals: Tmax 98.6 F, heart rate 70, respiratory 22, blood pressure 136/98, oxygen saturation 99% of room air Subjective: Patient seen and examined at bedside. No acute events overnight. Patient still complaining of chest pain but describes more of it as a burning sensation. Pertinent positives and negatives as discussed above, a complete review of systems was performed and all other systems are negative. Vitals: Signs Reviewed Physical Exam: General: nontoxic, no distress, appears at stated age Derm: warm, dry, intact Head: atraumatic, normocephalic, symmetric Eyes: EOMI, anicteric sclera Mouth: no lip lesion, mucus membranes moist Cardiovascular: S1 S2 reg, no murmur, rubs, or gallops Lungs: CTA bilateral, no rhonchi, no rales, no accessory muscle use Abdominal: soft, non-tender to palpataion, no appreciable organomegaly Extremities: no gross muscle atrophy, no edema, no contractures Neuro: Alert, Oriented, CNII-XII grossly intact, gait normal Psych: well appearing, appropriate affect Data Received Today: Pertinent Labs: Troponin <0.012, 0.020, 0.015, WBC 12.38 Imaging: Echo pending Assessment and Plan: Patient is a 43-year-old male with a PMH of right arm DVT (not on anticoagulation), anxiety, PTSD, depression presents to the ER with a sudden onset central chest pain that started this evening. EKG in the ER showed that patient has Brugada pattern. Case was discussed with the Emergency Room provider and decision was made to admit the patient for further evaluation for chest pain in the setting of possible Brugada syndrome. #Atypical chest pain, rule out ACS #Brugada pattern noted in V2 and V3 on EKG done in the ER Patient given stat dose of aspirin 324 mg p.o. Order echocardiogram Cardiac telemetry Troponin negative x 3 Heart score: 2 for low risk Cardiology following, echo stress test scheduled for today Chronic condition: Anxiety/depression: Resume olanzapine 15 mg p.o. at bedtime Neuropathy: Resume Neurontin 600 mg p.o. 3 times daily Resolved: Euvolemic hyponatremia DVT prophylaxis: Heparin 5000 units subcu every 8 hours GI prophylaxis: None F: PO E: Replete as needed N: Heart healthy diet A: Ambulatory baseline DVT ppx: Heparin 5000 units SQ every 8 hours Code status: Full code Anticipated discharge place: Home Anticipated discharge time: Pending clinical course Johanna Witt MD PGY-1 IM Dictation was produced using [employer] dictation software. please excuse any grammatical, word or spelling errors. I saw and evaluated the patient during the michelle and critical portions of this encounter, and discussed the case in detail with the resident author of this note, I agree with the Assessment and Plan, and my changes, if any, are highlighted in blue. Patient reports no chest pain. Reports some anxiety. Takes upwards of 13 supplements. No excessive caffeine use. Echo shows EF 55-60% and stress test is negative. Discussed with Dr. Connell, Sophiegada likely related to increased vagal tone from dry heaving prior to presentation, may need genetic testing and EP study in the outpatient setting. Discussed with patient and mother extensively. Avoid any supplement use until Cardiology follow up for Brugada. Come back to the ED for chest pain, shortness of breath, lightheadedness, palpitations, syncope. Objective - Vital Signs Vital signs: Vital Signs Temp 97.6 F 12/01/24 07:00 Pulse 63 12/01/24 07:00 Resp 18 12/01/24 07:00 BP 114/60 12/01/24 07:00 Pulse Ox 97 12/01/24 07:00 FiO2 Intake & Output 11/30/24 12/01/24 12/01/24 18:59 06:59 18:59 Weight 68.039 kg 68.039 kg Other: # Voids 2 - Labs CBC & Chem 7: 12/01/24 03:43 12/01/24 03:43 Labs: Abnormal Lab Results - Last 24 Hours (Table) 11/30/24 Range/Units 20:03 Sodium 135 L (137-145) mmol/L Chloride 97 L (98-107) mmol/L
--- NOTE | 2024-12-01 13:18 | P.CRDCN ---
History of Present Illness Consult date: 12/01/24 History of present illness: HISTORY OF PRESENTING ILLNESS: 43-year-old male with PMH of right arm DVT 12 years ago prior history of drug abuse, PTSD, depression, hepatitis C completed treatment. He presented to the hospital because of substernal chest pressure. 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 The day he presented he took 2 ibuprofens empty stomach. While driving back home he noticed sharp epigastric pain with some radiation to his right arm and right shoulder. This was associated with dry heaving and mild nausea. Admission Labs: Troponins were negative, Hb 14, Admission EKG: EKG shows normal sinus rhythm, heart rate 70 bpm, with coved ST elevation in V1 with saddleback ST segment in V2 suggestive of possible Brugada type II. Family history: Patient denies any family history of premature coronary artery disease or sudden cardiac in first-degree and second-degree relatives. No one in his family has been diagnosed with Brugada type ECG pattern. His grandfather had congestive heart failure and aortic valve replacement but has poor lifestyle choices. Social history: Patient smokes 1 to 2 cigarettes/day and vapes nicotine. He used to use drugs in the past but he has stopped it over 10 years. He denies any excessive alcohol use marijuana use. REVIEW OF SYSTEMS: 14 point review of system is negative except what is mentioned above in HPI. PHYSICAL EXAMINATION: Neck: Brisk carotid upstroke, no jugular venous distention. Lungs: Clear to auscultation. Heart: Regular rate and rhythm, S1-S2, , no murmur or rub. Abdomen: Soft nontender, positive bowel sounds. Extremities: No edema, intact distal pulses. Neuro: Alert, oritented, no focal deficits. Detailed neuro exam was not perform ed. ASSESSMENT: # Atypical chest pain, likely related to dyspepsia after taking ibuprofen. Rule out of ACS # EKG concerning of Brugada type II pattern # History of treated hepatitis C # Nicotine vaping and cigarette smoking PLAN: Obtain echocardiogram and a treadmill stress test to see exercise tolerance and see if exercise can induce or exacerbate Brugada pattern or patient has any arrhythmias or syncope. EKG is not classical but suspicious of Brugada type II. Patient denies any Pergonal respiration at nighttime, syncopal episodes, VT in the past irregular heartbeat in the past. Patient denies any family history of syncope or sudden cardiac in first and second-degree relatives. If echo and treadmill are within normal limits, patient admitted cleared from cardiovascular standpoint with recommended outpatient follow-up. We can perform SCN5A gene testing and assess if patient needs EP study Odin Connell MD, [facility] [place] Thank you for allowing [facility] to participate in this patient's care. Feel free to reach out in case of any followup questions. 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 Past Anesthesia/Blood Transfusion Reactions: No Reported Reaction Past Psychological History: ADD/ADHD, Anxiety, Bipolar, Depression, PTSD Smoking Status: Current every day smoker, Vaper Past Alcohol Use History: Rare Past Drug Use History: Cocaine, Heroin, IV Drug Use - Past Family History family Family Medical History: No Reported History Additional Family Medical History / Comment(s): hx of scioliosis Medications and Allergies Home Medications Medication Instructions Recorded Confirmed Type Gabapentin [Neurontin] 600 mg PO TID 30 Days cap 02/22/21 12/01/24 Rx Magnesium Glycinate 200 mg PO BID 12/01/24 12/01/24 History Vitamin D3/Vitamin K2 (Mk4) 1 tab PO DAILY 12/01/24 12/01/24 History [Vitamin K2 Plus D3 Tablet] tiZANidine [Zanaflex] 4 mg PO TID 12/01/24 12/01/24 History Allergies Allergy/AdvReac Type Severity Reaction Status Date / Time vancomycin Allergy Rash/Hives/ Verified 12/01/24 07:33 Swelling Physical Exam Vitals: Vital Signs Temp Pulse Pulse Resp BP BP Pulse Ox 12/01/24 12:35 97 12/01/24 07:00 97.6 F 63 18 114/60 97 12/01/24 02:50 98.5 F 56 L 16 107/60 99 12/01/24 00:29 69 11/30/24 22:27 97.5 F L 69 15 130/74 97 11/30/24 21:57 58 L 16 129/79 96 11/30/24 19:01 67 11/30/24 18:49 98.6 F 70 22 136/98 99 Intake and Output 11/30/24 12/01/24 12/01/24 22:59 06:59 14:59 Other: # Voids 2 Weight 68.039 kg 68.039 kg Results 12/01/24 03:43 12/01/24 03:43 Cardiac Enzymes 11/30/24 11/30/24 11/30/24 Range/Units 19:08 20:03 22:07 AST 17 (17-59) U/L Troponin I <0.012 0.020 (0.000-0.034) ng/mL 12/01/24 12/01/24 Range/Units 01: 03:43 AST 15 (17-59) U/L Troponin I 0.015 (0.000-0.034) ng/mL Coagulation 11/30/24 Range/Units 19:08 PT 10.2 (10.0-12.5) sec APTT 23.7 (22.0-30.0) sec CBC 11/30/24 12/01/24 Range/Units 19:08 03:43 WBC 8.9 12.38 H (3.8-10.6) k/uL RBC 4.96 4.94 (4.30-5.90) m/uL Hgb 14.8 14.6 (13.0-17.5) gm/dL Hct 42.8 43.5 (39.0-53.0) % Plt Count 300 315 (150-450) k/uL Comprehensive Metabolic Panel 11/30/24 12/01/24 Range/Units 20:03 03:43 Sodium 135 L 142 (137-145) mmol/L Potassium 4.1 4.7 (3.5-5.1) mmol/L Chloride 97 L 105 (98-107) mmol/L Carbon Dioxide 29 26.4 (22-30) mmol/L BUN 14 9.4 (9-20) mg/dL Creatinine 0.74 0.8 (0.66-1.25) mg/dL Glucose 92 90 (74-99) mg/dL Calcium 9.1 9.1 (8.4-10.2) mg/dL AST 17 15 (17-59) U/L ALT 14 15 (4-49) U/L Alkaline Phosphatase 52 43 (38-126) U/L Total Protein 6.3 6.2 (6.3-8.2) g/dL Albumin 4.1 4.3 (3.5-5.0) g/dL Current Medications Generic Name Dose Route Start Last Admin Trade Name Freq PRN Reason Stop Dose Admin Al Hydroxide/Mg Hydroxide 30 ml 11/30/24 19:57 11/30/24 20:22 Mag Hydrox/Al Hydrox/Simeth 30 Ml Cup PO 30 ml Q4HR PRN Administration GI Upset Gabapentin 600 mg 11/30/24 22:45 12/01/24 08:58 Gabapentin 300 Mg Cap PO 600 mg TID ESEQUIEL Administration Heparin Sodium (Porcine) 5,000 unit 12/01/24 00:00 12/01/24 08:58 Heparin Sodium,Porcine 5,000 Unit/Ml 1 Ml Vial SQ 5,000 unit Q8HR ESEQUIEL Administration Naloxone HCl 0.2 mg 11/30/24 20:56 Naloxone 0.4 Mg/Ml 1 Ml Vial IV Q2M PRN Opioid Reversal Ondansetron HCl 4 mg 11/30/24 20:56 Ondansetron 4 Mg/2 Ml Vial IVP Q8HR PRN Nausea And Vomiting Intake and Output 11/30/24 12/01/24 12/01/24 22:59 06:59 14:59 Other: # Voids 2 Weight 68.039 kg 68.039 kg 12/01/24 03:43 12/01/24 03:43
--- NOTE | 2024-12-01 13:42 | CA ---
Exercise Stress Test Report Name: Donell Benítez Exam Date: 12/01/2024 11:55 Exam Location: [place] Stress Ht (in): 69 Wt (lb): 148 BSA: 1.82 Ordering Phys: Odin Connell MD Referring Phys: SPIKE Amezcua Technologist: ADRIANA JOINER Age: 43 Gender: M : 1980 Procedure CPT: Indications: Chest paina and concerns of Bruagda on EKG ICD-10 Codes: Patient History: Medications: SEE CHART Meds past 24 hrs: Pretest Chest Pain: STRESS TEST Topher Protocol Exercise Duration (min:sec): 12:[address] Depressions (mm): Angina Score: Ramey Score: Resting HR (bpm): 65 Peak HR (bpm): 171 Resting BP (mmHg): 121 / 67 Peak BP (mmHg): 200 / 59 MPHR: 177 Target HR: 150 % MPHR: 97 METS: 13.6 Total Dose: Peak Dose: Atropine: Double Product: 16646 BP Response: Stress Termination: Reached target heart rate Stress Symptoms: LIGHT HEADED. Stress Summary: ECG ANALYSIS Resting ECG: Resting ECG shows sinus rhythm heart rate 65 bpm, saddleback ST segment in V2, suspicious for Brugada type II Stress ECG: Stress ECG does not show any ischemic changes. He does not show any arrhythmias or ectopic beats. It does not show any potentiation or exacerbation of ST segments in V1 and V2. CONCLUSIONS Overall normal treadmill stress test Normal hemodynamic and clinical response to treadmill exercise No evidence of syncope Excellent exercise tolerance 13.6 METS Nonischemic ECG with no exercise-induced arrhythmias. Or ectopic beats. Dr Odin Connell (Electronically Signed) Final Date: 01 December 2024 13:41
[2024-12-01 14:15] VITALS: BP 124/69; PULSE 64; RESP 17; TEMP 98.7
[2024-12-01 15:08] LABS: Chol/HDL Ratio 1.73 Ratio; LDL Cholesterol,Calculated 49.1 mg/dL (0.0-131.0); VLDL Calculation 14.84 mg/dL (5.00-40.00)
--- NOTE | 2024-12-01 16:06 | P.DS ---
Providers Date of admission: 11/30/24 20:57 Discharge Diagnosis: Atypical chest pain EKG concerning upper grade a type II pattern Euvolemic hyponatremia Anxiety Depression Neuropathy History of treated hepatitis C Nicotine abuse Hospital Course: Patient is a 43-year-old male with a PMH of right arm DVT (12 years ago), anxiety, PTSD, depression presents to the ER with a sudden onset centrally located chest pain that started this evening. Patient reports that when he was leaving work for home in the evening he felt burning type, 8 out of 10, central chest pain which he describes it as " funny feeling" followed by numbness in the right shoulder radiating into the right arm. He was also mildly diaphoretic and felt nauseated with dry heaving. He continued to be symptomatic while he was driving back home. However, he had to loop puller into a parking lot of a [employer] and called EMS who brought him into the ER. Patient reports that he works at a [employer] and his job is very demanding and stressful. Patient has been experiencing sporadic episodes of similar type chest pain lasting between 1 to 2 minutes since past 1 year and attributes it to the life stressors. Patient denies use of illicit drugs such as cocaine. Although he has a history of cocaine use in the past and have underwent rehab. Last used 4 years ago. Patient also reports that he was recently treated for pneumonia outpatient with 2 rounds of antibiotic initially with Zithromax and then made Augmentin. He denies any shortness of breath, fever, chills, cough. Patient denies headache, acute vision changes, shortness of breath, abdominal pain, constipation, diarrhea, weakness in upper or lower extremities. At the time of the interview is still experiencing 4 out of 10 centralized chest pain with some mild numbness and tingling in the right upper extremity. Laboratory data: WBC 8.9, hemoglobin 14.8, hematocrit 42.8, MCV 86.3, platelet count 300, PT 10.2, INR 0.9, APTT 23.7, sodium 135, potassium 4.1, chloride 97, bicarb 29, BUN 14, creatinine 0.74, glucose 92, total bili 0.5, AST 70, ALT 14, lipase 44 Troponin I less than 0.012 Images: Chest x-ray in the ED interpreted independently showed no acute cardiopulmonary process EKG done in the ER interpreted independently shows normal sinus rhythm with ventricular rate of 70 bpm, IL interval 169 ms, QRS duration 112 and second, QTc 450 ms. Type II Brugada pattern in V2 and V3 noted. Vitals: Tmax 98.6 F, heart rate 70, respiratory 22, blood pressure 136/98, oxygen saturation 99% of room air Patient was admitted to internal medicine service for further workup on chest pain. Cardiology was consulted. Echocardiogram ordered showing LVEF 55 to 60% with no obvious regional wall motion abnormality. Troponins trended < 0.012, 0.02, 0.015. Lipid panel was within normal limits. TSH within normal limit at 2.35. A1c 5.6 patient was seen by cardiology and underwent exercise stress test. Overall normal treadmill stress test. Patient will follow-up outpatient with cardiology to perform SCN5A gene testing and assess if patient needs EP study. Patient is to also follow-up with his PCP. Patient is being discharged home. Vital signs reviewed and stable. Physical examination: Vital signs reviewed General: non toxic, no distress, appears at stated age, normal weight Derm: no unusual rashes/lesions, warm Head: atraumatic, normocephalic, symmetric Eyes: EOMI, anicteric sclera, pupils equal round reactive to light ENT: Nose and ears atraumatic Neck: No cervical lymphadenopathy, trachea midline, supple Mouth: no lip lesion, mucus membranes moist Cardiovascular: S1S2 reg, no murmur, positive dorsalis pedis pulse bilateral, no edema Lungs: CTA bilateral, no rhonchi, no rales, no accessory muscle use Abdominal: soft, nontender to palpation, no guarding Ext: muscle strength 5 out of 5 in all 4 extremities grossly, no gross muscle atrophy Neuro: CN II-XI grossly intact, no gross focal neuro deficits Psych: Alert, oriented to person, place, and time A total of greater than 30 minutes of time were spent preparing this complex discharge summary. Patient was discharge on December 01, 2024 at 3:50 PM. Johanna Witt MD PGY-1 IM Dictation was produced using [employer] dictation software. please excuse any gr ammatical, word or spelling errors. I saw and evaluated the patient during the michelle and critical portions of this encounter, and discussed the case in detail with the resident author of this note, I agree with the Assessment and Plan, and my changes, if any, are highlighted in blue. Patient reports no chest pain. Reports some anxiety. Takes upwards of 13 johnston pplements. No excessive caffeine use. Echo shows EF 55-60% and stress test is negative. Discussed with Dr. Connell, Brayanda likely related to increased vagal tone from dry heaving prior to presentation, may need genetic testing and EP study in the outpatient setting. Discussed with patient and mother extensively. Avoid any supplement use until Cardiology follow up for Brugada. Come back to the ED for chest pain, shortness of breath, lightheadedness, palpitations, syncope. Expected date of discharge: 12/01/24 Attending physician: Austin Amezcua MD Consults: 11/30/24 20:56 Consult Physician Routine Consulting Provider: [facility] Consult Reason/Comments: chest pain, ekg concerning possibly for brugada. spoke with manuel Do you want consulting provider notified?: Yes Primary care physician: Debra Glasgow Patient Condition at Discharge: Stable Plan - Discharge Summary Discharge Rx Participant: No New Discharge Prescriptions: Continue Gabapentin [Neurontin] 600 mg PO TID 30 Days cap Magnesium Glycinate 200 mg PO BID tiZANidine [Zanaflex] 4 mg PO TID Vitamin D3/Vitamin K2 (Mk4) [Vitamin K2 Plus D3 Tablet] 1 tab PO DAILY Discharge Medication List Gabapentin [Neurontin] 600 mg PO TID 30 Days cap 02/22/21 [Rx] Magnesium Glycinate 200 mg PO BID 12/01/24 [History] Vitamin D3/Vitamin K2 (Mk4) [Vitamin K2 Plus D3 Tablet] 1 tab PO DAILY 12/01/24 [History] tiZANidine [Zanaflex] 4 mg PO TID 12/01/24 [History] Follow up Appointment(s)/Referral(s): Odin Connell MD [Medical Doctor] - 12/09/24 9:00 am Debra Glasgow MD [Primary Care Provider] - 1-2 days (please call for an appointment ) Patient Instructions/Handouts: Chest Pain (DC) Discharge/Stand Alone Forms: Work/School Release / Restrict Discharge Disposition: HOME SELF-CARE
[2024-12-01] MEDS ORDERED: OLANZapine ODT 5 MG TAB PO SCH (21:00)
== END 2024-12-01 16:40 | disposition home or self-care (01) ==
LOC: EC 18:44 → 6NMEDSUR 20:57
PROVIDERS: ADMIT Internal Medicine; ATTEND Internal Medicine
DX: R07.89 Other chest pain (principal); K21.9 Gastro-esophageal reflux disease without esophagitis; F41.9 Anxiety disorder, unspecified; F31.9 Bipolar disorder, unspecified; E87.1 Hypo-osmolality and hyponatremia; G62.9 Polyneuropathy, unspecified; F17.210 Nicotine dependence, cigarettes, uncomplicated; F17.290 Nicotine dependence, other tobacco product, uncomplicated; Z86.19 Personal history of other infectious and parasitic diseases; Z86.718 Personal history of other venous thrombosis and embolism; Z79.899 Other long term (current) drug therapy; Z88.1 Allergy status to other antibiotic agents
CPT/HCPCS: 96372; 96374; 96375; 99285; 36415; 94760; 93005; 93017; 93306; 80061; 80053 ×2; 84443; 83690; 83735; 84484 ×2; 85025 ×2; 85610; 85730; 83036; 71046; G0378 ×2; J2060; J1644; J2405